=== PATIENT | male | born 1940 | race Caucasian/White ===

== ENCOUNTER 2017-11-11 10:13 | Emergency (ER) | payer OTHER, MEDICARE ==
--- NOTE | 2017-11-11 10:25 | PDOC ---
History of Present Illness - General Chief Complaint: Pain Stated Complaint: LOWER BACK PAIN AND LEFT HIP PAIN Time Seen by Provider: 11/11/17 10:18 History Source: Patient, Family (Information provided by patient ( somehow forgetful) and his son present here. Patient walked in with support and difficulty. He , reportedely fell out of bed during the night , unable to get up by himself went downstairs on his buttocks, then called son for help. ), Primary Care Provider (Received phone call from Dr Jackson, concerd about this patient being noncompliant with his blood work , daily BS check-up etc) - History of Present Illness Timing/Duration: 24 hours Severity: moderate, severe Associated Symptoms: reports: malaise, weakness Past History - Travel Traveled outside of the country in the last 30 days: No Close contact w/someone who was outside of country & ill: No - Past Medical History Allergies/Adverse Reactions: Allergies Allergy/AdvReac Type Severity Reaction Status Date / Time No Known Drug Allergies Allergy Verified 05/24/12 17:17 Home Medications: Ambulatory Orders Allopurinol [Zyloprim -] 100 mg PO DAILY 11/11/17 Amlodipine Besylate 5 mg PO DAILY 11/11/17 Aspirin 81 mg PO HS 11/11/17 Brimonidine Tartrate [Alphagan P 0.1% -] 1 drop OS DAILY 11/11/17 Carvedilol [Coreg -] 25 mg PO BID 11/11/17 Empagliflozin [Jardiance] 10 mg PO DAILY 11/11/17 Finasteride [Proscar -] 5 mg PO HS 11/11/17 Glipizide Xl [Glucotrol Xl -] 5 mg PO BID 11/11/17 Ramipril 2.5 mg PO DAILY 11/11/17 Simvastatin 10 mg PO HS 11/11/17 Sitagliptin Phosphate [Januvia] 100 mg PO DAILY 11/11/17 Tamsulosin HCl [Flomax -] 0.4 mg PO HS 11/11/17 Timolol 0.5% [Timoptic 0.5%] 1 drop OS DAILY 11/11/17 Anemia: No Asthma: No Cancer: Yes (RENAL CANCER) Cardiac Disorders: No CVA: No COPD: No CHF: No Dementia: No Diabetes: Yes GI Disorders: No Disorders: Yes (H/O RENAL CANCER) HTN: Yes Hypercholesterolemia: Yes Liver Disease: No Seizures: No Thyroid Disease: No - Surgical History Abdominal Surgery: No Appendectomy: No Cardiac Surgery: No Cholecystectomy: No Lung Surgery: Yes (bronchoscopy) Neurologic Surgery: No Orthopedic Surgery: Yes (RADIOFREQUENCY ABLATION) - Suicide/Smoking/Psychosocial Hx Smoking Status: Yes Smoking History: Former smoker Have you smoked in the past 12 months: No Number of Cigarettes Smoked Daily: 0 If you are a former smoker, when did you quit?: 1989 Hx Alcohol Use: Yes (RARELY) Drug/Substance Use Hx: No Substance Use Type: Alcohol Hx Substance Use Treatment: No Review of Systems - Review of Systems Able to Perform ROS?: Yes (limitations due to memory) Is the patient limited Lithuanian proficient: Yes Constitutional: Yes: Symptoms Reported, See HPI, Malaise HEENTM: No: Symptoms Reported, See HPI, Eye Pain, Blurred Vision, Tearing, Recent change in vision, Double Vision, Cataracts, Ear Pain, Ocular Prothesis, Ear Discharge, Nose Pain, Nose Congestion, Tinnitus, Nose Bleeding, Hearing Loss , Throat Pain, Throat Swelling, Mouth Pain, Dental Problems, Difficulty Swallowing, Mouth Swelling, Other Respiratory: Yes: SOB with Exertion Cardiac (ROS): No: Symptoms Reported, See HPI, Chest Pain, Edema, Irregular Heart Rate, Lightheadedness, Palpitations, Syncope, Chest Tightness, Other ABD/GI: No: Symptoms Reported, See HPI, Abdominal Distended, Abd. Pain w/ defecation, Blood Streaked Bowels, Constipated, Diarrhea, Difficulty Swallowing , Nausea, Poor Appetite, Poor Fluid Intake, Rectal Bleeding, Vomiting, Indigestion, Abdominal cramping, Tarry Stools, Other Musculoskeletal: Yes: See HPI, Joint Pain, Muscle Pain, Muscle Weakness Integumentary: No: Symptoms Reported, See HPI, Bruising, Change in Color, Change in Hair/Nails, Dryness, Erythema, Flushing, Lesions, Lumps, Pallor, Pruritus, Rash, Sweating, Other Neurological: Yes: Pre-Existing Deficit, Unsteady Gait, Other (memory impairment ) Psychiatric: Yes: Depression Hematologic/Lymphatic: Yes: Easy Bruising All Other Systems: Reviewed and Negative *Physical Exam - Physical Exam General Appearance: Yes: Nourished, Appropriately Dressed, Moderate Distress HEENT: positive: [place] Neck: positive: Supple Respiratory/Chest: positive: Lungs Clear Extremity: positive: Normal Capillary Refill, Normal Range of Motion, Tender ( Tender at palpation on the left lateral hip/pelvis area) Integumentary: positive: Normal Color, Dry, Other (Few old healing echymotic areas over upper extremities.) ED Treatment Course - LABORATORY CBC & Chemistry Diagram: 11/11/17 11:10 11/11/17 11:10 *DC/Admit/Observation/Transfer Diagnosis at time of Disposition: Uncontrolled diabetes mellitus Qualifiers: Diabetes mellitus type: type 2 Diabetes mellitus usp insulin use: unspecified usp insulin use status Diabetes mellitus complication status: with kidney complications Diabetes mellitus complication detail: with chronic kidney disease Chronic kidney disease stage: stage 2 (mild) Qualified Code(s): E11.22 - Type 2 diabetes mellitus with diabetic chronic kidney disease; E11.65 - Type 2 diabetes mellitus with hyperglycemia; E11.65 - Type 2 diabetes mellitus with hyperglycemia; E11.65 - Type 2 diabetes mellitus with hyperglycemia; E11.65 - Type 2 diabetes mellitus with hyperglycemia; N18.2 - Chronic kidney disease, stage 2 (mild); N18.2 - Chronic kidney disease, stage 2 (mild) Contusion, hip Qualifiers: Encounter type: initial encounter Laterality: left Qualified Code(s): S70.02XA - Contusion of left hip, initial encounter - Discharge Dispostion Condition at time of disposition: Stable - Referrals Referrals: Joao Lee MD [Staff Physician] - - Patient Instructions Printed Discharge Instructions: Complications of Type 2 Diabetes, Type 2 Diabetes Additional Instructions: Take medication daily as prescribed by your physician. See your doctor in 2 days - Post Discharge Activity
[2017-11-11 10:30] VITALS: TEMP 98.3; BMI 28.2
[2017-11-11 11:51] LABS: BASO % 0.4 % (0-2.0); HEMATOCRIT 47.6 % (35.4-49); LYMPH % 14.2 % (8-40); MCH 29.9 pg (25.7-33.7); MCHC 33.7 g/dl (32.0-35.9); MEAN CELL VOLUME 88.6 fl (80-96); MEAN PLT VOLUME 9.1 fl (7.5-11.1); MONO % 8.2 % (3.8-10.2); NEUT % 76.2 % (42.8-82.8); PLATELET COUNT 230 K/MM3 (134-434); RBC 5.37 M/mm3 (4.00-5.60); RDW 12.4 % (11.9-15.9); WHITE BLOOD COUNT 10.4 K/mm3 (4.0-10.8)
[2017-11-11 12:33] LABS: PH,URINE 5.5 (4.5-8); URINE APPEARANCE Clear; URINE BILIRUBIN Negative (NEGATIVE); URINE GLUCOSE (UA) 3+ (NEGATIVE); URINE KETONE 1+ (NEGATIVE); URINE LEUK ESTERASE Negative (NEGATIVE); URINE NITRITE Positive (NEGATIVE); URINE UROBILINOGEN 0.2 (0.2-1.0)
[2017-11-11 13:03] LABS: ALBUMIN 4.1 g/dl (3.4-5.0); ANION GAP 7 (8-16); BLOOD UREA NITROGEN 23 mg/dL (7-18); CALCIUM 9.2 mg/dL (8.5-10.1); CHLORIDE 102 mmol/L (98-107); CO2 29 mmol/L (21-32); POTASSIUM 4.1 mmol/L (3.5-5.1); SODIUM 138 mmol/L (136-145)
[2017-11-11 13:10] LABS: ALK PHOS 97 U/L (45-117); BILIRUBIN,TOTAL 1.3 mg/dL (0.2-1.0); CREATININE 1.5 mg/dL (0.7-1.3); SGOT/AST 13 U/L (15-37); SGPT/ALT 20 U/L (12-78); TOT PROT 6.7 g/dl (6.4-8.2)
[2017-11-11 13:14] LABS: URINE BLOOD 2+ (NEGATIVE); URINE COLOR YELLOW; URINE PROTEIN 2+ (NEGATIVE)
[2017-11-11 13:19] LABS: GLUCOSE,RANDOM 367 mg/dL (74-106)
[2017-11-11 13:31] LABS: EPI CELLS FEW /HPF; URINE CRYSTALS MODERATE /hpf (NONE SEEN); URINE WBC 0-3 (0-2)
[2017-11-11 14:33] VITALS: BP 186/96; PULSE 68
--- NOTE | 2017-11-12 15:57 | EKG ---
Test Reason : Blood Pressure : / mmHG Vent. Rate : 075 BPM Atrial Rate : 075 BPM P-R Int : 156 ms QRS Dur : 096 ms QT Int : 392 ms P-R-T Axes : 060 049 072 degrees QTc Int : 437 ms NORMAL SINUS RHYTHM NORMAL ECG WHEN COMPARED WITH ECG OF 11-JUL-2009 17:12, NO SIGNIFICANT CHANGE WAS FOUND Confirmed by LORENZO SANTILLAN MD ([id number]) on 11/12/2017 3:57:16 PM Referred By: MAUDE LITTLEJOHN Confirmed By:LORENZO SANTILLAN MD
== END 2017-11-11 14:50 | disposition home or self-care (01) ==
LOC: FER 10:13
DX: S70.02XA Contusion of left hip, initial encounter (principal); I12.9 Hypertensive chronic kidney disease with stage 1 through stage 4 chronic kidney disease, or unspecified chronic kidney disease; E11.22 Type 2 diabetes mellitus with diabetic chronic kidney disease; E11.65 Type 2 diabetes mellitus with hyperglycemia; N18.2 Chronic kidney disease, stage 2 (mild); E78.00 Pure hypercholesterolemia, unspecified; Z85.528 Personal history of other malignant neoplasm of kidney; Z87.891 Personal history of nicotine dependence; W06.XXXA Fall from bed, initial encounter; Y93.84 Activity, sleeping; Y92.003 Bedroom of unspecified non-institutional (private) residence as the place of occurrence of the external cause
CPT/HCPCS: 36415; 71046-TC-FY; 73523-TC-FY; 80053; 81003; 81015; 82550; 82553; 83036; 84153; 84484; 85025; 87086; 87186; 93005; 99284-25

== ENCOUNTER 2018-01-15 18:03 | Emergency (ER) | payer OTHER, MEDICARE ==
--- NOTE | 2018-01-15 18:55 | PDOC ---
History of Present Illness - General History Source: Patient, Family Exam Limitations: No Limitations - History of Present Illness Initial Comments: 01/15/18 18:58 The patient is a 77 year old male, with a significant past medical history of right nephrectomy for renal cell cancer in 2008, hypertension, hyperlipidemia, diabetes, gout, spinal stenosis, generalized OA,, who presents to the emergency department with, 2 days of worsening hematuria. As per patient, his hematuria began yesterday as bits and pieces and was since progressed as completely blood. He reports associated urinary retention. He reports a similar episode in the past due to a UTI. He denies any recent fevers, chills, headache or dizziness. He denies any recent nausea, vomit, diarrhea or constipation. He denies any recent chest pain or shortness of breath. He denies any recent dysuria, frequency, or urgency. Allergies: NKA Past surgical history: Right nephrectomy. Primary Care Physician: Dr. Lee <Ying Lee - Last Filed: 01/15/18 18:57> - General History Source: Patient, Family Exam Limitations: No Limitations <Jarad Hall - Last Filed: 01/16/18 09:44> - General Chief Complaint: Hematuria Stated Complaint: HEMATURIA Time Seen by Provider: 01/15/18 18:19 Past History <Ying Lee - Last Filed: 01/15/18 18:57> - Past Medical History Anemia: No Asthma: No Cancer: Yes (RENAL CANCER) Cardiac Disorders: No CVA: No COPD: No CHF: No Dementia: No Diabetes: Yes GI Disorders: No Disorders: Yes (H/O RENAL CANCER) HTN: Yes Hypercholesterolemia: Yes Liver Disease: No Seizures: No Thyroid Disease: No - Surgical History Abdominal Surgery: No Appendectomy: No Cardiac Surgery: No Cholecystectomy: No Lung Surgery: Yes (bronchoscopy) Neurologic Surgery: No Orthopedic Surgery: Yes (RADIOFREQUENCY ABLATION) - Suicide/Smoking/Psychosocial Hx Smoking Status: Yes Smoking History: Former smoker Have you smoked in the past 12 months: No Number of Cigarettes Smoked Daily: 0 If you are a former smoker, when did you quit?: 1989 Hx Alcohol Use: Yes (RARELY) Drug/Substance Use Hx: No Substance Use Type: Alcohol Hx Substance Use Treatment: No <Jarad Hall - Last Filed: 01/16/18 09:44> - Past Medical History Allergies/Adverse Reactions: Allergies Allergy/AdvReac Type Severity Reaction Status Date / Time No Known Drug Allergies Allergy Verified 01/15/18 18:04 Home Medications: Ambulatory Orders Allopurinol [Zyloprim -] 100 mg PO DAILY 11/11/17 Aspirin 81 mg PO HS 11/11/17 Carvedilol [Coreg -] 25 mg PO BID 11/11/17 Glipizide Xl [Glucotrol Xl -] 10 mg PO BID 11/11/17 Ramipril 2.5 mg PO HS 11/11/17 Simvastatin 10 mg PO HS 11/11/17 Tamsulosin HCl [Flomax -] 0.4 mg PO HS 11/11/17 Ciprofloxacin [Cipro -] 500 mg PO Q12H #14 tablet 01/15/18 Empagliflozin [Jardiance] 25 mg PO DAILY 01/15/18 Finasteride 5 mg PO HS 01/15/18 Sitagliptin Phosphate [Januvia] 100 mg PO DAILY 01/15/18 Review of Systems - Review of Systems Able to Perform ROS?: Yes Comments:: 01/15/18 18:58 GENERAL/CONSTITUTIONAL: No fever or chills. No weakness. HEAD, EYES, EARS, NOSE AND THROAT: No change in vision. No ear pain or discharge. No sore throat. CARDIOVASCULAR: No chest pain or shortness of breath. RESPIRATORY: No cough, wheezing, or hemoptysis. GASTROINTESTINAL: No nausea, vomiting, diarrhea or constipation. +GENITOURINARY: Hematuria. Retention. No dysuria, frequency, or change in urination. MUSCULOSKELETAL: No joint or muscle swelling or pain. No neck or back pain. SKIN: No rash NEUROLOGIC: No headache, vertigo, loss of consciousness, or change in strength/ sensation. ENDOCRINE: No increased thirst. No abnormal weight change. HEMATOLOGIC/LYMPHATIC: No anemia, easy bleeding, or history of blood clots. ALLERGIC/IMMUNOLOGIC: No hives or skin allergy. All Other Systems: Reviewed and Negative <Ying Lee - Last Filed: 01/15/18 18:57> *Physical Exam - Physical Exam Comments: 01/15/18 18:58 GENERAL: Awake, alert, and fully oriented, in no acute distress HEAD: No signs of trauma NECK: Normal ROM, supple, no lymphadenopathy, JVD, or masses LUNGS: Breath sounds equal, clear to auscultation bilaterally. No wheezes, and no crackles HEART: Regular rate and rhythm, normal S1 and S2, no murmurs, rubs or gallops ABDOMEN: Soft, nontender, normoactive bowel sounds. No guarding, no rebound. No masses : Penis circumcised. No tenderness or discharge. EXTREMITIES: Normal range of motion, no edema. No clubbing or cyanosis. No cords, erythema, or tenderness NEUROLOGICAL: Cranial nerves II through XII grossly intact. Normal speech, normal gait SKIN: Warm, Dry, normal turgor, no rashes or lesions noted. <Ying Lee - Last Filed: 01/15/18 18:57> ED Treatment Course - LABORATORY CBC & Chemistry Diagram: 01/15/18 19:00 01/15/18 19:00 <Jarad Hall - Last Filed: 01/16/18 09:44> Medical Decision Making - Medical Decision Making 01/15/18 18:53 A portion of this note was documented by scribe services under my direction. I have reviewed the details of the note, within reason, and agree with the documentation with the following case summary and management plan written by me. Patient treated in the ED. Nursing notes are reviewed and incorporated into the medical decision-making. Vital signs reviewed. Peripheral IV access obtained by the nurse, laboratory studies are drawn and sent, reviewed and interpreted by myself. 77-year-old male with past medical history of renal cancer status post nephrectomy, hypertension, diabetes, hyperlipidemia, prior urinary tract infection Presents with hematuria. The patient reported the symptoms initiated yesterday. Stated that he was having some blood per stream. Denies dysuria. Denies fevers chills or abdominal pain. Patient did have a similar episode some time ago which was diagnosed as a urinary tract infection. Patient does report a prior history of renal CA status post nephrectomy. However, patient has not had a recent cystoscopy. We'll need to rule out urine tract infection. However, I advised the patient that he will likely benefit from another cystoscopy to rule out malignancy. We' ll obtain blood work and a urinalysis with urine culture. The patient will be referred to a urologist. Patient verbalizes understanding agrees with plan. 01/15/18 19:29 Urine Test Results Urine Color Dk yellow 01/15/18 19:00 Urine Appearance Cloudy 01/15/18 19:00 Urine pH 5.0 (4.5-8) 01/15/18 19:00 Ur Specific [place] 1.010 (1.005-1.025) 01/15/18 19:00 Urine Protein 3+ (NEGATIVE) H 01/15/18 19:00 Urine Glucose (UA) 2+ (NEGATIVE) H 01/15/18 19:00 Urine Ketones Negative (NEGATIVE) 01/15/18 19:00 Urine Blood 3+ (NEGATIVE) H 01/15/18 19:00 Urine Nitrite Negative (NEGATIVE) 01/15/18 19:00 Urine Bilirubin Negative (NEGATIVE) 01/15/18 19:00 Ur Leukocyte Esterase Trace (NEGATIVE) H 01/15/18 19:00 Pt signed out to Dr. Jackson for further management and disposition. <Jarad Hall - Last Filed: 01/16/18 09:44> *DC/Admit/Observation/Transfer - Attestations Scribe Attestion: 01/15/18 18:58 Documentation prepared by Ying Lee, acting as medical assistant secretary for Jarad Hall MD. <Ying Lee - Last Filed: 01/15/18 18:57> <Jarad Hall - Last Filed: 01/16/18 09:44> Diagnosis at time of Disposition: Hematuria Qualifiers: Hematuria type: unspecified type Qualified Code(s): R31.9 - Hematuria, unspecified - Discharge Dispostion Disposition: HOME Condition at time of disposition: Stable - Prescriptions Prescriptions: Ciprofloxacin [Cipro -] 500 mg PO Q12H #14 tablet - Referrals Referrals: Vincenzo Cooley MD [Staff Physician] - - Patient Instructions Printed Discharge Instructions: DI for Hematuria Additional Instructions: Please take the 500 mg ciprofloxacin every 12 hours for 1 week. Please complete the antibiotics. It is very important that you follow up with urology as you may benefit from a cystoscopy. Anytime there is blood in the urine, there is always concerning findings for potential renal or bladder cancer. Drink plenty of fluids and rest.
[2018-01-15 19:23] LABS: URINE APPEARANCE Cloudy; URINE BILIRUBIN Negative (NEGATIVE); URINE GLUCOSE (UA) 2+ (NEGATIVE); URINE KETONE Negative (NEGATIVE); URINE NITRITE Negative (NEGATIVE); URINE UROBILINOGEN 0.2 (0.2-1.0)
[2018-01-15 19:24] LABS: URINE COLOR DK YELLOW; URINE LEUK ESTERASE TRACE (NEGATIVE); URINE PROTEIN 3+ (NEGATIVE)
[2018-01-15] MEDS ORDERED: CIPROFLOXACIN 500 MG TABLET (RESTRICTED TO ID) PO ONE (19:25)
[2018-01-15 19:28] LABS: BASO % 0.7 % (0-2.0); EOS % 3.4 % (0-4.5); HEMATOCRIT 45.2 % (35.4-49); HEMOGLOBIN 15.2 GM/dl (11.7-16.9); LYMPH % 12.9 % (8-40); MCH 30.1 pg (25.7-33.7); MCHC 33.6 g/dl (32.0-35.9); MEAN CELL VOLUME 89.6 fl (80-96); MEAN PLT VOLUME 8.9 fl (7.5-11.1); MONO % 8.8 % (3.8-10.2); NEUT % 74.2 % (42.8-82.8); PLATELET COUNT 222 K/MM3 (134-434); RBC 5.04 M/mm3 (4.00-5.60); RDW 12.8 % (11.9-15.9); WHITE BLOOD COUNT 14.5 K/mm3 (4.0-10.8)
[2018-01-15] MEDS ORDERED: CIPROFLOXACIN 250 MG TABLET (RESTRICTED TO ID) PO ONE (19:29)
[2018-01-15 19:32] VITALS: BP 160/83; PULSE 81; TEMP 98.4; BMI 25.2
[2018-01-15 19:35] LABS: ALBUMIN 4.2 g/dl (3.5-5.0); ALK PHOS 70 U/L (32-92); ANION GAP 8 (8-16); BILIRUBIN,TOTAL 0.6 mg/dl (0.2-1.0); BLOOD UREA NITROGEN 24 mg/dl (7-18); CALCIUM 9.1 mg/dl (8.4-10.2); CHLORIDE 103 mmol/L (98-107); CO2 27 mmol/L (22-28); CREATININE 1.5 mg/dl (0.6-1.3); GLUCOSE,RANDOM 187 mg/dl (74-106); POTASSIUM 3.8 mmol/L (3.5-5.1); SGOT/AST 18 U/L (10-42); SGPT/ALT 14 U/L (10-40); SODIUM 138 mmol/L (136-145); TOT PROT 6.7 g/dl (6.4-8.3)
[2018-01-15 22:02] LABS: URINE BACTERIA FEW /hpf (NEGATIVE); URINE RBC MANY /hpf (0-3); URINE WBC 20-30 (0-2)
== END 2018-01-15 20:23 | disposition home or self-care (01) ==
LOC: FER 18:03
DX: R31.9 Hematuria, unspecified (principal); I10 Essential (primary) hypertension; Z87.891 Personal history of nicotine dependence; E78.00 Pure hypercholesterolemia, unspecified; E11.9 Type 2 diabetes mellitus without complications
CPT/HCPCS: 36415; 80053; 81003; 81015; 85025; 87086; 99281-25

== ENCOUNTER 2018-04-27 11:17 | Observation (INO) | payer OTHER, MEDICARE ==
[2018-04-27] MEDS ORDERED: HEMOQUE CONTROL SOLUTION ONE (11:28)
[2018-04-27] MEDS ORDERED: SODIUM CHLORIDE 1,000 ML IV SCH (11:30)
--- NOTE | 2018-04-27 11:53 | PDOC ---
History of Present Illness - General Chief Complaint: Altered Mental Status Stated Complaint: AMS Time Seen by Provider: 04/27/18 11:20 - History of Present Illness Initial Comments: 04/27/18 11:53 77 yo M with h/o HTN, HLD, DM, s/p right neprhectomy, renal ca. 2009, spinal stenosis, and dementia BIBA with altered mental status. Per patient son and patient at bedside, patient has had increased agitation over the past 24 hours, with episode of combativeness, and increased irritation yesterday evening. Son reports recent change in mood, with worsening angry outbursts, and increased forgetfulness. Patient states that patient was unresponsive to verbal stimuli tjhis AM, and stared at her with "blank expression," this morning, and did not respond to questions, or commands, lasting for 30 minutes. This prompted ED encounter. reports last known well at 1000 PM yesterday evening prior to pt. falling asleep. Patient woke up this AM at 0900. Patient typically ambulates with cane unassisted, with no recent difficulty with ambulation. Lives with alone at home, and has home health aide. 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 Patient denies N/V, F,C, CP, SOB, urinary complaints, abdominal pain, diarrhea, constipation, lightheadedness, sensory changes. PMHx: as noted above ROS: as noted SHx: Denies Etoh,tobacco, IVDA Allergies:NKDA Past History - Past Medical History Allergies/Adverse Reactions: Allergies Allergy/AdvReac Type Severity Reaction Status Date / Time No Known Drug Allergies Allergy Verified 04/27/18 11:33 Home Medications: Ambulatory Orders Allopurinol [Zyloprim -] 100 mg PO ASDIR 04/27/18 Aspirin [Dakota Chewable] 81 mg PO HS 04/27/18 Carvedilol [Coreg -] 25 mg PO BID 04/27/18 Duloxetine HCl [Cymbalta -] 30 mg PO BID 04/27/18 Empagliflozin [Jardiance] 25 mg PO DAILY 04/27/18 Finasteride [Proscar] 5 mg PO HS 04/27/18 Glipizide [Glucotrol -] 5 mg PO BID 04/27/18 Ramipril [Altace] 2.5 mg PO HS 04/27/18 Simvastatin [Zocor] 10 mg PO HS 04/27/18 Sitagliptin Phosphate [Januvia] 100 mg PO DAILY 04/27/18 Tamsulosin HCl [Flomax] 0.4 mg PO HS 04/27/18 Anemia: No Asthma: No Cancer: Yes (RENAL CANCER) Cardiac Disorders: No CVA: No COPD: No CHF: No Dementia: No Diabetes: Yes GI Disorders: No Disorders: Yes (H/O RENAL CANCER) HTN: Yes Hypercholesterolemia: Yes Liver Disease: No Seizures: No Thyroid Disease: No - Surgical History Abdominal Surgery: No Appendectomy: No Cardiac Surgery: No Cholecystectomy: No Lung Surgery: Yes (bronchoscopy) Neurologic Surgery: No Orthopedic Surgery: Yes (RADIOFREQUENCY ABLATION) - Suicide/Smoking/Psychosocial Hx Smoking Status: Yes Smoking History: Unknown if ever smoked Have you smoked in the past 12 months: No Number of Cigarettes Smoked Daily: 0 If you are a former smoker, when did you quit?: 1989 Hx Alcohol Use: No (UNABLE TO OBTAIN) Drug/Substance Use Hx: No (UNABLE TO OBTAIN) Substance Use Type: Alcohol Hx Substance Use Treatment: No Neuro Specific PMHX - Complaint Specific PMHX Glaucoma: No Review of Systems - Review of Systems Comments:: 04/27/18 11:54 GENERAL/CONSTITUTIONAL: No fever or chills. No weakness. HEAD, EYES, EARS, NOSE AND THROAT: No change in vision. No ear pain or discharge. No sore throat. CARDIOVASCULAR: No chest pain or shortness of breath RESPIRATORY: No cough, wheezing, or hemoptysis. GASTROINTESTINAL: No nausea, vomiting, diarrhea or constipation. GENITOURINARY: No dysuria, frequency, or change in urination. MUSCULOSKELETAL: No joint or muscle swelling or pain. No neck or back pain. SKIN: No rash NEUROLOGIC: No headache, vertigo, loss of consciousness, or change in strength/ sensation. ENDOCRINE: No increased thirst. No abnormal weight change HEMATOLOGIC/LYMPHATIC: No anemia, easy bleeding, or history of blood clots. ALLERGIC/IMMUNOLOGIC: No hives or skin allergy. *Physical Exam - Vital Signs Last Vital Signs Temp Pulse Resp BP Pulse Ox 99.0 F 80 18 207/83 H 96 04/27/18 11:17 04/27/18 11:17 04/27/18 11:17 04/27/18 11:17 04/27/18 11:17 - Physical Exam Comments: 04/27/18 11:54 GENERAL: Awake, alert, and fully oriented, in no acute distress HEAD: No signs of trauma, normocephalic, atraumatic EYES: PERRLA, EOMI, sclera anicteric, conjunctiva clear ENT: Auricles normal inspection, hearing grossly normal, nares patent, oropharynx clear without exudates. Moist mucosa NECK: Normal ROM, supple, no lymphadenopathy, JVD, or masses LUNGS: No distress, speaks full sentences, clear to auscultation bilaterally HEART: Regular rate and rhythm, normal S1 and S2, no murmurs, rubs or gallops, peripheral pulses normal and equal bilaterally. ABDOMEN: Soft, nontender, normoactive bowel sounds. No guarding, no rebound. No masses EXTREMITIES : Normal inspection, Normal range of motion, no edema. No clubbing or cyanosis. NEUROLOGICAL: Cranial nerves II through XII grossly intact. Normal speech, no focal sensorimotor deficits. Neg dysmetria on FTN. Normal DEVIN. Gait not assesed. SKIN: Warm, Dry, normal turgor, no rashes or lesions noted NIH Stroke Scale - Initial Evaluation Level of consciousness: Alert Ask patient the month and their age: Answers one correctly Ask patient to open & close eyes; make fist and let go: Obeys both correctly Best gaze (horizontal eye movement): Normal Visual field testing: No visual field loss Facial paresis (Show teeth/raise eyebrows/close eyes tight): Normal symmetrical movement Motor Function: Left Arm: Normal Motor Function: Right Arm: Normal (extends arm 90 (or 45) degrees for 10 seconds without drift Motor Function: Left Leg: Normal (extends leg 30 degrees for 5 seconds without drift) Motor Function: Right Leg: Normal (extends leg 30 degrees for 5 seconds without drift) Limb Ataxia: No ataxia Sensory(Use pinprick test arms,legs,trunk,face/side to side): Normal Best language (Describe picture, name items, read sentences): No Aphasia Dysarthria (read several words): Normal articulation Extinction and Inattention: No abnormality - Total Score NIH Stroke Scale Score: 1 Critical Care Time/MDM Note - Medical Decision Making Note: 04/27/18 11:53 77 yo M with h/o HTn, HLD, DM, s/p right neprhectomy, renal ca. 2009, spinal stenosis, and dementia BIBA with altered mental status. BP 207/83, vitals otherwise wnl, AF, A&Ox2. NIHSS 1, Last known well yesterday evening 04/26/18 at 1000 PM. ACS/DE r/o. Patient with absent neruologic deficits on exam. Will assess for VBI. ACS/DE r/o. Will consider hypoglycemia, hypovolemia, cardiac dysarrythmias, electrolyte abnml, toxic or metabolic derangements, acid-base disturbances, or infection. NIHSS 1 Ed Course: CBC, CMP, Pt/INR, Cardiac Pr. EKG, CXR CTH NS 04/27/18 12:37 CTH: No acute intracranial pathology 04/27/18 12:37 BUN/CR: 19/1.5 Trop: Neg EKG: NSR wit habsent ANGUS, STD. + LVH, with normal axis, and normla interval duration. CBC: Unremarkable Plant to admit. 04/27/18 12:53 Patient admitted to hospitalist. signed out to Cookie Drake. Discharge Disposition - Diagnosis TIA (transient ischemic attack) Altered mental status, unspecified Qualifiers: Altered mental status type: unspecified Qualified Code(s): R41.82 - Altered mental status, unspecified - Discharge Dispostion Condition at time of disposition: Stable Last Admission D/C Date: 01/23/16 Decision to Admit order: Yes - Referrals Referrals: Joao Lee MD [Primary Care Provider] - - Patient Instructions - Post Discharge Activity
[2018-04-27 12:17] LABS: BASO % 1.1 % (0-2.0); EOS % 5.6 % (0-4.5); HEMOGLOBIN 14.7 GM/dl (11.7-16.9); LYMPH % 24.3 % (8-40); MCH 29.1 pg (25.7-33.7); MEAN CELL VOLUME 90.9 fl (80-96); MEAN PLT VOLUME 9.6 fl (7.5-11.1); MONO % 9.9 % (3.8-10.2); NEUT % 59.1 % (42.8-82.8); PLATELET COUNT 184 K/MM3 (134-434); RBC 5.06 M/mm3 (4.00-5.60); RDW 13.1 % (11.9-15.9); WHITE BLOOD COUNT 8.1 K/mm3 (4.0-10.8)
[2018-04-27 12:21] LABS: INR 1.16 (0.82-1.09)
[2018-04-27 12:30] LABS: ALBUMIN 3.9 g/dl (3.5-5.0); ALK PHOS 62 U/L (32-92); ANION GAP 5 MMOL/L (8-16); BILIRUBIN,TOTAL 1.5 mg/dl (0.2-1.0); BLOOD UREA NITROGEN 19 mg/dl (7-18); CHLORIDE 105 mmol/L (98-107); CHOLESTEROL 148 mg/dl; CO2 31 mmol/L (22-28); CREATININE 1.5 mg/dl (0.6-1.3); GLUCOSE,RANDOM 118 mg/dl (74-106); HDL CHOLESTEROL 55 mg/dl (29-89); POTASSIUM 3.7 mmol/L (3.5-5.1); SGOT/AST 16 U/L (10-42); SGPT/ALT 16 U/L (10-40); SODIUM 141 mmol/L (136-145); TOT PROT 6.1 g/dl (6.4-8.3); TRIGLYCERIDES 84 mg/dl (35-160)
--- NOTE | 2018-04-27 12:56 | HP ---
CHIEF COMPLAINT:altered mental status PCP: Dr Lee Nephrology: Dr Storey HISTORY OF PRESENT ILLNESS: Patient is a 77-year-old male, with a past medical history of Alzheimer's dementia, hypertension, hyperlipidemia, diabetes mellitus, renal CA (S/P right nephrectomy) gout, spinal stenosis, and right retinal tear. Both And (Irma ) at the Bedside Patient Is a Poor Historian. Reports At 9 AM on this date she noted patient was staring at her and was grunting "yes" to simple questions. reports that episode lasted approximately 30 minutes and patient returned to baseline. Son also reports recent changes in mood with angry outbursts and increased forgetfulness within the past week. Of note patient was recently treated by his primary care physician Dr. Lee for a urinary tract infection and completed a 7 day course of amoxicillin last dose was 03/31/2018. ER course was notable for: (1)CT of head No evidence of acute intracranial pathology (2)EKG normal sinus rhythm (3)B/P 207/83 hr 62 (4) asa 325mg given in ED Recent Travel: none PAST MEDICAL HISTORY: see hpi PAST SURGICAL HISTORY: right nephrectomy 2008 Social History: resides at home with Smoking: none Alcohol:none Drugs: none Family History: non-contributory Allergies No Known Drug Allergies Allergy (Verified 04/27/18 11:33) HOME MEDICATIONS: Home Medications Medication Instructions Recorded Allopurinol [Zyloprim -] 100 mg PO ASDIR 04/27/18 Aspirin [Dakota Chewable] 81 mg PO HS 04/27/18 Carvedilol [Coreg -] 25 mg PO BID 04/27/18 Duloxetine HCl [Cymbalta -] 30 mg PO BID 04/27/18 Empagliflozin [Jardiance] 25 mg PO DAILY 04/27/18 Finasteride [Proscar] 5 mg PO HS 04/27/18 Glipizide [Glucotrol -] 5 mg PO BID 04/27/18 Ramipril [Altace] 2.5 mg PO HS 04/27/18 Simvastatin [Zocor] 10 mg PO HS 04/27/18 Sitagliptin Phosphate [Januvia] 100 mg PO DAILY 04/27/18 Tamsulosin HCl [Flomax] 0.4 mg PO HS 04/27/18 REVIEW OF SYSTEMS CONSTITUTIONAL: Absent: fever, chills, diaphoresis, generalized weakness, malaise, loss of appetite, weight change HEENT: Absent: rhinorrhea, nasal congestion, throat pain, throat swelling, difficulty swallowing, mouth swelling, ear pain, eye pain, visual changes CARDIOVASCULAR: Absent: chest pain, syncope, palpitations, irregular heart rate, lightheadedness , peripheral edema RESPIRATORY: Absent: cough, shortness of breath, dyspnea with exertion, orthopnea, wheezing, stridor, hemoptysis GASTROINTESTINAL: Absent: abdominal pain, abdominal distension, nausea, vomiting, diarrhea, constipation, melena, hematochezia GENITOURINARY: Absent: dysuria, frequency, urgency, hesitancy, hematuria, flank pain, genital pain MUSCULOSKELETAL: Absent: myalgia, arthralgia, joint swelling, back pain, neck pain SKIN: Absent: rash, itching, pallor HEMATOLOGIC/IMMUNOLOGIC: Absent: easy bleeding, easy bruising, lymphadenopathy, frequent infections ENDOCRINE: Absent: unexplained weight gain, unexplained weight loss, heat intolerance, cold intolerance NEUROLOGIC: present: mental status changes Absent: headache, focal weakness or paresthesias, dizziness, unsteady gait, seizure,, bladder or bowel incontinence PSYCHIATRIC: Absent: anxiety, depression, suicidal or homicidal ideation, hallucinations. PHYSICAL EXAMINATION Vital Signs - 24 hr 04/27/18 04/27/18 11:17 11:52 Temperature 99.0 F Pulse Rate 80 Pulse Rate [ 62 Apical] Respiratory 18 18 Rate Blood Pressure 207/83 H Blood Pressure 190/80 H [Right Arm] O2 Sat by Pulse 96 97 Oximetry (%) GENERAL: Awake, alert, and oriented times and place, , in no acute distress. HEAD: Normal with no signs of trauma. EYES: Pupils equal, round and reactive to light, extraocular movements intact, sclera anicteric, conjunctiva clear. No lid lag. EARS, NOSE, THROAT: Ears normal, nares patent, oropharynx clear without exudates. Moist mucous membranes. NECK: Normal range of motion, supple without lymphadenopathy, JVD, or masses. LUNGS: Breath sounds equal, clear to auscultation bilaterally. No wheezes, and no crackles. No accessory muscle use. HEART: Regular rate and rhythm, normal S1 and S2 without murmur, rub or gallop. ABDOMEN: Soft, nontender, not distended, normoactive bowel sounds, no guarding, no rebound, no masses. No hepatomegaly or splenomegaly. MUSCULOSKELETAL: Normal range of motion at all joints. No bony deformities or tenderness. No CVA tenderness. UPPER EXTREMITIES: 2+ pulses, warm, well-perfused. No cyanosis. No clubbing. No peripheral edema. LOWER EXTREMITIES: 2+ pulses, warm, well-perfused. No calf tenderness. No peripheral edema. NEUROLOGICAL: Cranial nerves III-XII intact. Normal speech. right eye irregular pupil, (chronic) left eye: perrrla, eomi . PSYCHIATRIC: Cooperative. Good eye contact. Appropriate mood and affect. SKIN: Warm, dry, normal turgor, no rashes or lesions noted, normal capillary refill. Laboratory Results - last 24 hr 04/27/18 04/27/18 04/27/18 11:31 11:49 11:49 WBC 8.1 RBC 5.06 Hgb 14.7 Hct 46.0 MCV 90.9 MCH 29.1 MCHC 32.0 RDW 13.1 Plt Count 184 MPV 9.6 Absolute Neuts (auto) 4.7 Neutrophils % 59.1 Lymphocytes % 24.3 Monocytes % 9.9 Eosinophils % 5.6 H Basophils % 1.1 PT with INR 13.0 INR 1.16 Sodium Potassium Chloride Carbon Dioxide Anion Gap BUN Creatinine Creat Clearance w eGFR POC Glucometer [id number] Random Glucose Calcium Total Bilirubin AST ALT Alkaline Phosphatase Troponin I Total Protein Albumin Triglycerides Cholesterol Total LDL Cholesterol HDL Cholesterol 04/27/18 04/27/18 11:49 11:49 WBC RBC Hgb Hct MCV MCH MCHC RDW Plt Count MPV Absolute Neuts (auto) Neutrophils % Lymphocytes % Monocytes % Eosinophils % Basophils % PT with INR INR Sodium 141 Potassium 3.7 Chloride 105 Carbon Dioxide 31 H Anion Gap 5 L BUN 19 H Creatinine 1.5 H Creat Clearance w eGFR 45.50 POC Glucometer Random Glucose 118 H Calcium 9.0 Total Bilirubin 1.5 H AST 16 ALT 16 Alkaline Phosphatase 62 Troponin I < 0.03 Total Protein 6.1 L Albumin 3.9 Triglycerides 84 Cholesterol 148 Total LDL Cholesterol 76 HDL Cholesterol 55 ASSESSMENT/PLAN: 1) neurology metabolic encephalopathy - Patient returns to baseline as per and son, continue neuro checks every 6 hours - MRI of brain on March 19, 2018 reviewed chronic cerebellar infarcts, findings consistent with Alzheimer's dementia - pending urinalysis and urine culture - appreciate neurology input Alzheimer's dementia - Fall precautions - appreciate neurology input 2) Cardiovascular hypertensive urgency -b/p 200/90 upon arrival to the emergency department in sign report patient has not taken his morning medications, will restart home medications, strict blood pressure monitoring every 4 hours - pending echo - continue home dose coreg and altace 3) endocrine DM - fingersticks achs with regular insulin sliding scale, continue jardience and glyburide. - pending hgb a1c and tsh 4) bph - continue flomax and proscar - monitor for signs of urinary retention - pending UA and urine culture f/e/n - low sodium/diabetic diet - replete electrolytes prin ppx - oob - physical therapy evaluation dispo: pt requires obsv admission Visit type - Emergency Visit Emergency Visit: Yes ED Registration Date: 04/27/18 Care time: The patient presented to the Emergency Department on the above date and was hospitalized for further evaluation of their emergent condition. - New Patient This patient is new to me today: Yes Date on this admission: 04/28/18 - Critical Care Critical Care patient: No Hospitalist Screening - Colonoscopy Questionnaire Colonoscopy Questionnaire: Colonoscopy Questionnaire - Patient: 50 - 75 years old and never had a screening colonoscopy: No History of colon or rectal polyps, or CA: No History of IBD, Crohn's disease or UC: No History of abdominal radiation therapy as a child: No - Relative: 1 with colon or rectal CA, or polyps at age 60 or younger: No Colon or rectal CA diagnosed at age 45 or younger: No Multiple relatives with colon or rectal CA: No - Outcome: Screening Result: Negative Screen
[2018-04-27] MEDS ORDERED: ASPIRIN 325 MG ENTERIC COATED TABLET (FP) PO ONE (13:15)
[2018-04-27] MEDS ORDERED: CARVEDILOL 25 MG TABLET (FP) PO ONE (13:15)
--- NOTE | 2018-04-27 13:53 | PDOC ---
Attending Attestation - Resident Resident Name: Jake Houston - ED Attending Attestation I have performed the following: I have examined & evaluated the patient, The case was reviewed & discussed with the resident, I agree w/resident's findings & plan, Exceptions are as noted - HPI HPI: 04/27/18 13:53 Agree with Residents HPI - Physicial Exam PE: 04/27/18 13:53 Agree with residents PE - Medical Decision Making 04/27/18 13:55 77 years old past medical history significant for Alzheimer's dementia hypertension hyperlipidemia diabetes renal CA status post nephrectomy gout retinal tear and TIAs in the past presents to the ED with episode of confusion and aphasia this morning. Last seen normal last night. Episode lasted approximately 30-45 minutes currently patient is back to his baseline mental status. No weakness no numbness. No clear exacerbating or alleviating factors. At this time and I HSS stroke scale score 0. Not candidate for TPA given score as well as onset of symptoms being yesterday Head CT negative for acute pathology. Labs within normal limits. We'll admit hospital for further management and neurology consultation. Full dose aspirin ordered.
[2018-04-27] MEDS ORDERED: ACETAMINOPHEN 325 MG TABLET (FP) PO PRN (14:18)
[2018-04-27 14:31] LABS: URINE APPEARANCE Clear; URINE BILIRUBIN Negative (NEGATIVE); URINE COLOR Amber; URINE GLUCOSE (UA) 3+ (NEGATIVE); URINE KETONE Negative (NEGATIVE); URINE LEUK ESTERASE Negative (NEGATIVE); URINE NITRITE Negative (NEGATIVE); URINE PROTEIN 1+ (NEGATIVE); URINE UROBILINOGEN 0.2 (0.2-1.0)
[2018-04-27 15:35] LABS: URINE WBC 0-1 (0-2)
[2018-04-27 15:58] LABS: COCAINE, UR NEGATIVE ng/ml (CUTOFF=300); METHADONE, UR NEGATIVE ng/ml (CUTOFF=300); OPIATES, URI NEGATIVE ng/ml (CUTOFF=300); PHENCYCLIDINE,URINE NEGATIVE ng/ml (CUTOFF=25); URINE AMPHETAMINES NEGATIVE ng/ml (CUTOFF=500); URINE BARBITURATES NEGATIVE ng/ml (CUTOFF=200); URINE BENZODIAZEPINES NEGATIVE ng/ml (CUTOFF=200)
[2018-04-27] MEDS: glipiZIDE 5 MG TABLET (FP) PO SCH (16:30)
--- NOTE | 2018-04-27 16:53 | ECHO ---
Name: FABIO YI Exam:Adult Echocardiogram Study Date: 04/27/2018 02:38 PM Age: 77 yrs Reason For Study: HTN Height: 72 in Weight: 165 lb BSA: 2.0 m2 MMode/2D Measurements & Calculations IVSd: 1.2 cm Ao root diam: 2.8 cm LVIDd: 5.0 cm LA dimension: 1.9 cm LVIDs: 3.7 cm LVPWd: 1.2 cm EDV(Teich): 116.0 ml ESV(Teich): 57.0 ml Doppler Measurements & Calculations MV E max marlon: 96.6 cm/sec MV A max marlon: 85.8 cm/sec MV dec slope: 662.4 cm/sec2 MV E/A: 1.1 MR max marlon: 201.5 cm/sec TR max marlon: 174.0 cm/sec MR max P.2 mmHg TR max P.1 mmHg Procedure A complete two-dimensional transthoracic echocardiogram was performed (2D, M-mode, Doppler and color flow Doppler). The study was technically difficult with many images being suboptimal in quality. The patie nt was in normal sinus rhythm during the exam. Left Ventricle The left ventricle is normal in size. There is mild concentric left ventricular hypertrophy. Left belen tricular systolic function is normal. Ejection Fraction = 50%. Grade I diastolic dysfunction, (abnormal relaxa tion pattern). Regional wall motion abnormalities cannot be excluded due to limited visualization. Right Ventricle The right ventricle is normal in size and function. Atria Normal left and right atrial size and function. Mitral Valve There is mild mitral valve thickening. There is trace mitral regurgitation. Tricuspid Valve The tricuspid valve is not well visualized, but is grossly normal. There was insufficient TR detected to calculate RV systolic pressure. Aortic Valve There is moderate aortic sclerosis.;. The aortic valve is not well visualized. No hemodynamically sig nificant valvular aortic stenosis. Trace aortic regurgitation. Pulmonic Valve The pulmonic valve is not well visualized. Great Vessels The aortic root is normal size. Pericardium/Pleura Trivial pericardial effusion. Interpretation Summary The study was technically difficult with many images being suboptimal in quality. The left ventricle is normal in size. There is mild concentric left ventricular hypertrophy. Left ventricular systolic function is normal. There is trace mitral regurgitation. There was insufficient TR detected to calculate RV systolic pressure. Trace aortic regurgitation. No hemodynamically significant valvular aortic stenosis. MD Carlos Gutiérrez 04/27/2018 04:53 PM
[2018-04-27 16:58] VITALS: BMI 26.9
[2018-04-27] MEDS: INSULIN SLIDING SCALE (NOVOLOG) 1 VIAL SQ SCH (17:05)
--- NOTE | 2018-04-27 17:20 | CON.NEURO ---
Consult - Alcohol/Substance Use Hx Alcohol Use: No (UNABLE TO OBTAIN) - Smoking History Smoking history: Unknown if ever smoked Have you smoked in the past 12 months: No Aproximately how many cigarettes per day: 0 If you are a former smoker, when did you quit?: 1989 Home Medications - Allergies Allergies/Adverse Reactions: Allergies Allergy/AdvReac Type Severity Reaction Status Date / Time No Known Drug Allergies Allergy Verified 04/27/18 11:33 - Home Medications Home Medications: Ambulatory Orders Allopurinol [Zyloprim -] 100 mg PO ASDIR 04/27/18 Aspirin [Dakota Chewable] 81 mg PO HS 04/27/18 Carvedilol [Coreg -] 25 mg PO BID 04/27/18 Duloxetine HCl [Cymbalta -] 30 mg PO BID 04/27/18 Empagliflozin [Jardiance] 25 mg PO DAILY 04/27/18 Finasteride [Proscar] 5 mg PO HS 04/27/18 Glipizide [Glucotrol -] 5 mg PO BID 04/27/18 Ramipril [Altace] 2.5 mg PO HS 04/27/18 Simvastatin [Zocor] 10 mg PO HS 04/27/18 Sitagliptin Phosphate [Januvia] 100 mg PO DAILY 04/27/18 Tamsulosin HCl [Flomax] 0.4 mg PO HS 04/27/18 Physical Exam-Neuro Vital Signs: Vital Signs Temperature 97.7 F 04/27/18 16:30 Pulse Rate 63 04/27/18 16:30 Respiratory Rate 19 04/27/18 16:30 Blood Pressure 166/76 04/27/18 16:30 O2 Sat by Pulse Oximetry (%) 98 04/27/18 16:30 Labs: CBC, BMP 04/27/18 11:49 04/27/18 11:49 INR, PTT INR 1.16 (0.82-1.09) 04/27/18 11:49 Assessment/Plan cc Memory getting worse and have some speech difficulty for few hours and now back to baseline HPI 77 year old male history of Dementia, Alzheimer disease, HTN, Hyperlipidemia , DM, Back pain and spinal stenosis. He lives with his in [place] in independent house. He has been having memory difficulty for a while and been diagnosed with Alzheimer disease. Recently their children has been pushing to go to assistance living facility. Patient was not talking enough and today morning he kept saying yes to every question. got worried and brought him to hospital. He has ct scan done . PMH as above. Social History- no toxic habits and lives with , who suffers from copd NKDA FH , ROS reviewed in chart HOME MEDICATIONS: Home Medications Medication Instructions Recorded Allopurinol [Zyloprim -] 100 mg PO ASDIR 04/27/18 Aspirin [Dakota Chewable] 81 mg PO HS 04/27/18 Carvedilol [Coreg -] 25 mg PO BID 04/27/18 Duloxetine HCl [Cymbalta -] 30 mg PO BID 04/27/18 Empagliflozin [Jardiance] 25 mg PO DAILY 04/27/18 Finasteride [Proscar] 5 mg PO HS 04/27/18 Glipizide [Glucotrol -] 5 mg PO BID 04/27/18 Ramipril [Altace] 2.5 mg PO HS 04/27/18 Simvastatin [Zocor] 10 mg PO HS 04/27/18 Sitagliptin Phosphate [Januvia] 100 mg PO DAILY 04/27/18 Tamsulosin HCl [Flomax] 0.4 mg PO HS 04/27/18 Neurological Examination Alert oriented x 1, he is not able to tell how old he is , he did not know what hospital, and not able to tell what year is this he is able to follow command, he was able to follow command, speech is normal eomi, pupils reactive no face aymmetry moving all extremity mmse is 18 and poor functional score ct unremarkable Assessment- Alzheimer disease, suggest to do b12, folate tsh with next blood drawn, and low dose aricept can be start. presenting symptoms could be nonspecific , clinically less likely to be tia, and just progression of alzehimer diseae and may need social work consult and need placement . 2. Possible tia, carotid ultrasound is normal, given his risk factor tia cant be ruled out ,his carotid ultrasound is normal. I would order an mri as part of work up, if he did not tolerate , need not to pursue aggressively as it would not make too much difference in terms of treatment Thanking you so much Mayur Cannon MD
[2018-04-27] MEDS ORDERED: TUBERCULIN PPD 5 TU/0.1ML VIAL ID ONE (18:36)
[2018-04-27] MEDS ORDERED: TUBERCULIN PPD 5 TU/0.1ML SYRINGE (IN PATIENT USE ONLY) ID ONE ×2 (18:45→19:00)
[2018-04-27] MEDS: RAMIPRIL 2.5 MG CAPSULE (FP) PO SCH (21:30)
[2018-04-27] MEDS: ATORVASTATIN CA 10 MG TABLET (FP) PO SCH (21:30)
[2018-04-27] MEDS: CARVEDILOL 25 MG TABLET (FP) PO SCH (21:30)
[2018-04-27] MEDS: ASPIRIN 81 MG CHEWABLE TABLETS PO SCH (21:30)
[2018-04-27] MEDS: TAMSULOSIN HCL 0.4 MG CAP.ER.24H (FP) PO SCH (21:31)
[2018-04-27] MEDS: DULoxetine HCL 30 MG CAPSULE.DR (FP) PO SCH (21:31)
[2018-04-27] MEDS: FINASTERIDE 5 MG TABLET (FP) PO SCH (21:31)
[2018-04-27] MEDS ORDERED: PATIENT'S OWN MEDICATION (NON-FORMULARY) (Simvastatin 10 MG) PO SCH (22:00)
[2018-04-28] MEDS: sitaGLIPtin PHOSPHATE 50 MG TABLET PO SCH (06:52)
[2018-04-28] MEDS: glipiZIDE 5 MG TABLET (FP) PO SCH ×2 (06:52→17:30)
[2018-04-28] MEDS: INSULIN SLIDING SCALE (NOVOLOG) 1 VIAL SQ SCH ×4 (06:52→21:11)
[2018-04-28 08:01] LABS: EOS % 7.2 % (0-4.5); HEMOGLOBIN 14.4 GM/dl (11.7-16.9); LYMPH % 26.5 % (8-40); MCH 28.9 pg (25.7-33.7); MEAN CELL VOLUME 90.4 fl (80-96); MEAN PLT VOLUME 8.9 fl (7.5-11.1); MONO % 10.9 % (3.8-10.2); NEUT % 54.4 % (42.8-82.8); PLATELET COUNT 170 K/MM3 (134-434); RBC 4.98 M/mm3 (4.00-5.60); RDW 13.2 % (11.9-15.9); WHITE BLOOD COUNT 8.4 K/mm3 (4.0-10.8)
[2018-04-28 08:18] LABS: INR 1.17 (0.82-1.09); PROTHROMBIN TIME (PATIENT) 13.1 SEC (10.2-13.0)
--- NOTE | 2018-04-28 08:30 | DS ---
Physical Exam: SUBJECTIVE: Patient seen and examined, The patient reports feeling well, denies any headache chest pain or shortness of breath. Patient sitting up as a recliner wants to go home OBJECTIVE: Patient is a 77-year-old male, with a past medical history of Alzheimer's dementia, hypertension, hyperlipidemia, diabetes mellitus, renal CA (S/P right nephrectomy) gout, spinal stenosis, and right retinal tear. Both And (Irma ) at the Bedside Patient Is a Poor Historian. Reports At 9 AM on this date she noted patient was staring at her and was grunting "yes" to simple questions. reports that episode lasted approximately 30 minutes and patient returned to baseline. Son also reports recent changes in mood with angry outbursts and increased forgetfulness within the past week. Of note patient was recently treated by his primary care physician Dr. Lee for a urinary tract infection and completed a 7 day course of amoxicillin last dose was 03/31/2018. ER course was notable for: (1)CT of head No evidence of acute intracranial pathology (2)EKG normal sinus rhythm (3)B/P 207/83 hr 62 (4) asa 325mg given in ED Vital Signs Period Temp Pulse Resp BP Sys/Gatica Pulse Ox Last 24 Hr 97.7 F-99.0 F 62-80 18-19 130-207/54-83 96-98 PHYSICAL EXAM GENERAL: Awake, alert, and oriented times and place, in no acute distress. HEAD: Normal with no signs of trauma. EYES: Pupils equal, round and reactive to light, extraocular movements intact, sclera anicteric, conjunctiva clear. No lid lag. EARS, NOSE, THROAT: Ears normal, nares patent, oropharynx clear without exudates. Moist mucous membranes. NECK: Normal range of motion, supple without lymphadenopathy, JVD, or masses. LUNGS: Breath sounds equal, clear to auscultation bilaterally. No wheezes, and no crackles. No accessory muscle use. HEART: Regular rate and rhythm, normal S1 and S2 without murmur, rub or gallop. ABDOMEN: Soft, nontender, not distended, normoactive bowel sounds, no guarding, no rebound, no masses. No hepatomegaly or splenomegaly. MUSCULOSKELETAL: Normal range of motion at all joints. No bony deformities or tenderness. No CVA tenderness. UPPER EXTREMITIES: 2+ pulses, warm, well-perfused. No cyanosis. No clubbing. No peripheral edema. LOWER EXTREMITIES: 2+ pulses, warm, well-perfused. No calf tenderness. No peripheral edema. NEUROLOGICAL: Cranial nerves III-XII intact. Normal speech. right eye irregular pupil, (chronic) left eye: perrrla, eomi . PSYCHIATRIC: Cooperative. Good eye contact. Appropriate mood and affect. SKIN: Abrasions to bilateral upper extremities, Warm, dry, normal turgor, no rashes or lesions noted, normal capillary refill. LABS Laboratory Results - last 24 hr 04/27/18 04/27/18 04/27/18 11:31 11:45 11:49 WBC 8.1 RBC 5.06 Hgb 14.7 Hct 46.0 MCV 90.9 MCH 29.1 MCHC 32.0 RDW 13.1 Plt Count 184 MPV 9.6 Absolute Neuts (auto) 4.7 Neutrophils % 59.1 Lymphocytes % 24.3 Monocytes % 9.9 Eosinophils % 5.6 H Basophils % 1.1 PT with INR INR Sodium Potassium Chloride Carbon Dioxide Anion Gap BUN Creatinine Creat Clearance w eGFR POC Glucometer [id number] Random Glucose Calcium Total Bilirubin AST ALT Alkaline Phosphatase Creatine Kinase 38 Troponin I Total Protein Albumin Triglycerides Cholesterol Total LDL Cholesterol HDL Cholesterol Urine Color Urine Appearance Urine pH Ur Specific [place] Urine Protein Urine Glucose (UA) Urine Ketones Urine Blood Urine Nitrite Urine Bilirubin Urine Urobilinogen Ur Leukocyte Esterase Urine RBC Urine WBC Opiates Screen Methadone Screen Barbiturate Screen Phencyclidine Screen Ur Amphetamines Screen MDMA (Ecstasy) Screen Benzodiazepines Screen Cocaine Screen U Marijuana (THC) Screen Blood Type Antibody Screen 04/27/18 04/27/18 04/27/18 11:49 11:49 11:49 WBC RBC Hgb Hct MCV MCH MCHC RDW Plt Count MPV Absolute Neuts (auto) Neutrophils % Lymphocytes % Monocytes % Eosinophils % Basophils % PT with INR 13.0 INR 1.16 Sodium 141 Potassium 3.7 Chloride 105 Carbon Dioxide 31 H Anion Gap 5 L BUN 19 H Creatinine 1.5 H Creat Clearance w eGFR 45.50 POC Glucometer Random Glucose 118 H Calcium 9.0 Total Bilirubin 1.5 H AST 16 ALT 16 Alkaline Phosphatase 62 Creatine Kinase Troponin I Total Protein 6.1 L Albumin 3.9 Triglycerides 84 Cholesterol 148 Total LDL Cholesterol 76 HDL Cholesterol 55 Urine Color Urine Appearance Urine pH Ur Specific [place] Urine Protein Urine Glucose (UA) Urine Ketones Urine Blood Urine Nitrite Urine Bilirubin Urine Urobilinogen Ur Leukocyte Esterase Urine RBC Urine WBC Opiates Screen Methadone Screen Barbiturate Screen Phencyclidine Screen Ur Amphetamines Screen MDMA (Ecstasy) Screen Benzodiazepines Screen Cocaine Screen U Marijuana (THC) Screen Blood Type O POSITIVE Antibody Screen Negative 04/27/18 04/27/18 04/27/18 11:49 11:54 14:27 WBC RBC Hgb Hct MCV MCH MCHC RDW Plt Count MPV Absolute Neuts (auto) Neutrophils % Lymphocytes % Monocytes % Eosinophils % Basophils % PT with INR INR Sodium Potassium Chloride Carbon Dioxide Anion Gap BUN Creatinine Creat Clearance w eGFR POC Glucometer Random Glucose Calcium Total Bilirubin AST ALT Alkaline Phosphatase Creatine Kinase Troponin I < 0.03 Total Protein Albumin Triglycerides Cholesterol Total LDL Cholesterol HDL Cholesterol Urine Color Valarie Urine Appearance Clear Urine pH 7.0 D Ur Specific [place] 1.015 Urine Protein 1+ H Urine Glucose (UA) 3+ H Urine Ketones Negative Urine Blood Negative Urine Nitrite Negative Urine Bilirubin Negative Urine Urobilinogen 0.2 Ur Leukocyte Esterase Negative Urine RBC No Result Required. Urine WBC 0-1 Opiates Screen Methadone Screen Barbiturate Screen Phencyclidine Screen Ur Amphetamines Screen MDMA (Ecstasy) Screen Benzodiazepines Screen Cocaine Screen U Marijuana (THC) Screen Blood Type O POSITIVE Antibody Screen Negative 04/27/18 04/27/18 04/28/18 14:27 15:53 06:44 WBC RBC Hgb Hct MCV MCH MCHC RDW Plt Count MPV Absolute Neuts (auto) Neutrophils % Lymphocytes % Monocytes % Eosinophils % Basophils % PT with INR INR Sodium Potassium Chloride Carbon Dioxide Anion Gap BUN Creatinine Creat Clearance w eGFR POC Glucometer 139 130 Random Glucose Calcium Total Bilirubin AST ALT Alkaline Phosphatase Creatine Kinase Troponin I Total Protein Albumin Triglycerides Cholesterol Total LDL Cholesterol HDL Cholesterol Urine Color Urine Appearance Urine pH Ur Specific [place] Urine Protein Urine Glucose (UA) Urine Ketones Urine Blood Urine Nitrite Urine Bilirubin Urine Urobilinogen Ur Leukocyte Esterase Urine RBC Urine WBC Opiates Screen Negative Methadone Screen Negative Barbiturate Screen Negative Phencyclidine Screen Negative Ur Amphetamines Screen Negative MDMA (Ecstasy) Screen Negative Benzodiazepines Screen Negative Cocaine Screen Negative U Marijuana (THC) Screen Negative Blood Type Antibody Screen 04/28/18 07:10 WBC 8.4 RBC 4.98 Hgb 14.4 Hct 45.0 MCV 90.4 MCH 28.9 MCHC 32.0 RDW 13.2 Plt Count 170 MPV 8.9 Absolute Neuts (auto) 4.6 Neutrophils % 54.4 Lymphocytes % 26.5 Monocytes % 10.9 H Eosinophils % 7.2 H Basophils % 1.0 PT with INR INR Sodium Potassium Chloride Carbon Dioxide Anion Gap BUN Creatinine Creat Clearance w eGFR POC Glucometer Random Glucose Calcium Total Bilirubin AST ALT Alkaline Phosphatase Creatine Kinase Troponin I Total Protein Albumin Triglycerides Cholesterol Total LDL Cholesterol HDL Cholesterol Urine Color Urine Appearance Urine pH Ur Specific [place] Urine Protein Urine Glucose (UA) Urine Ketones Urine Blood Urine Nitrite Urine Bilirubin Urine Urobilinogen Ur Leukocyte Esterase Urine RBC Urine WBC Opiates Screen Methadone Screen Barbiturate Screen Phencyclidine Screen Ur Amphetamines Screen MDMA (Ecstasy) Screen Benzodiazepines Screen Cocaine Screen U Marijuana (THC) Screen Blood Type Antibody Screen IMAGING head ct: No evidence of acute intracranial pathology echo: LV wnl, trace MR carotid doppler: no hemodynamic significant stenosis, moderate Atherosclerotic disease HOSPITAL COURSE: 1) metabolic encephalopathy - Patient is at baseline, As per son and - MRI of brain on March 19, 2018 reviewed chronic cerebellar infarcts, findings consistent with Alzheimer's dementia Discussed with neurologist Dr. Vasques, Patient was started on Aricept 5 mg at night - appreciate neurology input 2) Cardiovascular hypertensive urgency - patient was restarted on home medications blood pressure at goal, -echo noted as above - continue home dose coreg and altace 3) endocrine DM - fingersticks achs with regular insulin sliding scale, continue jardience and glyburide. 4) bph - continue flomax and proscar - no signs of urinary retention noted PLAN - contiue aricept 5mg qhs, strict follow up with neurology within 2 weeks - lengthy conversation with son and , patient and will re-locate to the [facility] assisted living with VNS - discharge plan and instructions discussed with son and , all questions answered and son and both verbalize understanding Date of Admission:04/27/18 Date of Discharge: 04/28/18 Minutes to complete discharge: 35 Discharge Summary Reason For Visit: ALTERED MENTAL STATUS TRASIENT ISCHEMIC ATTACK Current Active Problems Altered mental status, unspecified (Acute) TIA (transient ischemic attack) (Acute) Condition: Stable - Instructions Diet, Activity, Other Instructions: continue aricept daily as prescribed continue all medications as prescribed please follow up with the neurologist, Dr Cannon within 2 weeks please follow up with your primary care physician Dr Lee within 1 week if any new or persistent symptoms develop please return to the emergency department Referrals: Mayur Cannon MD [Staff Physician] - 2 Weeks Joao Lee MD [Primary Care Provider] - 1 Week Disposition: VNS/HOME HEALTH CARE - Home Medications Comprehensive Discharge Medication List: Ambulatory Orders Allopurinol [Zyloprim -] 100 mg PO ASDIR 04/27/18 Aspirin [Dakota Chewable] 81 mg PO HS 04/27/18 Carvedilol [Coreg -] 25 mg PO BID 04/27/18 Duloxetine HCl [Cymbalta -] 30 mg PO BID 04/27/18 Empagliflozin [Jardiance] 25 mg PO DAILY 04/27/18 Finasteride [Proscar] 5 mg PO HS 04/27/18 Glipizide [Glucotrol -] 5 mg PO BID 04/27/18 Ramipril [Altace] 2.5 mg PO HS 04/27/18 Simvastatin [Zocor] 10 mg PO HS 04/27/18 Sitagliptin Phosphate [Januvia] 100 mg PO DAILY 04/27/18 Tamsulosin HCl [Flomax] 0.4 mg PO HS 04/27/18 This patient is new to me today: No Emergency Visit: Yes ED Registration Date: 04/27/18 Care time: The patient presented to the Emergency Department on the above date and was hospitalized for further evaluation of their emergent condition. Critical Care patient: No - Discharge Referral Referred to [facility] Med P.C.: No
[2018-04-28 08:33] LABS: ALBUMIN 3.7 g/dl (3.5-5.0); ALK PHOS 58 U/L (32-92); ANION GAP 7 MMOL/L (8-16); BILIRUBIN,TOTAL 1.3 mg/dl (0.2-1.0); BLOOD UREA NITROGEN 22 mg/dl (7-18); CALCIUM 8.9 mg/dl (8.4-10.2); CHLORIDE 106 mmol/L (98-107); CHOLESTEROL 139 mg/dl; CO2 30 mmol/L (22-28); CREATININE 1.4 mg/dl (0.6-1.3); GLUCOSE,RANDOM 149 mg/dl (74-106); HDL CHOLESTEROL 51 mg/dl (29-89); LDL CHOLESTEROL (ONLY DFH) 73 mg/dl; MAGNESIUM 2.1 mg/dL (1.8-2.4); PHOSPHOROUS 3.4 mg/dl (2.5-4.6); POTASSIUM 3.3 mmol/L (3.5-5.1); SGOT/AST 15 U/L (10-42); SGPT/ALT 14 U/L (10-40); SODIUM 143 mmol/L (136-145); TOT PROT 5.9 g/dl (6.4-8.3); TRIGLYCERIDES 74 mg/dl (35-160)
[2018-04-28 08:35] LABS: CHOLESTEROL 141 mg/dl; HDL CHOLESTEROL 50 mg/dl (29-89); TRIGLYCERIDES 78 mg/dl (35-160)
[2018-04-28] MEDS ORDERED: POTASSIUM CHLORIDE TABS 20 MEQ TABLET.ER (FP) PO ONE (09:15)
[2018-04-28] MEDS: CARVEDILOL 25 MG TABLET (FP) PO SCH ×2 (09:23→21:07)
[2018-04-28] MEDS: DULoxetine HCL 30 MG CAPSULE.DR (FP) PO SCH ×2 (09:23→21:07)
[2018-04-28] MEDS ORDERED: PATIENT'S OWN MEDICATION (NON-FORMULARY) (Empagliflozin [Jardiance] 25 MG) PO SCH (10:00)
[2018-04-28] MEDS ORDERED: ALLOPURINOL 100 MG TABLET (FP) PO SCH (10:00)
--- NOTE | 2018-04-28 10:25 | CONSULT ---
Admitting History and Physical - Primary Care Physician PCP: Gardenia Drake - Admission History of Present Illness: Per emr: 77 year old male history of Dementia, Alzheimer disease, HTN, Hyperlipidemia, DM , Back pain and spinal stenosis. He lives with his in [place] in independent house. He has been having memory difficulty for a while and been diagnosed with Alzheimer disease. Recently their children has been pushing to go to assistance living facility. Patient was not talking enough and today morning he kept saying yes to every question. got worried and brought him to hospital. \ Memory getting worse and have some speech difficulty for few hours and now back to baseline Selected Entries 04/27/18 04/27/18 04/27/18 11:17 12:40 16:30 Supper Temperature 99.0 F 97.7 F 97.7 F 04/27/18 04/27/18 04/28/18 18:00 22:31 06:00 Supper 100% Temperature 98.3 F 98.4 F Laboratory Tests 04/28/18 07:[address] of head No evidence of acute intracranial pathology History Source: Medical Record Limitations to Obtaining History: Clinical Condition, Dementia - Smoking History Smoking history: Unknown if ever smoked Have you smoked in the past 12 months: No Aproximately how many cigarettes per day: 0 If you are a former smoker, when did you quit?: 1989 - Alcohol/Substance Use Hx Alcohol Use: No (UNABLE TO OBTAIN) History - Admission Reason For Visit: ALTERED MENTAL STATUS TRASIENT ISCHEMIC ATTACK - Diagnostics X-ray: Report Reviewed CT Scan: Report Reviewed - General Mental Status: Awake and Alert, Able to Follow Commands, Forgetful, Confused Attention: Intact Ability to Follow Directions: Good Head/Neck Control: WFL - Hearing Hearing: Normal Hearing Aide: No With Patient: No Speech Evaluation - Communication Primary Language: TURKMEN Communication: Yes: Within Normal Limits Oral Expression Ability: Yes: No Impairment - Speech Production Able to Make Needs Known: Yes: WNL Intelligibility: Yes: WNL - Speech Characteristics Voice Loudness: Normal Voice Pitch: Yes: Normal Voice Phonatory-based Quality: Yes: Normal Speech Pattern: Normal Speech Clarity: < 100% Nasal Resonance: Normal Articulation: Yes: Precise Rate of Speech: Intact - Language/Auditory Comprehension Follows: Yes: 1 Stage Simple Commands Observation: Able to respond to yes/no queries: Yes, Yes/No Confusion: No, Comprehends Conversational Speech: Yes - Language/Verbal Expression Able to Respond to Simple Queries: Yes: WNL Able to Communicate Wants and Needs: Yes: WNL Functional Communication Status: Yes: WNL - Swallow Evaluation/Bedside Assessment Current Nutritional Intake: Regular, Thin Liquids Oral Secretions: Yes: WFL Dentition: Yes: Adequate Facial Symmetry at Rest: Symmetrical Facial Symmetry on Retraction: Symmetrical Against Resistance Opening: Normal Against Resistance Closing: Normal Pucker Lips: Normal Smile: Normal Lingual Movement: Normal, Symmetric Lingual Speed of Movement: Normal Lingual Movement Strgth Against Opposition: Normal Lingual Movement Characteristics: Normal Velopharyngeal Movement: Normal Laryngeal Elevation: WFL Laryngeal Movement: Able to Palpate Rate of Intake: WFL Bolus Size: WFL Labial Seal: WFL Chewing: WFL Oral Prep Time: WFL A-P Transit: WFL Pocketing: None Timing of Swallow: WFL Coughing/Throat Clear: No Change in Voice: No Recommendations - Speech Evaluation, Impression/Plan Impression: Verbal, fluent, impaired insight and memory. Swallowing intact. Reported to be back to baseline. - Dysphagia Impressions/Plan Swallowing Skills: WF Dysphagia Impressions: No Impairment *Silent aspiration: cannot be R/O at bedside - Recommendations Diet Consistency: Regular Medication Administration: Whole with water Liquids: Thin Liquids
[2018-04-28] MEDS: MUPIROCIN 2% TOPICAL OINTMENT 22 GM TUBE TP SCH ×2 (11:39→21:57)
--- NOTE | 2018-04-28 11:43 | EKG ---
Test Reason : Blood Pressure : / mmHG Vent. Rate : 063 BPM Atrial Rate : 063 BPM P-R Int : 150 ms QRS Dur : 100 ms QT Int : 404 ms P-R-T Axes : 065 064 073 degrees QTc Int : 413 ms NORMAL SINUS RHYTHM MINIMAL VOLTAGE CRITERIA FOR LVH, MAY BE NORMAL VARIANT BORDERLINE ECG WHEN COMPARED WITH ECG OF 11-NOV-2017 11:32, NO SIGNIFICANT CHANGE WAS FOUND Confirmed by KRISTI HUANG, ANA ([id number]) on 04/28/2018 11:43:24 AM Referred By: LORENZO PAGE Confirmed By:ANA BERRY MD
[2018-04-28] MEDS ORDERED: PT OWN MED DRAWER 7, Y5N ONE (11:45)
[2018-04-28] MEDS: ATORVASTATIN CA 10 MG TABLET (FP) PO SCH (21:07)
[2018-04-28] MEDS: RAMIPRIL 2.5 MG CAPSULE (FP) PO SCH (21:08)
[2018-04-28] MEDS: FINASTERIDE 5 MG TABLET (FP) PO SCH (21:08)
[2018-04-28] MEDS: TAMSULOSIN HCL 0.4 MG CAP.ER.24H (FP) PO SCH (21:08)
[2018-04-28] MEDS: ASPIRIN 81 MG CHEWABLE TABLETS PO SCH (21:09)
[2018-04-28] MEDS ORDERED: BACITRACIN 0.9 GM PACKET ONE (21:37)
[2018-04-28] MEDS ORDERED: DONEPEZIL HCL 5 MG TABLET (FP) PO SCH (22:00)
[2018-04-29] MEDS: glipiZIDE 5 MG TABLET (FP) PO SCH ×2 (06:34→16:39)
[2018-04-29] MEDS: sitaGLIPtin PHOSPHATE 50 MG TABLET PO SCH (06:34)
[2018-04-29] MEDS: INSULIN SLIDING SCALE (NOVOLOG) 1 VIAL SQ SCH ×3 (06:35→16:40)
--- NOTE | 2018-04-29 09:29 | PN ---
Progress Note (short form) - Note Progress Note: patient is pending transfer to [facility] assisted [facility] PPD placed on to right forearm on 04/27/18 right forearm-->omm negative Visit type - Emergency Visit Emergency Visit: Yes ED Registration Date: 04/27/18 Care time: The patient presented to the Emergency Department on the above date and was hospitalized for further evaluation of their emergent condition. - New Patient This patient is new to me today: No - Critical Care Critical Care patient: No - Discharge Referral Referred to [facility] Med P.C.: No
[2018-04-29 10:03] VITALS: BP 143/79; PULSE 75; TEMP 98
[2018-04-29] MEDS ORDERED: PT OWN MED DRAWER 7, Y5N ONE (10:29)
[2018-04-29] MEDS: MUPIROCIN 2% TOPICAL OINTMENT 22 GM TUBE TP SCH (10:33)
[2018-04-29] MEDS: DULoxetine HCL 30 MG CAPSULE.DR (FP) PO SCH (10:33)
[2018-04-29] MEDS: CARVEDILOL 25 MG TABLET (FP) PO SCH (10:33)
== END 2018-04-29 18:08 | disposition home health service (06) ==
LOC: FER 11:17 → FM/S 12:40
PROVIDERS: ADMIT Hospitalist; ATTEND Nurse Practitioner Family
PROC: 3E0337Z Introduction of Electrolytic and Water Balance Substance into Peripheral Vein, Percutaneous Approach (ICD-10-PCS; principal; 2018-04-27)
DX: G45.9 Transient cerebral ischemic attack, unspecified (principal); R41.82 Altered mental status, unspecified; G93.41 Metabolic encephalopathy; G30.9 Alzheimer's disease, unspecified; F02.80 Dementia in other diseases classified elsewhere, unspecified severity, without behavioral disturbance, psychotic disturbance, mood disturbance, and anxiety; I16.0 Hypertensive urgency; E11.9 Type 2 diabetes mellitus without complications; N40.0 Benign prostatic hyperplasia without lower urinary tract symptoms; I10 Essential (primary) hypertension; E78.5 Hyperlipidemia, unspecified; M48.00 Spinal stenosis, site unspecified; Z90.5 Acquired absence of kidney; Z79.82 Long term (current) use of aspirin; Z79.84 Long term (current) use of oral hypoglycemic drugs; Z85.528 Personal history of other malignant neoplasm of kidney
CPT/HCPCS: 36415; 70450-TC; 71045-TC-FY; 80053; 80061; 80307; 81003; 81015; 82140; 82465; 82550; 82607; 82962; 83036; 83718; 83721; 83735; 84100; 84443; 84478; 84484; 85025; 85610; 86140; 86850; 86900; 86901; 87086; 93005; 93306-TC; 93880-TC; 97116-GP; 97161-GP; 99285-25; G0378; J7030

== ENCOUNTER 2018-09-16 13:31 | Inpatient (IN) | payer OTHER, MEDICARE ==
--- NOTE | 2018-09-16 14:35 | PDOC ---
History of Present Illness - General Chief Complaint: Rectal Bleed Stated Complaint: SYNCOPE Time Seen by Provider: 09/16/18 14:22 - History of Present Illness Initial Comments: 09/16/18 15:06 78m from [facility] with pmh of alzheimer's, gout, cva, UTI s/p nephrectomy, IDDM , brought by EMS after becoming briefly dizzy and sliding down some stairs on his buttocks. When he got to the Ed he was found to have a heavy episode of bright red blood diarrhea. Patient states to be asymptomatic at this time. Usually able to ambulate. Took all his morning meds. Not on any blood thinners. Denies chest pain or shortness of breath. Past History - Past Medical History Allergies/Adverse Reactions: Allergies Allergy/AdvReac Type Severity Reaction Status Date / Time No Known Drug Allergies Allergy Verified 09/16/18 18:33 Home Medications: Ambulatory Orders Allopurinol [Zyloprim -] 100 mg PO ASDIR 09/16/18 Amlodipine Besylate 2.5 mg PO DAILY 09/16/18 Aspirin 81 mg PO DAILY 09/16/18 Atorvastatin Ca [Lipitor] 20 mg PO DAILY 09/16/18 Carvedilol [Coreg -] 25 mg PO BID 09/16/18 Donepezil HCl 10 mg PO DAILY 09/16/18 Duloxetine HCl 30 mg PO BID 09/16/18 Empagliflozin [Jardiance] 25 mg PO DAILY 09/16/18 Finasteride 5 mg PO HS 09/16/18 Glipizide 10 mg PO BID 09/16/18 Mupirocin 1 gm TP 09/16/18 Ramipril 2.5 mg PO HS 09/16/18 Sitagliptin Phosphate [Januvia] 100 mg PO DAILY 09/16/18 Tamsulosin HCl 0.4 mg PO HS 09/16/18 Anemia: No Asthma: No Cancer: Yes (RENAL CANCER) Cardiac Disorders: No CVA: No COPD: No CHF: No Dementia: Yes Diabetes: Yes GI Disorders: No Disorders: Yes (H/O RENAL CANCER, S/P RIGHT NEPHRECTOMY) HTN: Yes Hypercholesterolemia: Yes Liver Disease: No Seizures: No Thyroid Disease: No - Surgical History Abdominal Surgery: No Appendectomy: No Cardiac Surgery: No Cholecystectomy: Yes Lung Surgery: Yes (bronchoscopy) Neurologic Surgery: No Orthopedic Surgery: Yes (RADIOFREQUENCY ABLATION) - Suicide/Smoking/Psychosocial Hx Smoking Status: Yes Smoking History: Unknown if ever smoked Have you smoked in the past 12 months: No Number of Cigarettes Smoked Daily: 0 If you are a former smoker, when did you quit?: 1989 Hx Alcohol Use: No (UNABLE TO OBTAIN) Drug/Substance Use Hx: No (UNABLE TO OBTAIN) Substance Use Type: Alcohol Hx Substance Use Treatment: No Abd/GI Specific PMHX - Complaint Specific PMHX GERD: No GI Ulcer Disease: No Review of Systems - Review of Systems Able to Perform ROS?: Yes Is the patient limited Turkmen proficient: No Constitutional: No: Symptoms Reported HEENTM: No: Symptoms Reported Respiratory: No: Symptoms reported Cardiac (ROS): No: Symptoms Reported ABD/GI: Yes: See HPI. No: Symptoms Reported : No: Symptoms Reported Musculoskeletal: No: Symptoms Reported *Physical Exam - Vital Signs Last Vital Signs Temp Pulse Resp BP Pulse Ox 97.3 F L 53 L 16 148/50 L 100 09/16/18 13:35 09/16/18 13:35 09/16/18 13:35 09/16/18 13:35 09/16/18 13:35 - Physical Exam General Appearance: Yes: Thin HEENT: positive: Other (pin point pupil to the left eye, right [place]) Respiratory/Chest: positive: Lungs Clear, Normal Breath Sounds. negative: Chest Tender, Respiratory Distress Cardiovascular: positive: Regular Rhythm, S1, S2, Bradycardia Gastrointestinal/Abdominal: positive: Normal Bowel Sounds, Flat, Soft. negative : Tender Rectal Exam: positive: heme positive stool, other (BRBPR) Extremity: positive: Normal Capillary Refill, Normal Inspection, Normal Range of Motion Integumentary: positive: Normal Color, Dry, Warm Neurologic: positive: Motor Strength 5/5. negative: Fully Oriented Moderate Sedation - Procedure Monitoring Vital Signs: Procedure Monitoring Vital Signs Temperature 97.3 F L 09/16/18 13:35 Pulse Rate 53 L 09/16/18 13:35 Respiratory Rate 16 09/16/18 13:35 Blood Pressure 148/50 L 09/16/18 13:35 O2 Sat by Pulse Oximetry (%) 100 09/16/18 13:35 ED Treatment Course - LABORATORY CBC & Chemistry Diagram: 09/16/18 13:57 09/16/18 13:57 Medical Decision Making - Medical Decision Making 09/16/18 16:10 78m with pmh of dementia presents after fall on stairs and BRBPR diarrhea. All labs wnl, ct head pending. Ct abdomen and pelvis pending. Spoke to Dr. More who will follow up with the patient. Patient is bradycardic, EKG sinus bready. No sign of hypovolemia. 09/16/18 16:56 *DC/Admit/Observation/Transfer Diagnosis at time of Disposition: Rectal bleed, Syncope - Discharge Dispostion Decision to Admit order: Yes - Referrals - Patient Instructions - Post Discharge Activity
[2018-09-16 14:43] LABS: BASO % 0.6 % (0-2.0); EOS % 1.4 % (0-4.5); HEMATOCRIT 40.6 % (35.4-49); HEMOGLOBIN 13.6 GM/dL (11.7-16.9); LYMPH % 18.4 % (8-40); MCH 30.6 pg (25.7-33.7); MCHC 33.6 g/dl (32.0-35.9); MEAN CELL VOLUME 90.9 fl (80-96); MEAN PLT VOLUME 9.4 fl (7.5-11.1); MONO % 7.2 % (3.8-10.2); NEUT % 72.4 % (42.8-82.8); PLATELET COUNT 172 K/MM3 (134-434); RBC 4.47 M/mm3 (4.00-5.60); RDW 13.9 % (11.9-15.9); WHITE BLOOD COUNT 10.6 K/mm3 (4.0-10.0)
[2018-09-16 14:56] LABS: INR 1.15 (0.83-1.09); PROTHROMBIN TIME (PATIENT) 13.6 SEC (9.7-13.0)
[2018-09-16 14:58] LABS: ACTIVATED PTT 27.6 SECONDS (25.2-36.5)
[2018-09-16 15:21] LABS: ALBUMIN 3.7 g/dl (3.4-5.0); ALK PHOS 77 U/L (45-117); ANION GAP 8 MMOL/L (8-16); BILIRUBIN,TOTAL 1.3 mg/dL (0.2-1); BLOOD UREA NITROGEN 25 mg/dL (7-18); CALCIUM 8.7 mg/dL (8.5-10.1); CHLORIDE 106 mmol/L (98-107); CO2 28 mmol/L (21-32); CREATININE 1.4 mg/dL (0.55-1.3); GLUCOSE,RANDOM 171 mg/dL (74-106); POTASSIUM 4.5 mmol/L (3.5-5.1); SGOT/AST 32 U/L (15-37); SGPT/ALT 29 U/L (13-61); SODIUM 142 mmol/L (136-145); TOT PROT 6.1 g/dl (6.4-8.2)
--- NOTE | 2018-09-16 15:36 | EKG ---
Test Reason : Blood Pressure : / mmHG Vent. Rate : 053 BPM Atrial Rate : 053 BPM P-R Int : 142 ms QRS Dur : 100 ms QT Int : 460 ms P-R-T Axes : 119 065 069 degrees QTc Int : 431 ms SINUS BRADYCARDIA OTHERWISE NORMAL ECG WHEN COMPARED WITH ECG OF 27-APR-2018 11:30, NO SIGNIFICANT CHANGE WAS FOUND Confirmed by LORENZO SANTILLAN MD ([id number]) on 09/16/2018 3:35:29 PM Referred By: Confirmed By:LORENZO SANTILLAN MD
[2018-09-16] MEDS ORDERED: PANTOPRAZOLE SODIUM 40 MG VIAL IVPUSH ONE (15:56)
[2018-09-16] MEDS ORDERED: PANTOPRAZOLE SODIUM 40 MG/100 ML BAG IVPB ONE (16:40)
--- NOTE | 2018-09-16 16:45 | PDOC ---
Attending Attestation - Resident Resident Name: Bj Dodge - ED Attending Attestation I have performed the following: I have examined & evaluated the patient, The case was reviewed & discussed with the resident, I agree w/resident's findings & plan - HPI HPI: 09/16/18 16:44 78-year-old male, with a past medical history of Alzheimer's dementia, hypertension, hyperlipidemia, insulin dependent diabetes mellitus, renal CA (S/ P right nephrectomy) gout, spinal stenosis, and right retinal tear presenting with rectal bleeding. He was brought by EMS from [facility] after becoming briefly dizzy and sliding down some stairs on his buttocks. No LOC. subsequently found to have gross blood per rectum. - Physicial Exam PE: 09/16/18 16:44 NAD, well appearing, PERRL, EOMI, MMM, nl conjunctiva, anicteric; neck supple. lungs clear, RRR, abdomen soft nontender. Gross blood per rectum when turned. HOLCOMB x4, No peripheral edema. normal color for ethnicity, WWP. - Medical Decision Making 09/16/18 16:45 See HPI for details Vital signs reviewed, wnl. Prior notes reviewed, including admissions, discharges and consultations. laboratory results and imaging reviewed, basic labs and lytes wnl, notable for normal h/H. Cr at baseline. grossly positive on stool exam, so stool guaiac inaccurate in the chart. txs ordered. coags normal EKG sinus bradycardia, no interval abnormalities, narrow QRS, ST and T wave segments and morphology normal. Nonspecific T wave abnormalities ED course: protonix x1 IVP most likely LGIB/diverticular bleed vs polyp bleed, r/o UGIB vs gastritis vs PUD. CT head_neg for bleed or injury, microvascular and chronic changes noted no abdominal sx. no imaging for now, needs endo/colonoscopy, remains hemodynamically appropriate.. dispo: admit for GIB workup, to medical/hospitalist service. s/o Dr Riojas service 09/16/18 16:48 09/16/18 18:53 Heart Score/ECG Review - ECG Impressions Normal ECG: No Bradycardia: Yes Comment:: 09/16/18 16:47 EKG sinus bradycardia, no interval abnormalities, narrow QRS, ST and T wave segments and morphology normal. Nonspecific T wave abnormalities
--- NOTE | 2018-09-16 17:41 | HP ---
CHIEF COMPLAINT: lower gi bleed PCP: HISTORY OF PRESENT ILLNESS: 78 y/o with pmh of htn, hld on aspirin , diverticulosis came to hospital with lower gi bleed. Pt states that he was going to bathroom when he got dizzy and sat down and fell like he had a bowel movement. PT called ems and in hospital found to have bright red blood per rectum. Pt states this is this first episode. Reports he is constipated and have hard stool and have to force. Denies pain in defication. Denies tower climber diarrhoea, denies tinisus, denies loss of appetite, denies vomiting or blood in vomiting. Reports 25 pound weight loss since april. States never had colonoscopy. Denies alcohol. Reports smoking for 30 years stopped in 1988. Denies pain meds. ER course was notable for: (1)cbc, cmp, Recent Travel: no PAST MEDICAL HISTORY: Acute GI bleed, suspected Lower GI, diverticular bleed high on differential, r/o mass/AVM, low suspicion for Upper GI bleed -Near syncope, likely from above -HTN -HLD -Alzheimer's dementia -NIDDM -Renal Ca s/p right nephrectom -Gout -Spinal stenosis -CVA -RIght retinal tear Social History: as above : Family History: unknown Allergies No Known Drug Allergies Allergy (Verified 04/27/18 11:33) HOME MEDICATIONS: Home Medications Medication Instructions Recorded Allopurinol [Zyloprim -] 100 mg PO ASDIR 09/16/18 Carvedilol [Coreg -] 25 mg PO BID 09/16/18 REVIEW OF SYSTEMS CONSTITUTIONAL: Absent: fever, chills, diaphoresis, generalized weakness, malaise, loss of appetite, weight change HEENT: Absent: rhinorrhea, nasal congestion, throat pain, throat swelling, difficulty swallowing, mouth swelling, ear pain, eye pain, visual changes CARDIOVASCULAR: Absent: chest pain, syncope, palpitations, irregular heart rate, lightheadedness , peripheral edema RESPIRATORY: Absent: cough, shortness of breath, dyspnea with exertion, orthopnea, wheezing, stridor, hemoptysis GASTROINTESTINAL: Absent: abdominal pain, abdominal distension, nausea, vomiting, diarrhea, constipation, melena, hematochezia GENITOURINARY: Absent: dysuria, frequency, urgency, hesitancy, hematuria, flank pain, genital pain MUSCULOSKELETAL: Absent: myalgia, arthralgia, joint swelling, back pain, neck pain SKIN: Absent: rash, itching, pallor HEMATOLOGIC/IMMUNOLOGIC: Absent: easy bleeding, easy bruising, lymphadenopathy, frequent infections ENDOCRINE: Absent: unexplained weight gain, unexplained weight loss, heat intolerance, cold intolerance NEUROLOGIC: Absent: headache, focal weakness or paresthesias, dizziness, unsteady gait, seizure, mental status changes, bladder or bowel incontinence PSYCHIATRIC: Absent: anxiety, depression, suicidal or homicidal ideation, hallucinations. PHYSICAL EXAMINATION Vital Signs - 24 hr 09/16/18 13:35 Temperature 97.3 F L Pulse Rate 53 L Respiratory 16 Rate Blood Pressure 148/50 L O2 Sat by Pulse 100 Oximetry (%) GENERAL: Awake, alert, and fully oriented, in no acute distress. HEAD: Normal with no signs of trauma. EYES: Pupils equal, round and reactive to light, extraocular movements intact, sclera anicteric, conjunctiva clear. No lid lag. EARS, NOSE, THROAT: Ears normal, nares patent, oropharynx clear without exudates. Moist mucous membranes. NECK: Normal range of motion, supple without lymphadenopathy, JVD, or masses. LUNGS: Breath sounds equal, clear to auscultation bilaterally. No wheezes, and no crackles. No accessory muscle use. HEART: Regular rate and rhythm, normal S1 and S2 . ABDOMEN: Soft, nontender, not distended, normoactive bowel sounds, no guarding, no rebound, no masses. Rectal exam no mass palpated. MUSCULOSKELETAL: Normal range of motion at all joints. No bony deformities or tenderness. UPPER EXTREMITIES: 2+ pulses, warm, well-perfused. LOWER EXTREMITIES: 2+ pulses, warm, well-perfused. No calf tenderness. PSYCHIATRIC: Cooperative. Good eye contact. SKIN: Warm, dry, normal Laboratory Results - last 24 hr 09/16/18 09/16/18 09/16/18 13:57 13:57 13:57 WBC 10.6 H RBC 4.47 Hgb 13.6 Hct 40.6 MCV 90.9 MCH 30.6 MCHC 33.6 RDW 13.9 Plt Count 172 MPV 9.4 Absolute Neuts (auto) 7.7 Neutrophils % 72.4 Lymphocytes % 18.4 Monocytes % 7.2 Eosinophils % 1.4 Basophils % 0.6 Nucleated RBC % 0 PT with INR 13.60 H INR 1.15 H PTT (Actin FS) 27.6 Sodium Potassium Chloride Carbon Dioxide Anion Gap BUN Creatinine Creat Clearance w eGFR Random Glucose Calcium Total Bilirubin AST ALT Alkaline Phosphatase Total Protein Albumin Stool Occult Blood Negative Blood Type Antibody Screen 09/16/18 09/16/18 13:57 13:57 WBC RBC Hgb Hct MCV MCH MCHC RDW Plt Count MPV Absolute Neuts (auto) Neutrophils % Lymphocytes % Monocytes % Eosinophils % Basophils % Nucleated RBC % PT with INR INR PTT (Actin FS) Sodium 142 Potassium 4.5 Chloride 106 Carbon Dioxide 28 Anion Gap 8 BUN 25 H Creatinine 1.4 H Creat Clearance w eGFR 49.14 Random Glucose 171 H Calcium 8.7 Total Bilirubin 1.3 H AST 32 ALT 29 Alkaline Phosphatase 77 Total Protein 6.1 L Albumin 3.7 Stool Occult Blood Blood Type O POSITIVE Antibody Screen Negative ASSESSMENT/PLAN: 78 yom with Alzheimer's dementia, hypertension, hyperlipidemia, diabetes mellitus, renal CA (S/P right nephrectomy) gout, spinal stenosis, and right retinal tear. CVA admitted with near syncope and GI bleed -Acute GI bleed, suspected Lower GI, diverticular bleed high on differential, r/ o mass/AVM, low suspicion for Upper GI bleed two IV canula no 18. hb monitoring q6h protonix 40 bid IV fluid gi consult CT abdomen -Near syncope, likely from above -HTN hold it for today -HLD on meds hold today - Alzheimer's dementia - NIDDM BGM insulin sliding scale -Renal Ca s/p right nephrectom -Gout on allopurinol hold for today -h/o CVA on aspirin. but hold for now fluid: 1/2 ns 75ml/hr electrolyte:repeat in am nutrition; npo dvt peo; scd gi pro: protonix bid dispo: tele. pt full code Visit type - Emergency Visit Emergency Visit: Yes ED Registration Date: 09/16/18 Care time: The patient presented to the Emergency Department on the above date and was hospitalized for further evaluation of their emergent condition. - New Patient This patient is new to me today: Yes Date on this admission: 09/22/18 - Critical Care Critical Care patient: Yes Total Critical Care Time (in minutes): 45 Critical Care Statement: The care of this patient involved high complexity decision making to prevent further life threatening deterioration of the patient 's condition and/or to evaluate & treat vital organ system(s) failure or risk of failure.
--- NOTE | 2018-09-16 17:41 | PN ---
Teaching Attending Note Name of Resident: Alessandro Quintana ATTENDING PHYSICIAN STATEMENT I saw and evaluated the patient. I reviewed the resident's note and discussed the case with the resident. I agree with the resident's findings and plan as documented with exceptions below. SUBJECTIVE: 78 yom with PMHx of Alzheimer's dementia, hypertension, hyperlipidemia, diabetes mellitus, renal CA (S/P right nephrectomy) gout, spinal stenosis, and right retinal tear, CVA, [facility] resident, was on his way to the bathroom when felt dizzy, about to pass out, supported himself to the wall and supported himself on the floor, sat on his buttocks, at which moment felt had soiled his diaper. Patient felt weak and unable to get when called for help. Noted recurrent dizziness on trying to get up, was brought to the ED. While in ED patient was noted with diaper filled stool mixed with blood with clots. Patient with dementia, though able to provide some details,denies similar prior history, changes in bowels, having to strain at stools, though occasionally with hard stools. No recent EGD/colonoscopy or prior GI bleed history. Unsure when last colonoscopy was done. Denies any family hx of colon/GI malignancy. Take ASA 81 mg daily but no recent ETOH/NSAID use. Patient denies current dizziness, abdominal pain, nausea, vomiting, fevers, chills, diarrhea, recent sick contacts, antibiotics, chest pain, palpitations, dyspnea. 12 point ROS done, limited but except above, also positive for recent unintentional weight loss. OBJECTIVE: Vital Signs Period Temp Pulse Resp BP Sys/Gatica Pulse Ox Last 24 Hr 97.3 F 53-57 12-16 148-162/50-71 99-100 Intake & Output 09/13/18 09/14/18 09/15/18 09/16/18 23:59 23:59 23:59 23:59 Weight 194 lb GENERAL: Awake, alert, oriented to person, place, knows is 2019 but thought was Nov, in no acute distress. HEAD: Normal with no signs of trauma. EYES: Pupils equal, round and reactive to light, extraocular movements intact, sclera anicteric, conjunctiva clear. No lid lag. EARS, NOSE, THROAT: Ears normal, nares patent, oropharynx clear without exudates. Moist mucous membranes. NECK: Normal range of motion, soft, supple, no JVD noted LUNGS: Breath sounds equal, clear to auscultation bilaterally. No wheezes, and no crackles. No accessory muscle use. HEART: Regular rate and rhythm, normal S1 and S2 ABDOMEN: Soft, nontender, not distended, normoactive bowel sounds, no guarding, no rebound, no masses. No hepatomegaly or splenomegaly. superficial RLQ nodularity, no palpation, voluntary or involuntary guarding or rigidity noted RECTAL: diaper filled with stool mixed with blood with clots MUSCULOSKELETAL: Normal range of motion at all joints. No bony deformities or tenderness. No CVA tenderness. UPPER EXTREMITIES: 2+ pulses, warm, well-perfused. No cyanosis. No clubbing. No peripheral edema. LOWER EXTREMITIES: 2+ pulses, warm, well-perfused. No calf tenderness. No peripheral edema. NEUROLOGICAL: AAO, oriented as above, power 5/5, facial symmetry, no gross focal deficits noted PSYCHIATRIC: Cooperative. Good eye contact. Appropriate mood and affect. SKIN: Warm, dry, normal turgor, no rashes or lesions noted, normal capillary refill. Home Medications Medication Instructions Recorded Allopurinol [Zyloprim -] 100 mg PO ASDIR 09/16/18 Amlodipine Besylate 2.5 mg PO DAILY 09/16/18 Aspirin 81 mg PO DAILY 09/16/18 Atorvastatin Ca [Lipitor] 20 mg PO DAILY 09/16/18 Carvedilol [Coreg -] 25 mg PO BID 09/16/18 Donepezil HCl 10 mg PO DAILY 09/16/18 Duloxetine HCl 30 mg PO BID 09/16/18 Empagliflozin [Jardiance] 25 mg PO DAILY 09/16/18 Glipizide 10 mg PO BID 09/16/18 Ramipril 2.5 mg PO HS 09/16/18 Sitagliptin Phosphate [Januvia] 100 mg PO DAILY 09/16/18 Tamsulosin HCl 0.4 mg PO HS 09/16/18 Active Medications Sodium Chloride (1/2 Normal Saline) 1,000 mls @ 75 mls/hr IV ASDIR ELEAZAR Pantoprazole Sodium (Protonix Iv) 40 mg IVPUSH BID ELEAZAR Laboratory Results - last 24 hr 09/16/18 09/16/18 09/16/18 13:57 13:57 13:57 WBC 10.6 H RBC 4.47 Hgb 13.6 Hct 40.6 MCV 90.9 MCH 30.6 MCHC 33.6 RDW 13.9 Plt Count 172 MPV 9.4 Absolute Neuts (auto) 7.7 Neutrophils % 72.4 Lymphocytes % 18.4 Monocytes % 7.2 Eosinophils % 1.4 Basophils % 0.6 Nucleated RBC % 0 PT with INR 13.60 H INR 1.15 H PTT (Actin FS) 27.6 Sodium Potassium Chloride Carbon Dioxide Anion Gap BUN Creatinine Creat Clearance w eGFR Random Glucose Calcium Total Bilirubin AST ALT Alkaline Phosphatase Total Protein Albumin Urine Color Urine Appearance Urine pH Ur Specific [place] Urine Protein Urine Glucose (UA) Urine Ketones Urine Blood Urine Nitrite Urine Bilirubin Urine Urobilinogen Ur Leukocyte Esterase Stool Occult Blood Negative Blood Type Antibody Screen 09/16/18 09/16/18 09/16/18 13:57 13:57 17:20 WBC RBC Hgb Hct MCV MCH MCHC RDW Plt Count MPV Absolute Neuts (auto) Neutrophils % Lymphocytes % Monocytes % Eosinophils % Basophils % Nucleated RBC % PT with INR INR PTT (Actin FS) Sodium 142 Potassium 4.5 Chloride 106 Carbon Dioxide 28 Anion Gap 8 BUN 25 H Creatinine 1.4 H Creat Clearance w eGFR 49.14 Random Glucose 171 H Calcium 8.7 Total Bilirubin 1.3 H AST 32 ALT 29 Alkaline Phosphatase 77 Total Protein 6.1 L Albumin 3.7 Urine Color Ltyellow Urine Appearance Clear Urine pH 6.0 Ur Specific [place] 1.020 Urine Protein Negative Urine Glucose (UA) 3+ H Urine Ketones Trace H Urine Blood 1+ H Urine Nitrite Negative Urine Bilirubin Negative Urine Urobilinogen Negative Ur Leukocyte Esterase Negative Stool Occult Blood Blood Type O POSITIVE Antibody Screen Negative EKG Sinus bradycardia, ASSESSMENT AND PLAN: 78 yom with Alzheimer's dementia, hypertension, hyperlipidemia, diabetes mellitus, renal CA (S/P right nephrectomy) gout, spinal stenosis, and right retinal tear. CVA admitted with near syncope and GI bleed -Acute GI bleed, suspected Lower GI, diverticular bleed high on differential, r/ o mass/AVM, low suspicion for Upper GI bleed -Near syncope, likely from above -HTN -HLD -Alzheimer's dementia -NIDDM -Renal Ca s/p right nephrectom -Gout -Spinal stenosis -CVA -RIght retinal tear Plan: 2 large bore IVs, Protonix IV, NPO, IVF. GI consulted, case discussed with Dr. More by ED, follow up for additional recs, anticipate colonoscopy H/h q6h, CT A/P, CT head ordered by ED, though no head trauma and patient able to recall full event sitting on floor on his buttocks supporting himself to the wall. Hold anti-hypertensives for tonight. ISS, hold oral hypoglycemics. Hold ASA Continue statin/donepezil. DVTPPX SCDs Admit to telemetry. Code status: Full code Dispo will need PT eval and CM consult once medical issues improve. Plan discussed with patient and daughter at bedside in ED. Care co-ordinated with ED Total admit time spent 65 min.
[2018-09-16 17:44] LABS: URINE APPEARANCE CLEAR; URINE BILIRUBIN NEGATIVE (<2.0 mg/dL); URINE COLOR LTYELLOW; URINE GLUCOSE (UA) 3+ (NEGATIVE); URINE KETONE TRACE (NEGATIVE); URINE LEUK ESTERASE NEGATIVE (NEGATIVE); URINE NITRITE NEGATIVE (NEGATIVE); URINE PROTEIN NEGATIVE (NEGATIVE); URINE UROBILINOGEN NEGATIVE mg/dL (0.2-1.0)
[2018-09-16] MEDS ORDERED: SODIUM CHLORIDE 0.45% 1,000 ML IV SCH (17:45)
[2018-09-16 18:06] LABS: EPI CELLS RARE /HPF (FEW)
[2018-09-16] MEDS ORDERED: oxyCODONE HCL 5 MG TABLET PO ONE (18:25)
--- NOTE | 2018-09-16 19:16 | CON.GI ---
Consult Consult Specialty:: covering for Dr Bradshaw - History of Present Illness History of Present Illness: 78m from [facility] with pmh of alzheimer's, gout, cva, UTI s/p nephrectomy, IDDM , brought by EMS after having a xyncopal episode associated with bradycardia In the emergency room he was noted to have bloody diarrhea. Patient was seen in the ER, HR was 65 but is on Beta suzie. He denies abdominal pain,nausea and vomiting. There were no recent colonosccopy done. In the Er he was noted to be passing out blood clots - Alcohol/Substance Use Hx Alcohol Use: No (UNABLE TO OBTAIN) - Smoking History Smoking history: Unknown if ever smoked Have you smoked in the past 12 months: No Aproximately how many cigarettes per day: 0 If you are a former smoker, when did you quit?: 1989 Home Medications - Allergies Allergies/Adverse Reactions: Allergies Allergy/AdvReac Type Severity Reaction Status Date / Time No Known Drug Allergies Allergy Verified 09/16/18 18:33 - Home Medications Home Medications: Ambulatory Orders Allopurinol [Zyloprim -] 100 mg PO ASDIR 09/16/18 Amlodipine Besylate 2.5 mg PO DAILY 09/16/18 Aspirin 81 mg PO DAILY 09/16/18 Atorvastatin Ca [Lipitor] 20 mg PO DAILY 09/16/18 Carvedilol [Coreg -] 25 mg PO BID 09/16/18 Donepezil HCl 10 mg PO DAILY 09/16/18 Duloxetine HCl 30 mg PO BID 09/16/18 Empagliflozin [Jardiance] 25 mg PO DAILY 09/16/18 Finasteride 5 mg PO HS 09/16/18 Glipizide 10 mg PO BID 09/16/18 Mupirocin 1 gm TP 09/16/18 Ramipril 2.5 mg PO HS 09/16/18 Sitagliptin Phosphate [Januvia] 100 mg PO DAILY 09/16/18 Tamsulosin HCl 0.4 mg PO HS 09/16/18 Review of Systems - Review of Systems Constitutional: denies: Fever, Night Sweats HENT: denies: Difficult Swallowing Neck: denies: Decreased ROM Cardiovascular: denies: Chest Pain Respiratory: denies: Cough, Wheezing Gastrointestinal: reports: Rectal Bleeding. denies: Abdominal Pain, Bloating, Diarrhea, Nausea Physical Exam-GI Vital Signs: Vital Signs Temperature 97.3 F L 09/16/18 13:35 Pulse Rate 57 L 09/16/18 18:34 Respiratory Rate 14 09/16/18 18:34 Blood Pressure 142/82 09/16/18 18:34 O2 Sat by Pulse Oximetry (%) 99 09/16/18 18:34 Constitutional: Yes: Well Nourished Eyes: Yes: Conjunctiva Clear HENT: Yes: Atraumatic Neck: Yes: Supple Cardiovascular: Yes: Regular Rate and Rhythm Respiratory: Yes: CTA Bilaterally ...Palpate: Yes: Soft, Tenderness. No: Guarding, Hepatomegaly, Mass, Pulsatile Mass, Splenomegaly Labs: CBC, BMP 09/16/18 13:57 09/16/18 13:57 INR, PTT INR 1.15 (0.83-1.09) H 09/16/18 13:57 Problem List - Problems (1) Rectal bleed Assessment/Plan: MOST LIKELY DIVERTICULAR BLEEDING r> TRANSFUSE [address] ANGIO TRANSFUSE 1 UNIT OF prbc CONSULT INTERVENTIONAL RADIOLOGY Code(s): K62.5 - HEMORRHAGE OF ANUS AND RECTUM
[2018-09-16] MEDS: INSULIN SLIDING SCALE (NOVOLOG) 1 VIAL SQ SCH (20:12)
[2018-09-16 20:27] LABS: HEMATOCRIT 36.6 % (35.4-49); HEMOGLOBIN 12.4 GM/dL (11.7-16.9); MCH 31.1 pg (25.7-33.7); MCHC 33.9 g/dl (32.0-35.9); MEAN CELL VOLUME 91.5 fl (80-96); MEAN PLT VOLUME 9.6 fl (7.5-11.1); PLATELET COUNT 188 K/MM3 (134-434); WHITE BLOOD COUNT 13.6 K/mm3 (4.0-10.0)
--- NOTE | 2018-09-16 20:36 | PDOC ---
*Physical Exam - Vital Signs Last Vital Signs Temp Pulse Resp BP Pulse Ox 97.3 F L 80 19 160/90 99 09/16/18 13:35 09/16/18 20:33 09/16/18 20:33 09/16/18 20:33 09/16/18 20:33 ED Treatment Course - LABORATORY CBC & Chemistry Diagram: 09/16/18 20:10 09/16/18 13:57 - ADDITIONAL ORDERS Additional order review: Laboratory Results 09/16/18 09/16/18 09/16/18 17:20 13:57 13:57 PT with INR INR PTT (Actin FS) Sodium 142 Potassium 4.5 Chloride 106 Carbon Dioxide 28 Anion Gap 8 BUN 25 H Creatinine 1.4 H Creat Clearance w eGFR 49.14 Random Glucose 171 H Calcium 8.7 Total Bilirubin 1.3 H AST 32 ALT 29 Alkaline Phosphatase 77 Total Protein 6.1 L Albumin 3.7 Urine Color Ltyellow Urine Appearance Clear Urine pH 6.0 Ur Specific [place] 1.020 Urine Protein Negative Urine Glucose (UA) 3+ H Urine Ketones Trace H Urine Blood 1+ H Urine Nitrite Negative Urine Bilirubin Negative Urine Urobilinogen Negative Ur Leukocyte Esterase Negative Urine WBC (Auto) 1 Urine RBC (Auto) 3 Ur Epithelial Cells Rare Stool Occult Blood Blood Type O POSITIVE Antibody Screen Negative Crossmatch See Detail 09/16/18 09/16/18 13:57 13:57 PT with INR 13.60 H INR 1.15 H PTT (Actin FS) 27.6 Sodium Potassium Chloride Carbon Dioxide Anion Gap BUN Creatinine Creat Clearance w eGFR Random Glucose Calcium Total Bilirubin AST ALT Alkaline Phosphatase Total Protein Albumin Urine Color Urine Appearance Urine pH Ur Specific [place] Urine Protein Urine Glucose (UA) Urine Ketones Urine Blood Urine Nitrite Urine Bilirubin Urine Urobilinogen Ur Leukocyte Esterase Urine WBC (Auto) Urine RBC (Auto) Ur Epithelial Cells Stool Occult Blood Negative Blood Type Antibody Screen Crossmatch 09/16/18 13:57 RBC 4.47 MCV 90.9 MCHC 33.6 RDW 13.9 MPV 9.4 Neutrophils % 72.4 Lymphocytes % 18.4 Monocytes % 7.2 Eosinophils % 1.4 Basophils % 0.6 - RADIOLOGY Radiology Studies Ordered: Category Date Time Status ABDOMEN & PELVIS CT W/O CONTR [CT] Stat CT Scan 09/16/18 16:[address] WITHOUT CONTRAST [CT] Stat CT Scan 09/16/18 15:08 Completed - Medications Given in the ED: ED Medications Discontinued Medications Generic Name Dose Route Start Last Admin Trade Name Freq PRN Reason Stop Dose Admin Pantoprazole Sodium 40 mg 09/16/18 15:56 09/16/18 16:43 Protonix Iv IVPUSH 09/16/18 15:57 40 mg ONCE ONE Administration Medical Decision Making - Medical Decision Making 09/16/18 20:[address] More who suspects diverticular bleed. Patient admitted to ICU. Will get CTA abd/pel to r/o active bleed and ordering blood transfusion of 2 units rbc. *DC/Admit/Observation/Transfer Diagnosis at time of Disposition: Rectal bleed, Syncope - Referrals - Patient Instructions - Post Discharge Activity
--- NOTE | 2018-09-16 20:41 | CONSULT ---
Consult Consult Specialty:: ICU Referred by:: Dr. More Reason for Consultation:: Lower GI Bleed. - History of Present Illness Chief Complaint: Bright Red Blood per Rectum History of Present Illness: 78 yo M resident of [facility] with PMhx of Alzheimer's,diverticuli, HTN, HLD, TIA, and renal cancer s/p nephrectomy presents to ER via EMS after being found on floor of bathroom at [place]. He states that this morning when he went to bathroom he experienced a near syncopal episode in which he slid to floor. He did not loose consciousness or hit his head.When the staff found him they noticed that he had soaked his daiper with blood. He was immediately transported to ER where he experience multiple( approx. 5 ) bouts of BRBPR and clots. . He was ordered one unit of PRBC and was seen by GI who recommended CTA to r/o active diverticular bleed and ICU admission. He does not recall his last colonoscopy. He does take an 81mg ASA daily. Denies CP, MCFADDEN, SOB,abdominal pain, nausea or vomiting. - History Source History Provided By: Patient, Family Member Limitations to Obtaining History: No Limitations - Past Medical History [employer]: Yes: Alzheimer's, TIA Cardio/Vascular: Yes: HTN, Hyperlipdemia Renal/: Yes: BPH, Cancer (S/P nephrectomy. ) Rheumatology: Yes: Gout Endocrine: Yes: Diabetes Mellitus (non-insulin dependent. 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 Place of : [facility] History of Recent Travel: No Home Medications - Allergies Allergies/Adverse Reactions: Allergies Allergy/AdvReac Type Severity Reaction Status Date / Time No Known Drug Allergies Allergy Verified 09/16/18 18:33 - Home Medications Home Medications: Ambulatory Orders Allopurinol [Zyloprim -] 100 mg PO ASDIR 09/16/18 Amlodipine Besylate 2.5 mg PO DAILY 09/16/18 Aspirin 81 mg PO DAILY 09/16/18 Atorvastatin Ca [Lipitor] 20 mg PO DAILY 09/16/18 Carvedilol [Coreg -] 25 mg PO BID 09/16/18 Donepezil HCl 10 mg PO DAILY 09/16/18 Duloxetine HCl 30 mg PO BID 09/16/18 Empagliflozin [Jardiance] 25 mg PO DAILY 09/16/18 Finasteride 5 mg PO HS 09/16/18 Glipizide 10 mg PO BID 09/16/18 Mupirocin 1 gm TP 09/16/18 Ramipril 2.5 mg PO HS 09/16/18 Sitagliptin Phosphate [Januvia] 100 mg PO DAILY 09/16/18 Tamsulosin HCl 0.4 mg PO HS 09/16/18 Family Disease History - Family Disease History Family History: Unremarkable Review of Systems - Review of Systems Constitutional: reports: No Symptoms Cardiovascular: denies: Chest Pain, Edema, Palpitations, Shortness of Breath Respiratory: reports: No Symptoms Gastrointestinal: reports: Rectal Bleeding Genitourinary: reports: No Symptoms Musculoskeletal: reports: No Symptoms Integumentary: reports: No Symptoms Neurological: reports: No Symptoms Endocrine: reports: No Symptoms Psychiatric: reports: No Symptoms Physical Exam Vital Signs: Vital Signs Temperature 97.3 F L 09/16/18 13:35 Pulse Rate 80 09/16/18 20:33 Respiratory Rate 19 09/16/18 20:33 Blood Pressure 160/90 09/16/18 20:33 O2 Sat by Pulse Oximetry (%) 99 09/16/18 20:33 Constitutional: Yes: No Distress, Calm, Pallor Eyes: Yes: Conjunctiva Clear, EOM Intact, Other (right pupil deformity and non- reactive to light.) HENT: Yes: Atraumatic, Normocephalic Neck: Yes: Supple Cardiovascular: Yes: Tachycardia, S1, S2. No: JVD, Gallop, Murmur Respiratory: Yes: Regular, CTA Bilaterally. No: Accessory Muscle Use, Rales, Rhonchi Gastrointestinal: Yes: Normal Bowel Sounds, Soft, Rectal Bleeding ...Rectal Exam: Yes: Guaiac Positive Renal/: Yes: WNL Musculoskeletal: Yes: WNL Extremities: Yes: WNL Edema: No Integumentary: Yes: Skin Tear (left forearm) Neurological: Yes: Alert, Oriented, Cran Nerves II-XII Intact ...Motor Strength: WNL Psychiatric: Yes: Alert, Oriented Labs: CBC, BMP 09/16/18 20:10 09/16/18 13:57 Imaging - Results Cat Scan: Pending Problem List - Problems (1) Rectal bleed (2) Syncope (3) DM type 2 (diabetes mellitus, type 2) (4) H/O malignant neoplasm of kidney (5) TIA (transient ischemic attack) (6) Gout (7) BPH (benign prostatic hyperplasia) (8) Alzheimer disease (9) HTN (hypertension) (10) HLD (hyperlipidemia) Assessment/Plan A:78 yo M resident of [facility] with PMhx of Alzheimer's, HTN, HLD, TIA, and renal cancer s/p nephrectomy admitted to ICU for Lower GI Bleed. P: NEURO: * awake and alert * H/O Alzhemier-continue Donepzil and Duloxitine * monitor for signs of change in MS. PULM: * No active pulmonary issues * supplemental O2 PRN * maintain SpO2> 90% CV: * H/O of HTN/TIA- antihypertensives on hold for GI bleed. * ASA held for bleeding. * h/o HLD- continue lipitor HS. GI: * Possible Lower GI Diverticular bleed. * CTA pending - if active bleed will consult IR for possible intervention. * GI consult appreciated (Dr. More) * 2 units PRBC's ordered * repeat CBC * PPI. : * h/o of BPH- will continue Finesteride. RENAL: * s/p nephrectomy * receiving IV hydration to avoid YOLI. ENDO: * NIDDM * hold all oral hyperglycemic meds * ADA diet once eating. * ISS Q6H while NPO then ACHS * BGM Q6H while NPO then ACHS. RHEUM: * H/O GOUT- allopurinol held. FEN: * 1/2 NS @ 75 ml/hr * will monitor e-lytes and replete PRN * NPO for now - ADA diet once able to eat. PPx: * DVT- held for bleeding. * GI- PPI DISPO: Will continue to monitor in ICU. FULL CODE>
[2018-09-16] MEDS: FINASTERIDE 5 MG TABLET (FP) PO SCH (22:00)
[2018-09-16] MEDS: ATORVASTATIN CA 20 MG TABLET (FP) PO SCH (22:00)
[2018-09-16] MEDS: DULoxetine HCL 30 MG CAPSULE.DR (FP) PO SCH (22:00)
[2018-09-16] MEDS: PANTOPRAZOLE SODIUM 40 MG VIAL IVPUSH SCH (22:00)
[2018-09-16] MEDS ORDERED: DOPAMINE 400 MG/D5W - 400,000 MCG/250 ML INFUS.BAG IVPB ONE (22:58)
[2018-09-17] MEDS ORDERED: SODIUM CHLORIDE 1,000 ML IV STA (00:01)
[2018-09-17 01:42] LABS: HEMATOCRIT 33.3 % (35.4-49); HEMOGLOBIN 11.1 GM/dL (11.7-16.9); MCH 30.9 pg (25.7-33.7); MCHC 33.4 g/dl (32.0-35.9); MEAN CELL VOLUME 92.5 fl (80-96); MEAN PLT VOLUME 9.4 fl (7.5-11.1); PLATELET COUNT 197 K/MM3 (134-434); RDW 13.8 % (11.9-15.9); WHITE BLOOD COUNT 15.8 K/mm3 (4.0-10.0)
[2018-09-17 06:42] LABS: ALBUMIN 2.9 g/dl (3.4-5.0); ALK PHOS 66 U/L (45-117); ANION GAP 10 MMOL/L (8-16); BLOOD UREA NITROGEN 31 mg/dL (7-18); CALCIUM 7.8 mg/dL (8.5-10.1); CHLORIDE 107 mmol/L (98-107); CO2 24 mmol/L (21-32); CREATININE 1.4 mg/dL (0.55-1.3); GLUCOSE,RANDOM 174 mg/dL (74-106); MAGNESIUM 2.5 mg/dL (1.8-2.4); PHOSPHOROUS 5.3 mg/dL (2.5-4.9); POTASSIUM 3.9 mmol/L (3.5-5.1); SGOT/AST 12 U/L (15-37); SGPT/ALT 18 U/L (13-61); SODIUM 141 mmol/L (136-145); TOT PROT 4.8 g/dl (6.4-8.2)
[2018-09-17 06:59] LABS: HEMOGLOBIN 10.1 GM/dL (11.7-16.9); MCH 30.8 pg (25.7-33.7); MCHC 33.6 g/dl (32.0-35.9); MEAN CELL VOLUME 91.7 fl (80-96); PLATELET COUNT 180 K/MM3 (134-434); RBC 3.28 M/mm3 (4.00-5.60); RDW 13.9 % (11.9-15.9)
[2018-09-17 07:17] LABS: INR 1.16 (0.83-1.09); PROTHROMBIN TIME (PATIENT) 13.7 SEC (9.7-13.0)
[2018-09-17] MEDS: INSULIN SLIDING SCALE (NOVOLOG) 1 VIAL SQ SCH ×4 (07:22→17:25)
[2018-09-17] MEDS: SODIUM CHLORIDE 1,000 ML IV SCH (07:23)
--- NOTE | 2018-09-17 09:00 | PN ---
Physical Exam: SUBJECTIVE: Patient seen and examined this AM. A&Ox3 however mentions he was living in [place] before coming to [facility] and presently lived with his step mother and father. Patient does not recall any BMs since procedure. Denies any fevers, chills, chest pain, SOB, nausea, vomiting, diarrhea, constipation. OBJECTIVE: Vital Signs Period Temp Pulse Resp BP Sys/Gatica Pulse Ox Last 24 Hr 97.3 F-98.7 F 53-90 12-25 122-162/50-90 99-100 GENERAL: A&Ox3, NAD HEAD: NCAT EYES: PERRL, EOMI ENT: Dry mucous membranes NECK: Supple LUNGS: Diminished breath sounds at the bases, no wheezes, no crackles HEART: Regular rate and rhythm, S1, S2 without murmur ABDOMEN: Soft, nontender, nondistended, + bowel sounds, no guarding. EXTREMITIES: No edema. RLE procedure wound covered with dressing, C/D/I, No surrounding erythema, No active drainage NEUROLOGICAL: Cranial nerves II through XII grossly intact. Confused speech. Gross sensation intact throughout. 5/5 muscle strength throughout. SKIN: Warm, dry. Scabbed and healing wounds over all extremities (Patient says are from mosquito bites) Laboratory Last Values WBC 14.0 K/mm3 (4.0-10.0) H 09/17/18 06:45 RBC 3.28 M/mm3 (4.00-5.60) L 09/17/18 06:45 Hgb 10.1 GM/dL (11.7-16.9) L 09/17/18 06:45 Hct 30.0 % (35.4-49) L 09/17/18 06:45 MCV 91.7 fl (80-96) 09/17/18 06:45 MCH 30.8 pg (25.7-33.7) 09/17/18 06:45 MCHC 33.6 g/dl (32.0-35.9) 09/17/18 06:45 RDW 13.9 % (11.9-15.9) 09/17/18 06:45 Plt Count 180 K/MM3 (134-434) 09/17/18 06:45 MPV 10.0 fl (7.5-11.1) 09/17/18 06:45 Absolute Neuts (auto) 7.7 K/mm3 (1.5-8.0) 09/16/18 13:57 Neutrophils % 72.4 % (42.8-82.8) 09/16/18 13:57 Lymphocytes % 18.4 % (8-40) 09/16/18 13:57 Monocytes % 7.2 % (3.8-10.2) 09/16/18 13:57 Eosinophils % 1.4 % (0-4.5) 09/16/18 13:57 Basophils % 0.6 % (0-2.0) 09/16/18 13:57 Nucleated RBC % 0 % (0-0) 09/16/18 13:57 PT with INR 13.70 SEC (9.7-13.0) H 09/17/18 05:30 INR 1.16 (0.83-1.09) H 09/17/18 05:30 PTT (Actin FS) 27.6 SECONDS (25.2-36.5) 09/16/18 13:57 Sodium 141 mmol/L (136-145) 09/17/18 05:30 Potassium 3.9 mmol/L (3.5-5.1) 09/17/18 05:30 Chloride 107 mmol/L (98-107) 09/17/18 05:30 Carbon Dioxide 24 mmol/L (21-32) 09/17/18 05:30 Anion Gap 10 MMOL/L (8-16) 09/17/18 05:30 BUN 31 mg/dL (7-18) H 09/17/18 05:30 Creatinine 1.4 mg/dL (0.55-1.3) H 09/17/18 05:30 Creat Clearance w eGFR 49.14 (>60) 09/17/18 05:30 POC Glucometer 171 UNITS (80-120) 09/17/18 06:32 Random Glucose 174 mg/dL (74-106) H 09/17/18 05:30 Calcium 7.8 mg/dL (8.5-10.1) L 09/17/18 05:30 Phosphorus 5.3 mg/dL (2.5-4.9) H 09/17/18 05:30 Magnesium 2.5 mg/dL (1.8-2.4) H 09/17/18 05:30 Total Bilirubin 1.0 mg/dL (0.2-1) 09/17/18 05:30 AST 12 U/L (15-37) L 09/17/18 05:30 ALT 18 U/L (13-61) 09/17/18 05:30 Alkaline Phosphatase 66 U/L (45-117) 09/17/18 05:30 Creatine Kinase 47 U/L (26-308) 09/17/18 05:30 Troponin I 0.14 ng/ml (0.00-0.05) H 09/17/18 05:30 Total Protein 4.8 g/dl (6.4-8.2) L 09/17/18 05:30 Albumin 2.9 g/dl (3.4-5.0) L 09/17/18 05:30 Urine Color Ltyellow 09/16/18 17:20 Urine Appearance Clear 09/16/18 17:20 Urine pH 6.0 (5.0-8.0) 09/16/18 17:20 Ur Specific [place] 1.020 (1.010-1.035) 09/16/18 17:20 Urine Protein Negative (NEGATIVE) 09/16/18 17:20 Urine Glucose (UA) 3+ (NEGATIVE) H 09/16/18 17:20 Urine Ketones Trace (NEGATIVE) H 09/16/18 17:20 Urine Blood 1+ (NEGATIVE) H 09/16/18 17:20 Urine Nitrite Negative (NEGATIVE) 09/16/18 17:20 Urine Bilirubin Negative (<2.0 mg/dL) 09/16/18 17:20 Urine Urobilinogen Negative mg/dL (0.2-1.0) 09/16/18 17:20 Ur Leukocyte Esterase Negative (NEGATIVE) 09/16/18 17:20 Urine WBC (Auto) 1 /hpf (3-5) 09/16/18 17:20 Urine RBC (Auto) 3 /hpf (0-3) 09/16/18 17:20 Ur Epithelial Cells Rare /HPF (FEW) 09/16/18 17:20 Stool Occult Blood Negative (NEGATIVE) 09/16/18 13:57 Blood Type O POSITIVE 09/16/18 13:57 Antibody Screen Negative 09/16/18 13:57 Crossmatch See Detail 09/16/18 13:57 Active Medications Atorvastatin Calcium (Lipitor -) 20 mg PO HS [facility] Last Admin: 09/16/18 22:00 Dose: Not Given Duloxetine HCl (Cymbalta -) 30 mg PO BID [facility] Last Admin: 09/16/18 22:00 Dose: Not Given Finasteride (Proscar -) 5 mg PO HS [facility] Last Admin: 09/16/18 22:00 Dose: Not Given Sodium Chloride (Normal Saline -) 1,000 mls @ 125 mls/hr IV ASDIR [facility] Last Admin: 09/17/18 07:23 Dose: 125 mls/hr Insulin Aspart (Novolog Vial Sliding Scale -) 1 vial SQ Q6HPO [facility]; Protocol Last Admin: 09/17/18 07:22 Dose: Not Given Pantoprazole Sodium (Protonix Iv) 40 mg IVPUSH BID [facility] Last Admin: 09/16/18 22:00 Dose: Not Given ASSESSMENT/PLAN: 78 y/o M resident of [facility] with PMhx of Alzheimer's dementia, HTN, HLD, TIA, NIDDM, Renal cancer s/p nephrectomy admitted to ICU for Lower GI Bleed s/p Embolization #Neuro Hx of Alzheimer's dementia, TIA -A&Ox3, NAD however confused speech -CT Head: No CT evidence of acute intracranial pathology. Chronic left cerebellar infarct. Moderate to marked periventricular and subcortical chronic microvascular ischemic changes. Note is again made of moderate dilatation of the lateral third ventricles which may be disproportionate to the degree of cerebral atrophy - ? Possible normal pressure hydrocephalus versus secondary to central atrophy. -Continue home dose Donepezil, Duloxetine -Continue to monitor mental status #Cardio Troponemia Hx of HTN, HLD -Elevated Trop likely due to Demand, Trend -EKG: Sinus Bradycardia, VR 53, QTc 431 -Home dose AntiHTN meds, ASA held for GI bleed -Continue Home dose Atorvastatin #Pulm -Supplemental O2 to maintain SpO2> 90% -No active issues, continue to monitor #GI LGIB s/p Embolization -CTA: Contrast extravasation is seen within the cecal lumen consistent with localization of a focal bleeding site. -Dr. More consulted, appreciate rec's -IR (Dr. Evans) Consulted -D/C Pantoprazole 40mg BID -NPO since procedure; ADA diet once GI permits #Renal CKD Hx of Renal cancer s/p nephrectomy Hx of BPH -Cr remains stable -Continue Finasteride 5mg PO HS -Continue NS @ 125 mls/hr #Endo Hx of NIDDM -BGMs ISS Q6H while NPO then ACHS -Hold home dose oral hyperglycemic meds #Heme Acute blood loss Anemia -H&H trending down; will repeat CBC -Transfuse if hgb < 7.0 -Continue to monitor for signs of active bleeding #ID -Afebrile, Without leukocytosis -Urine Cx pending -Continue to monitor for signs of infection #FEN -NS @ 125 mls/hr -Replete lytes PRN -NPO; ADA diet tolerating PO #PPx -DVT: SCDs #LTD -Sheikh placed on 09/16 Code Status: Full Code Dispo: Transfer to Tele Visit type - Emergency Visit Emergency Visit: Yes ED Registration Date: 09/16/18 Care time: The patient presented to the Emergency Department on the above date and was hospitalized for further evaluation of their emergent condition. - New Patient This patient is new to me today: Yes Date on this admission: 09/17/18 - Critical Care Critical Care patient: Yes Total Critical Care Time (in minutes): 36 Critical Care Statement: The care of this patient involved high complexity decision making to prevent further life threatening deterioration of the patient 's condition and/or to evaluate & treat vital organ system(s) failure or risk of failure.
[2018-09-17] MEDS: DULoxetine HCL 30 MG CAPSULE.DR (FP) PO SCH ×2 (09:24→22:17)
[2018-09-17] MEDS: PANTOPRAZOLE SODIUM 40 MG VIAL IVPUSH SCH (09:24)
--- NOTE | 2018-09-17 13:00 | PN ---
Teaching Attending Note Name of Resident: Alina Esteves ATTENDING PHYSICIAN STATEMENT I saw and evaluated the patient. I reviewed the resident's note and discussed the case with the resident. I agree with the resident's findings and plan as documented. SUBJECTIVE: Patient seen and examined in the ICU. Awake and alert. Mildly confused. No further bleeding noted. Denies abdominal pain or discomfort. Denies CP or SOB. H&H stable. Intake & Output 09/14/18 09/15/18 09/16/18 09/17/18 23:59 23:59 23:59 23:59 Intake Total 1142 Output Total 150 Balance 992 Weight 182 lb 8 oz 187 lb Last Vital Signs Temp Pulse Resp BP Pulse Ox 98.0 F 82 17 134/62 99 09/17/18 07:00 09/17/18 11:00 09/17/18 11:00 09/17/18 11:00 09/17/18 07:33 Active Medications Atorvastatin Calcium (Lipitor -) 20 mg PO HS [facility] Last Admin: 09/16/18 22:00 Dose: Not Given Duloxetine HCl (Cymbalta -) 30 mg PO BID [facility] Last Admin: 09/17/18 09:24 Dose: 30 mg Finasteride (Proscar -) 5 mg PO HS [facility] Last Admin: 09/16/18 22:00 Dose: Not Given Sodium Chloride (Normal Saline -) 1,000 mls @ 125 mls/hr IV ASDIR [facility] Last Admin: 09/17/18 07:23 Dose: 125 mls/hr Insulin Aspart (Novolog Vial Sliding Scale -) 1 vial SQ Q6HPO [facility]; Protocol Last Admin: 09/17/18 11:16 Dose: Not Given Pantoprazole Sodium (Protonix Iv) 40 mg IVPUSH BID [facility] Last Admin: 09/17/18 09:24 Dose: 40 mg Constitutional: Yes: Awake and alert, No Distress Eyes: Yes: Conjunctiva Clear, EOM Intact, right pupil deformity HENT: Yes: Atraumatic, Normocephalic Neck: Yes: Supple Cardiovascular: Yes: Tachycardia, S1, S2. No: JVD, Gallop, Murmur Respiratory: Yes: Regular, CTA Bilaterally. No: Accessory Muscle Use, Rales, Rhonchi Gastrointestinal: Yes: Normal Bowel Sounds, Soft, Rectal Bleeding ...Rectal Exam: Yes: Guaiac Positive Renal/: Yes: WNL Musculoskeletal: Yes: WNL Extremities: Yes: WNL Edema: No Integumentary: Yes: Skin Tear (left forearm) Neurological: Yes: Non-focal ...Motor Strength: WNL Psychiatric: Yes: Alert, Oriented Labs: Laboratory Results - last 24 hr 09/16/18 09/16/18 09/16/18 13:57 13:57 13:57 WBC 10.6 H RBC 4.47 Hgb 13.6 Hct 40.6 MCV 90.9 MCH 30.6 MCHC 33.6 RDW 13.9 Plt Count 172 MPV 9.4 Absolute Neuts (auto) 7.7 Neutrophils % 72.4 Lymphocytes % 18.4 Monocytes % 7.2 Eosinophils % 1.4 Basophils % 0.6 Nucleated RBC % 0 PT with INR 13.60 H INR 1.15 H PTT (Actin FS) 27.6 Sodium Potassium Chloride Carbon Dioxide Anion Gap BUN Creatinine Creat Clearance w eGFR POC Glucometer Random Glucose Calcium Phosphorus Magnesium Total Bilirubin AST ALT Alkaline Phosphatase Creatine Kinase Troponin I Total Protein Albumin Urine Color Urine Appearance Urine pH Ur Specific [place] Urine Protein Urine Glucose (UA) Urine Ketones Urine Blood Urine Nitrite Urine Bilirubin Urine Urobilinogen Ur Leukocyte Esterase Urine WBC (Auto) Urine RBC (Auto) Ur Epithelial Cells Stool Occult Blood Negative Blood Type Antibody Screen Crossmatch 09/16/18 09/16/18 09/16/18 13:57 13:57 17:20 WBC RBC Hgb Hct MCV MCH MCHC RDW Plt Count MPV Absolute Neuts (auto) Neutrophils % Lymphocytes % Monocytes % Eosinophils % Basophils % Nucleated RBC % PT with INR INR PTT (Actin FS) Sodium 142 Potassium 4.5 Chloride 106 Carbon Dioxide 28 Anion Gap 8 BUN 25 H Creatinine 1.4 H Creat Clearance w eGFR 49.14 POC Glucometer Random Glucose 171 H Calcium 8.7 Phosphorus Magnesium Total Bilirubin 1.3 H AST 32 ALT 29 Alkaline Phosphatase 77 Creatine Kinase Troponin I Total Protein 6.1 L Albumin 3.7 Urine Color Ltyellow Urine Appearance Clear Urine pH 6.0 Ur Specific [place] 1.020 Urine Protein Negative Urine Glucose (UA) 3+ H Urine Ketones Trace H Urine Blood 1+ H Urine Nitrite Negative Urine Bilirubin Negative Urine Urobilinogen Negative Ur Leukocyte Esterase Negative Urine WBC (Auto) 1 Urine RBC (Auto) 3 Ur Epithelial Cells Rare Stool Occult Blood Blood Type O POSITIVE Antibody Screen Negative Crossmatch See Detail 09/16/18 09/16/18 09/17/18 20:10 20:10 01:25 WBC 13.6 H RBC 4.00 Hgb 12.4 Hct 36.6 MCV 91.5 MCH 31.1 MCHC 33.9 RDW 14.0 Plt Count 188 MPV 9.6 Absolute Neuts (auto) Neutrophils % Lymphocytes % Monocytes % Eosinophils % Basophils % Nucleated RBC % PT with INR INR PTT (Actin FS) Sodium Potassium Chloride Carbon Dioxide Anion Gap BUN Creatinine Creat Clearance w eGFR POC Glucometer 190 202 Random Glucose Calcium Phosphorus Magnesium Total Bilirubin AST ALT Alkaline Phosphatase Creatine Kinase Troponin I Total Protein Albumin Urine Color Urine Appearance Urine pH Ur Specific [place] Urine Protein Urine Glucose (UA) Urine Ketones Urine Blood Urine Nitrite Urine Bilirubin Urine Urobilinogen Ur Leukocyte Esterase Urine WBC (Auto) Urine RBC (Auto) Ur Epithelial Cells Stool Occult Blood Blood Type Antibody Screen Crossmatch 09/17/18 09/17/18 09/17/18 01:30 05:30 05:30 WBC 15.8 H RBC 3.60 L Hgb 11.1 L Hct 33.3 L MCV 92.5 MCH 30.9 MCHC 33.4 RDW 13.8 Plt Count 197 MPV 9.4 Absolute Neuts (auto) Neutrophils % Lymphocytes % Monocytes % Eosinophils % Basophils % Nucleated RBC % PT with INR 13.70 H INR 1.16 H PTT (Actin FS) Sodium 141 Potassium 3.9 Chloride 107 Carbon Dioxide 24 Anion Gap 10 BUN 31 H Creatinine 1.4 H Creat Clearance w eGFR 49.14 POC Glucometer Random Glucose 174 H Calcium 7.8 L Phosphorus 5.3 H Magnesium 2.5 H Total Bilirubin 1.0 AST 12 L ALT 18 Alkaline Phosphatase 66 Creatine Kinase 47 Troponin I 0.14 H Total Protein 4.8 L Albumin 2.9 L Urine Color Urine Appearance Urine pH Ur Specific [place] Urine Protein Urine Glucose (UA) Urine Ketones Urine Blood Urine Nitrite Urine Bilirubin Urine Urobilinogen Ur Leukocyte Esterase Urine WBC (Auto) Urine RBC (Auto) Ur Epithelial Cells Stool Occult Blood Blood Type Antibody Screen Crossmatch 09/17/18 09/17/18 09/17/18 06:32 06:45 11:13 WBC 14.0 H RBC 3.28 L Hgb 10.1 L Hct 30.0 L MCV 91.7 MCH 30.8 MCHC 33.6 RDW 13.9 Plt Count 180 MPV 10.0 Absolute Neuts (auto) Neutrophils % Lymphocytes % Monocytes % Eosinophils % Basophils % Nucleated RBC % PT with INR INR PTT (Actin FS) Sodium Potassium Chloride Carbon Dioxide Anion Gap BUN Creatinine Creat Clearance w eGFR POC Glucometer 171 138 Random Glucose Calcium Phosphorus Magnesium Total Bilirubin AST ALT Alkaline Phosphatase Creatine Kinase Troponin I Total Protein Albumin Urine Color Urine Appearance Urine pH Ur Specific [place] Urine Protein Urine Glucose (UA) Urine Ketones Urine Blood Urine Nitrite Urine Bilirubin Urine Urobilinogen Ur Leukocyte Esterase Urine WBC (Auto) Urine RBC (Auto) Ur Epithelial Cells Stool Occult Blood Blood Type Antibody Screen Crossmatch Problem List - Problems (1) Rectal bleed (2) Syncope (3) DM type 2 (diabetes mellitus, type 2) (4) H/O malignant neoplasm of kidney (5) TIA (transient ischemic attack) (6) Gout (7) BPH (benign prostatic hyperplasia) (8) Alzheimer disease (9) HTN (hypertension) (10) HLD (hyperlipidemia) Assessment/Plan Normal transfusion thresholds O2 as needed Follow H&H O2 as needed IVF Glycemic control PO when OK with GI Can D/C PPI Floor monitoring Dr Gamino
--- NOTE | 2018-09-17 13:24 | PN ---
Physical Exam: SUBJECTIVE: Patient seen and examined, denies any nausea, vomiting, abdominal pain or dizziness or chest pain. Per RN, no fur OBJECTIVE: Vital Signs Period Temp Pulse Resp BP Sys/Gatica Pulse Ox Last 24 Hr 97.3 F-98.7 F 53-90 12-25 122-162/50-90 99-100 GENERAL: The patient is awake, alert, and fully oriented, in no acute distress. HEAD: Normal with no signs of trauma. EYES: PERRL, extraocular movements intact, sclera anicteric, conjunctiva clear. No ptosis. ENT: Ears normal, nares patent, oropharynx clear without exudates, moist mucous membranes. NECK: Trachea midline, full range of motion, supple. LUNGS: Breath sounds equal, clear to auscultation bilaterally, no wheezes, no crackles, no accessory muscle use. HEART: Regular rate and rhythm, S1, S2 without murmur, rub or gallop. ABDOMEN: Soft, nontender, nondistended, normoactive bowel sounds, no guarding, no rebound, no hepatosplenomegaly, no masses. EXTREMITIES: 2+ pulses, warm, well-perfused, no edema. NEUROLOGICAL: Cranial nerves II through XII grossly intact. Normal speech, gait not observed. PSYCH: Normal mood, normal affect. SKIN: Warm, dry, normal turgor, no rashes or lesions noted Laboratory Results - last 24 hr 09/16/18 09/16/18 09/16/18 13:57 13:57 13:57 WBC 10.6 H RBC 4.47 Hgb 13.6 Hct 40.6 MCV 90.9 MCH 30.6 MCHC 33.6 RDW 13.9 Plt Count 172 MPV 9.4 Absolute Neuts (auto) 7.7 Neutrophils % 72.4 Lymphocytes % 18.4 Monocytes % 7.2 Eosinophils % 1.4 Basophils % 0.6 Nucleated RBC % 0 PT with INR 13.60 H INR 1.15 H PTT (Actin FS) 27.6 Sodium Potassium Chloride Carbon Dioxide Anion Gap BUN Creatinine Creat Clearance w eGFR POC Glucometer Random Glucose Calcium Phosphorus Magnesium Total Bilirubin AST ALT Alkaline Phosphatase Creatine Kinase Troponin I Total Protein Albumin Urine Color Urine Appearance Urine pH Ur Specific [place] Urine Protein Urine Glucose (UA) Urine Ketones Urine Blood Urine Nitrite Urine Bilirubin Urine Urobilinogen Ur Leukocyte Esterase Urine WBC (Auto) Urine RBC (Auto) Ur Epithelial Cells Stool Occult Blood Negative Blood Type Antibody Screen Crossmatch 09/16/18 09/16/18 09/16/18 13:57 13:57 17:20 WBC RBC Hgb Hct MCV MCH MCHC RDW Plt Count MPV Absolute Neuts (auto) Neutrophils % Lymphocytes % Monocytes % Eosinophils % Basophils % Nucleated RBC % PT with INR INR PTT (Actin FS) Sodium 142 Potassium 4.5 Chloride 106 Carbon Dioxide 28 Anion Gap 8 BUN 25 H Creatinine 1.4 H Creat Clearance w eGFR 49.14 POC Glucometer Random Glucose 171 H Calcium 8.7 Phosphorus Magnesium Total Bilirubin 1.3 H AST 32 ALT 29 Alkaline Phosphatase 77 Creatine Kinase Troponin I Total Protein 6.1 L Albumin 3.7 Urine Color Ltyellow Urine Appearance Clear Urine pH 6.0 Ur Specific [place] 1.020 Urine Protein Negative Urine Glucose (UA) 3+ H Urine Ketones Trace H Urine Blood 1+ H Urine Nitrite Negative Urine Bilirubin Negative Urine Urobilinogen Negative Ur Leukocyte Esterase Negative Urine WBC (Auto) 1 Urine RBC (Auto) 3 Ur Epithelial Cells Rare Stool Occult Blood Blood Type O POSITIVE Antibody Screen Negative Crossmatch See Detail 09/16/18 09/16/18 09/17/18 20:10 20:10 01:25 WBC 13.6 H RBC 4.00 Hgb 12.4 Hct 36.6 MCV 91.5 MCH 31.1 MCHC 33.9 RDW 14.0 Plt Count 188 MPV 9.6 Absolute Neuts (auto) Neutrophils % Lymphocytes % Monocytes % Eosinophils % Basophils % Nucleated RBC % PT with INR INR PTT (Actin FS) Sodium Potassium Chloride Carbon Dioxide Anion Gap BUN Creatinine Creat Clearance w eGFR POC Glucometer 190 202 Random Glucose Calcium Phosphorus Magnesium Total Bilirubin AST ALT Alkaline Phosphatase Creatine Kinase Troponin I Total Protein Albumin Urine Color Urine Appearance Urine pH Ur Specific [place] Urine Protein Urine Glucose (UA) Urine Ketones Urine Blood Urine Nitrite Urine Bilirubin Urine Urobilinogen Ur Leukocyte Esterase Urine WBC (Auto) Urine RBC (Auto) Ur Epithelial Cells Stool Occult Blood Blood Type Antibody Screen Crossmatch 09/17/18 09/17/18 09/17/18 01:30 05:30 05:30 WBC 15.8 H RBC 3.60 L Hgb 11.1 L Hct 33.3 L MCV 92.5 MCH 30.9 MCHC 33.4 RDW 13.8 Plt Count 197 MPV 9.4 Absolute Neuts (auto) Neutrophils % Lymphocytes % Monocytes % Eosinophils % Basophils % Nucleated RBC % PT with INR 13.70 H INR 1.16 H PTT (Actin FS) Sodium 141 Potassium 3.9 Chloride 107 Carbon Dioxide 24 Anion Gap 10 BUN 31 H Creatinine 1.4 H Creat Clearance w eGFR 49.14 POC Glucometer Random Glucose 174 H Calcium 7.8 L Phosphorus 5.3 H Magnesium 2.5 H Total Bilirubin 1.0 AST 12 L ALT 18 Alkaline Phosphatase 66 Creatine Kinase 47 Troponin I 0.14 H Total Protein 4.8 L Albumin 2.9 L Urine Color Urine Appearance Urine pH Ur Specific [place] Urine Protein Urine Glucose (UA) Urine Ketones Urine Blood Urine Nitrite Urine Bilirubin Urine Urobilinogen Ur Leukocyte Esterase Urine WBC (Auto) Urine RBC (Auto) Ur Epithelial Cells Stool Occult Blood Blood Type Antibody Screen Crossmatch 09/17/18 09/17/18 09/17/18 06:32 06:45 11:13 WBC 14.0 H RBC 3.28 L Hgb 10.1 L Hct 30.0 L MCV 91.7 MCH 30.8 MCHC 33.6 RDW 13.9 Plt Count 180 MPV 10.0 Absolute Neuts (auto) Neutrophils % Lymphocytes % Monocytes % Eosinophils % Basophils % Nucleated RBC % PT with INR INR PTT (Actin FS) Sodium Potassium Chloride Carbon Dioxide Anion Gap BUN Creatinine Creat Clearance w eGFR POC Glucometer 171 138 Random Glucose Calcium Phosphorus Magnesium Total Bilirubin AST ALT Alkaline Phosphatase Creatine Kinase Troponin I Total Protein Albumin Urine Color Urine Appearance Urine pH Ur Specific [place] Urine Protein Urine Glucose (UA) Urine Ketones Urine Blood Urine Nitrite Urine Bilirubin Urine Urobilinogen Ur Leukocyte Esterase Urine WBC (Auto) Urine RBC (Auto) Ur Epithelial Cells Stool Occult Blood Blood Type Antibody Screen Crossmatch Active Medications Generic Name Dose Route Start Last Admin Trade Name Freq PRN Reason Stop Dose Admin Atorvastatin Calcium 20 mg 09/16/18 22:00 09/16/18 22:00 Lipitor - PO Not Given HS ELEAZAR Duloxetine HCl 30 mg 09/16/18 22:00 09/17/18 09:24 Cymbalta - PO 30 mg BID ELEAZAR Administration Finasteride 5 mg 09/16/18 22:00 09/16/18 22:00 Proscar - PO Not Given HS ELEAZAR Sodium Chloride 1,000 mls @ 125 mls/hr 09/17/18 07:00 09/17/18 07:23 Normal Saline - IV 125 mls/hr ASDIR ELEAZAR Administration Insulin Aspart 1 vial 09/16/18 18:15 09/17/18 11:16 Novolog Vial Sliding Scale - SQ Not Given Q6HPO [facility] Protocol Pantoprazole Sodium 40 mg 09/17/18 22:00 Protonix - PO BID ELEAZAR ct a/p, cta results noted ASSESSMENT/PLAN: 78 yom with Alzheimer's dementia, hypertension, hyperlipidemia, diabetes mellitus, renal CA (S/P right nephrectomy) gout, spinal stenosis, and right retinal tear. CVA admitted with near syncope and GI bleed -Acute lower GI bleed, likely diverticular, r/o AVM, mass -Near syncope, likely from above -Elevated troponin, suspect demand medicated type II NSTEMI from above -HTN -HLD -Alzheimer's dementia -NIDDM -Renal Ca s/p right nephrectomy with CKD stage II-III -Gout -Spinal stenosis -CVA -RIght retinal tear Plan: Overnight events noted s/p IR guided embolization. No further bleed h/h noted, Repeat CBC later today, PRBC transfusion accordingly. PO per GI, anticipate colonoscopy. Continue IVF, 2 large bore IV Change PPI to 40 mg once daily. Cycle troponin, check 2D echo, cardiology input if concerns. Will eventually need ischemia w/u outpatient once active bleed concerns resolved. Hold ASA. Continue statin. resume coreg over next 24-48 hours if no further bleed and BP stable. CT head neg. Continue donepezil. DVTPPX SCDs Code status Full Agree with transfer to telemetry. Plan discussed with patient and [employer] total critical care time spent 36 min . Visit type - Emergency Visit Emergency Visit: Yes ED Registration Date: 09/16/18 Care time: The patient presented to the Emergency Department on the above date and was hospitalized for further evaluation of their emergent condition. - New Patient This patient is new to me today: No - Critical Care Critical Care patient: Yes Total Critical Care Time (in minutes): 36 Critical Care Statement: The care of this patient involved high complexity decision making to prevent further life threatening deterioration of the patient 's condition and/or to evaluate & treat vital organ system(s) failure or risk of failure.
[2018-09-17 13:54] LABS: BASO % 0.8 % (0-2.0); EOS % 0.7 % (0-4.5); HEMATOCRIT 27.6 % (35.4-49); HEMOGLOBIN 9.2 GM/dL (11.7-16.9); MCH 30.7 pg (25.7-33.7); MCHC 33.4 g/dl (32.0-35.9); MEAN CELL VOLUME 91.8 fl (80-96); MEAN PLT VOLUME 9.5 fl (7.5-11.1); MONO % 8.2 % (3.8-10.2); NEUT % 69.3 % (42.8-82.8); PLATELET COUNT 192 K/MM3 (134-434); RBC 3.01 M/mm3 (4.00-5.60); RDW 13.9 % (11.9-15.9); WHITE BLOOD COUNT 13.7 K/mm3 (4.0-10.0)
--- NOTE | 2018-09-17 14:38 | ECHO ---
Name: FABIO YI Exam:Adult Echocardiogram Study Date: 09/17/2018 01:48 PM Age: 78 yrs Reason For Study: ELEVATED TROPONIN ASSESS FOR WALL MOTION ABNORMALITIES LVF Height: 74 in Weight: 187 lb BSA: 2.1 m2 BP: 148/53 mmHg MMode/2D Measurements & Calculations IVSd: 1.1 cm Ao root diam: 2.8 cm LVIDd: 4.9 cm LA dimension: 3.0 cm LVIDs: 3.5 cm LVPWd: 0.76 cm EDV(Teich): 113.7 ml ESV(Teich): 51.7 ml Doppler Measurements & Calculations MV E max donavon: 67.6 cm/sec Ao V2 max: 165.8 cm/sec MV A max donavon: 85.9 cm/sec Ao max P.0 mmHg MV E/A: 0.79 MV dec time: 0.29 sec LV V1 max P.9 mmHg PI end-d donavon: 72.7 cm/sec LV V1 max: 98.7 cm/sec Med Peak E' Donavon: 4.8 cm/sec Med E/e': 14.2 Lat Peak E' Donavon: 7.7 cm/sec Lat E/e': 8.8 Left Ventricle Left ventricular systolic function is grossly normal. Ejection Fraction = 50-55%. The transmitral spe ctral Doppler flow pattern is suggestive of impaired LV relaxation. Right Ventricle The right ventricle is normal in size and function. Atria Normal left and right atrial size and function. Mitral Valve The mitral valve is normal in structure and function. There is no mitral valve stenosis. There is tra ce to mild mitral regurgitation. Tricuspid Valve The tricuspid valve is normal in structure and function. There is mild tricuspid regurgitation. Aortic Valve The aortic valve opens well. No hemodynamically significant valvular aortic stenosis. No aortic regur gitation is present. Pulmonic Valve The pulmonic valve is not well seen, but is grossly normal. There is no pulmonic valvular stenosis. M ild pulmonic valvular regurgitation. Great Vessels The aortic root is normal size. Pericardium/Pleura There is no pericardial effusion. Interpretation Summary Left ventricular systolic function is grossly normal. Ejection Fraction = 50-55%. The transmitral spectral Doppler flow pattern is suggestive of impaired LV relaxation. The right ventricle is normal in size and function. There is trace to mild mitral regurgitation. There is mild tricuspid regurgitation. There is no pericardial effusion. MD Colon *Jan 09/17/2018 02:37 PM
--- NOTE | 2018-09-17 16:14 | PN ---
Progress Note, Physician History of Present Illness: seen and examined at bedside. no more bloody bm. denies abd pain, chest pain, sob. - Current Medication List Current Medications: Active Medications Atorvastatin Calcium (Lipitor -) [address] [facility] Last Admin: 09/16/18 22:00 Dose: Not Given Duloxetine HCl (Cymbalta -) [address] [facility] Last Admin: 09/17/18 09:24 Dose: 30 mg Finasteride (Proscar -) [address] [facility] Last Admin: 09/16/18 22:00 Dose: Not Given Sodium Chloride (Normal Saline -) 1,000 mls @ 125 mls/hr IV ASDIR [facility] Last Admin: 09/17/18 07:23 Dose: 125 mls/hr Insulin Aspart (Novolog Vial Sliding Scale -) [address] [facility]; Protocol Last Admin: 09/17/18 11:16 Dose: Not Given Pantoprazole Sodium (Protonix -) [address] [facility] - Objective Vital Signs: Vital Signs Temperature 98.4 F 09/17/18 15:00 Pulse Rate 61 09/17/18 15:00 Respiratory Rate 21 H 09/17/18 15:00 Blood Pressure 148/87 09/17/18 15:00 O2 Sat by Pulse Oximetry (%) 99 09/17/18 07:33 Constitutional: Yes: No Distress, Calm Cardiovascular: Yes: Regular Rate and Rhythm, S1, S2. No: Murmur Respiratory: Yes: CTA Bilaterally Gastrointestinal: Yes: Normal Bowel Sounds, Soft, Hypoactive Bowel Sounds. No: Melena, Tenderness Edema: No Neurological: Yes: Alert, Oriented Labs: CBC, BMP 09/17/18 13:09 09/17/18 05:30 INR, PTT INR 1.16 (0.83-1.09) H 09/17/18 05:30 Impression/Plan Impression/Plan: 78 y/o M admitted to ICU for rectal bleed now s/p IR guided embolization. - LGIB - elevated trop likely demand ischemia - htn and hld - NIDDM - renal CA s/p R nephrectomy s/p IR guided embolization H&H thus far stable, repeat CBC at 8pm today cont. to trend trop PPI PO 40mg daily cont. IVF advance diet to floor Visit type - Emergency Visit Emergency Visit: No - New Patient This patient is new to me today: Yes Date on this admission: 09/17/18 - Critical Care Critical Care patient: Yes Total Critical Care Time (in minutes): 35 Critical Care Statement: The care of this patient involved high complexity decision making to prevent further life threatening deterioration of the patient 's condition and/or to evaluate & treat vital organ system(s) failure or risk of failure. - Discharge Referral Referred to [facility] Med P.C.: No
--- NOTE | 2018-09-17 16:21 | PN ---
GI Progress Note Subjective: covering fotr Dr Bradshaw s/p angiogram with control of bleeding of a cecal diverticlum, no active bleeding - Objective Vital Signs: Vital Signs Temperature 98.4 F 09/17/18 15:00 Pulse Rate 61 09/17/18 15:00 Respiratory Rate 21 H 09/17/18 15:00 Blood Pressure 148/87 09/17/18 15:00 O2 Sat by Pulse Oximetry (%) 99 09/17/18 07:33 Constitutional: Well Nourished, Poor Hygeine HENT: Yes: Atraumatic, Tonsillar Exudate Cardiovascular: Yes: Regular Rate and Rhythm Respiratory: Yes: CTA Bilaterally ...Palpate: Yes: Soft. No: Firm/Rigid, Guarding, Hepatomegaly, Mass, Pulsatile Mass, Splenomegaly Labs: CBC, BMP 09/17/18 13:09 09/17/18 05:30 INR, PTT INR 1.16 (0.83-1.09) H 09/17/18 05:30 Problem List - Problems (1) Rectal bleed Assessment/Plan: secondary to diverticular bleeding now resolved R> advance diet will need colonoscopy in 2 weeks skyla to r/o occult malignancy Code(s): K62.5 - HEMORRHAGE OF ANUS AND RECTUM
[2018-09-17] MEDS: BACITRACIN 15 GM TUBE TOPICAL OINTMENT TP SCH (18:28)
[2018-09-17 20:27] LABS: BASO % 0.8 % (0-2.0); EOS % 1.2 % (0-4.5); HEMATOCRIT 25.7 % (35.4-49); HEMOGLOBIN 8.7 GM/dL (11.7-16.9); LYMPH % 23.4 % (8-40); MCH 31.1 pg (25.7-33.7); MCHC 33.8 g/dl (32.0-35.9); MEAN CELL VOLUME 91.9 fl (80-96); MEAN PLT VOLUME 9.7 fl (7.5-11.1); MONO % 8.2 % (3.8-10.2); NEUT % 66.4 % (42.8-82.8); PLATELET COUNT 179 K/MM3 (134-434); RDW 13.9 % (11.9-15.9); WHITE BLOOD COUNT 13.6 K/mm3 (4.0-10.0)
[2018-09-17] MEDS ORDERED: PANTOPRAZOLE 40 MG TABLET (FP) PO SCH (22:00)
[2018-09-17] MEDS: ATORVASTATIN CA 20 MG TABLET (FP) PO SCH (22:17)
[2018-09-17] MEDS: FINASTERIDE 5 MG TABLET (FP) PO SCH (22:17)
[2018-09-18] MEDS: INSULIN SLIDING SCALE (NOVOLOG) 1 VIAL SQ SCH ×4 (00:23→17:42)
[2018-09-18 07:22] LABS: BASO % 0.5 % (0-2.0); EOS % 2.5 % (0-4.5); HEMATOCRIT 23.2 % (35.4-49); LYMPH % 23.8 % (8-40); MCH 31.1 pg (25.7-33.7); MCHC 34.5 g/dl (32.0-35.9); MEAN CELL VOLUME 90.1 fl (80-96); MEAN PLT VOLUME 9.3 fl (7.5-11.1); MONO % 9.3 % (3.8-10.2); NEUT % 63.9 % (42.8-82.8); PLATELET COUNT 154 K/MM3 (134-434); RBC 2.58 M/mm3 (4.00-5.60); RDW 13.6 % (11.9-15.9); WHITE BLOOD COUNT 13.6 K/mm3 (4.0-10.0)
[2018-09-18] MEDS: SODIUM CHLORIDE 1,000 ML IV SCH (07:38)
[2018-09-18 07:55] LABS: ALBUMIN 2.8 g/dl (3.4-5.0); ALK PHOS 52 U/L (45-117); ANION GAP 9 MMOL/L (8-16); BILIRUBIN,TOTAL 0.7 mg/dL (0.2-1); BLOOD UREA NITROGEN 24 mg/dL (7-18); CALCIUM 7.8 mg/dL (8.5-10.1); CHLORIDE 109 mmol/L (98-107); CO2 25 mmol/L (21-32); CREATININE 1.3 mg/dL (0.55-1.3); GLUCOSE,RANDOM 106 mg/dL (74-106); MAGNESIUM 1.7 mg/dL (1.8-2.4); PHOSPHOROUS 2.9 mg/dL (2.5-4.9); POTASSIUM 3.1 mmol/L (3.5-5.1); SGOT/AST 17 U/L (15-37); SGPT/ALT 13 U/L (13-61); SODIUM 144 mmol/L (136-145); TOT PROT 4.4 g/dl (6.4-8.2)
[2018-09-18] MEDS ORDERED: SODIUM CHLORIDE 1,000 ML IV SCH (08:24)
[2018-09-18] MEDS ORDERED: POTASSIUM CHLORIDE ORAL LIQUID 20 MEQ/15 ML PO ONE ×2 (08:40→12:00)
[2018-09-18] MEDS ORDERED: MAGNESIUM SULF 50% (8.12 MEQ/2 ML-1 GM VIAL) IVPB ONE (09:00)
[2018-09-18] MEDS: DULoxetine HCL 30 MG CAPSULE.DR (FP) PO SCH ×2 (09:19→22:19)
[2018-09-18] MEDS: BACITRACIN 15 GM TUBE TOPICAL OINTMENT TP SCH (09:19)
[2018-09-18] MEDS ORDERED: PANTOPRAZOLE 40 MG TABLET (FP) PO SCH (10:00)
--- NOTE | 2018-09-18 12:21 | PN ---
Physical Exam: SUBJECTIVE: Patient seen and examined, no nausea, vomiting, abdominal pain or dizziness. No further blood BM as discussed with nursing. OBJECTIVE: Vital Signs Period Temp Pulse Resp BP Sys/Gatica Pulse Ox Last 24 Hr 97.8 F-98.8 F 60-78 15-22 137-171/51-87 99-99 GENERAL: The patient is awake, alert, oriented to place, person, time, in no acute distress. HEAD: Normal with no signs of trauma. EYES: PERRL, extraocular movements intact, sclera anicteric, conjunctiva clear. No ptosis. ENT: Ears normal, nares patent, oropharynx clear without exudates, moist mucous membranes. NECK: Trachea midline, full range of motion, supple. LUNGS: Breath sounds equal, clear to auscultation bilaterally, no wheezes, no crackles, no accessory muscle use. HEART: Regular rate and rhythm, S1, S2 ABDOMEN: Soft, nontender, nondistended, normoactive bowel sounds, no guarding, no rebound, EXTREMITIES: 2+ pulses, warm, well-perfused, no edema. PSYCH: Normal mood, normal affect. SKIN: Warm, dry, normal turgor, no rashes or lesions noted Laboratory Results - last 24 hr 09/17/18 09/17/18 09/17/18 13:09 13:09 17:21 WBC 13.7 H RBC 3.01 L Hgb 9.2 L Hct 27.6 L MCV 91.8 MCH 30.7 MCHC 33.4 RDW 13.9 Plt Count 192 MPV 9.5 Absolute Neuts (auto) 9.5 H Neutrophils % 69.3 Lymphocytes % 21.0 Monocytes % 8.2 Eosinophils % 0.7 Basophils % 0.8 Nucleated RBC % 0 Sodium Potassium Chloride Carbon Dioxide Anion Gap BUN Creatinine Creat Clearance w eGFR POC Glucometer 120 Random Glucose Calcium Phosphorus Magnesium Total Bilirubin AST ALT Alkaline Phosphatase Troponin I 0.16 H Total Protein Albumin 09/17/18 09/17/18 09/17/18 19:10 19:10 22:16 WBC 13.6 H RBC 2.80 L Hgb 8.7 L Hct 25.7 L MCV 91.9 MCH 31.1 MCHC 33.8 RDW 13.9 Plt Count 179 MPV 9.7 Absolute Neuts (auto) 9.0 H Neutrophils % 66.4 Lymphocytes % 23.4 Monocytes % 8.2 Eosinophils % 1.2 Basophils % 0.8 Nucleated RBC % 0 Sodium Potassium Chloride Carbon Dioxide Anion Gap BUN Creatinine Creat Clearance w eGFR POC Glucometer 156 Random Glucose Calcium Phosphorus Magnesium Total Bilirubin AST ALT Alkaline Phosphatase Troponin I 0.15 H Total Protein Albumin 09/18/18 09/18/18 09/18/18 06:41 07:00 07:00 WBC 13.6 H RBC 2.58 L Hgb 8.0 L Hct 23.2 L MCV 90.1 MCH 31.1 MCHC 34.5 RDW 13.6 Plt Count 154 MPV 9.3 Absolute Neuts (auto) 8.7 H Neutrophils % 63.9 Lymphocytes % 23.8 Monocytes % 9.3 Eosinophils % 2.5 D Basophils % 0.5 Nucleated RBC % 0 Sodium 144 Potassium 3.1 L Chloride 109 H Carbon Dioxide 25 Anion Gap 9 BUN 24 H Creatinine 1.3 Creat Clearance w eGFR 53.53 POC Glucometer 69 Random Glucose 106 Calcium 7.8 L Phosphorus 2.9 Magnesium 1.7 L Total Bilirubin 0.7 AST 17 ALT 13 Alkaline Phosphatase 52 Troponin I Total Protein 4.4 L Albumin 2.8 L 09/18/18 10:46 WBC RBC Hgb Hct MCV MCH MCHC RDW Plt Count MPV Absolute Neuts (auto) Neutrophils % Lymphocytes % Monocytes % Eosinophils % Basophils % Nucleated RBC % Sodium Potassium Chloride Carbon Dioxide Anion Gap BUN Creatinine Creat Clearance w eGFR POC Glucometer 213 Random Glucose Calcium Phosphorus Magnesium Total Bilirubin AST ALT Alkaline Phosphatase Troponin I Total Protein Albumin Active Medications Generic Name Dose Route Start Last Admin Trade Name Freq PRN Reason Stop Dose Admin Atorvastatin Calcium 20 mg 09/16/18 22:00 09/17/18 22:17 Lipitor - PO 20 mg HS ELEAZAR Administration Bacitracin 1 applic 09/17/18 17:30 09/18/18 09:19 Bacitracin - TP 1 applic DAILY ELEAZAR Administration Duloxetine HCl 30 mg 09/16/18 22:00 09/18/18 09:19 Cymbalta - PO 30 mg BID ELEAZAR Administration Finasteride 5 mg 09/16/18 22:00 09/17/18 22:17 Proscar - PO 5 mg HS ELEAZAR Administration Sodium Chloride 1,000 mls @ 75 mls/hr 09/18/18 08:24 09/18/18 09:19 Normal Saline - IV 75 mls/hr ASDIR ELEAZAR Administration Insulin Aspart 1 vial 09/16/18 18:15 09/18/18 11:01 Novolog Vial Sliding Scale - SQ 2 units Q6HPO ELEAZAR Administration Protocol Pantoprazole Sodium 40 mg 09/18/18 10:00 09/18/18 09:19 Protonix - PO 40 mg DAILY ELEAZAR Administration ASSESSMENT/PLAN: 78 yom with Alzheimer's dementia, hypertension, hyperlipidemia, diabetes mellitus, renal CA (S/P right nephrectomy) gout, spinal stenosis, and right retinal tear. CVA admitted with near syncope and GI bleed -Acute lower GI bleed, likely diverticular, r/o AVM, mass -Near syncope, likely from above -Elevated troponin, suspect demand medicated type II NSTEMI from above -HTN -HLD -Alzheimer's dementia -NIDDM -Renal Ca s/p right nephrectomy with CKD stage II-III -Gout -Spinal stenosis -CVA -RIght retinal tear Plan: s/p IR guided embolization. No further bleed concerns. h/h drifting down, suspect equilibrating and from hemodilution. Repeat h/h this afternoon. GI input noted, place for colonoscopy in few weeks Advance diet if h/h stable this afternoon. Taper IVF as tolerates diet well. resume coreg. Hold amlodipine/ramipril for now. Renal function stable post contrast, trend for now. trop flat, 2D echo with no concerns. Will need outpatient cardiology follow up and further testing once bleed concerns have resolved. Hold ASA. Continue statin. CT head neg. Continue donepezil. DVTPPX SCDs Code status Full Dispo PT eval and CM consult Plan for d/c back to dementia unit at assisted living vs SNF in 48 hours if h/h stable and disposition arranged. plan discussed with nursing and daughter at bedside in detail, all questions answered. Visit type - Emergency Visit Emergency Visit: Yes ED Registration Date: 09/16/18 Care time: The patient presented to the Emergency Department on the above date and was hospitalized for further evaluation of their emergent condition. - New Patient This patient is new to me today: No - Critical Care Critical Care patient: No - Discharge Referral Referred to [facility] Med P.C.: No
[2018-09-18 12:25] LABS: HEMATOCRIT 23.5 % (35.4-49); HEMOGLOBIN 8.1 GM/dL (11.7-16.9); MCHC 34.3 g/dl (32.0-35.9); MEAN CELL VOLUME 90.3 fl (80-96); MEAN PLT VOLUME 8.9 fl (7.5-11.1); PLATELET COUNT 163 K/MM3 (134-434); RDW 13.9 % (11.9-15.9); WHITE BLOOD COUNT 11.1 K/mm3 (4.0-10.0)
--- NOTE | 2018-09-18 18:09 | PN ---
GI Progress Note Subjective: covering for Dr Bradshaw No active bleeding noted, tolerated clear liquids, spoke to her daughter today and discussed findings - Objective Vital Signs: Vital Signs Temperature 98.2 F 09/18/18 14:00 Pulse Rate 74 09/18/18 14:00 Respiratory Rate 20 09/18/18 14:00 Blood Pressure 142/68 09/18/18 14:00 O2 Sat by Pulse Oximetry (%) 99 09/18/18 07:47 Constitutional: Well Nourished Eyes: Yes: Conjunctiva Clear HENT: Yes: Atraumatic Neck: Yes: Supple Respiratory: Yes: CTA Bilaterally ...Palpate: Yes: Soft. No: Firm/Rigid, Guarding, Hepatomegaly, Mass, Pulsatile Mass, Splenomegaly, Tenderness Labs: CBC, BMP 09/18/18 11:30 09/18/18 07:00 INR, PTT INR 1.16 (0.83-1.09) H 09/17/18 05:30 Problem List - Problems (1) Rectal bleed Assessment/Plan: most likely diverticular bleeding R> advance diet Dr Wang will resume to follow patient this Thursday and schedule colonoscopy Thursday Code(s): K62.5 - HEMORRHAGE OF ANUS AND RECTUM
[2018-09-18] MEDS ORDERED: CARVEDILOL 25 MG TABLET (FP) PO SCH (22:00)
[2018-09-18] MEDS: FINASTERIDE 5 MG TABLET (FP) PO SCH (22:19)
[2018-09-18] MEDS: ATORVASTATIN CA 20 MG TABLET (FP) PO SCH (22:20)
[2018-09-19] MEDS: INSULIN SLIDING SCALE (NOVOLOG) 1 VIAL SQ SCH ×4 (00:31→17:45)
[2018-09-19 07:21] LABS: HEMATOCRIT 21.6 % (35.4-49); HEMOGLOBIN 7.5 GM/dL (11.7-16.9); MCH 31.9 pg (25.7-33.7); MCHC 34.8 g/dl (32.0-35.9); MEAN CELL VOLUME 91.8 fl (80-96); MEAN PLT VOLUME 9.5 fl (7.5-11.1); PLATELET COUNT 136 K/MM3 (134-434); RBC 2.36 M/mm3 (4.00-5.60); RDW 14.3 % (11.9-15.9); WHITE BLOOD COUNT 10.2 K/mm3 (4.0-10.0)
[2018-09-19 07:45] LABS: ANION GAP 6 MMOL/L (8-16); BLOOD UREA NITROGEN 18 mg/dL (7-18); CALCIUM 7.4 mg/dL (8.5-10.1); CHLORIDE 113 mmol/L (98-107); CO2 29 mmol/L (21-32); CREATININE 1.2 mg/dL (0.55-1.3); GLUCOSE,RANDOM 139 mg/dL (74-106); MAGNESIUM 2.2 mg/dL (1.8-2.4); PHOSPHOROUS 2.9 mg/dL (2.5-4.9); POTASSIUM 3.2 mmol/L (3.5-5.1); SODIUM 148 mmol/L (136-145)
[2018-09-19] MEDS: CARVEDILOL 25 MG TABLET (FP) PO SCH ×2 (09:48→21:44)
[2018-09-19] MEDS: DULoxetine HCL 30 MG CAPSULE.DR (FP) PO SCH ×2 (09:48→21:44)
[2018-09-19] MEDS: PANTOPRAZOLE 40 MG TABLET (FP) PO SCH (09:48)
[2018-09-19] MEDS: SODIUM CHLORIDE 1,000 ML IV SCH (09:49)
[2018-09-19] MEDS: BACITRACIN 15 GM TUBE TOPICAL OINTMENT TP SCH (09:49)
[2018-09-19] MEDS ORDERED: DULoxetine HCL 30 MG CAPSULE.DR (FP) PO SCH (10:00)
--- NOTE | 2018-09-19 16:28 | PN ---
GI Progress Note Subjective: no active bleeding but patient has progressive anemia - Objective Vital Signs: Vital Signs Temperature 98.2 F 09/19/18 13:00 Pulse Rate 66 09/19/18 13:00 Respiratory Rate 18 09/19/18 13:00 Blood Pressure 145/59 L 09/19/18 13:00 O2 Sat by Pulse Oximetry (%) 96 09/19/18 09:40 Constitutional: Well Nourished Eyes: Yes: Conjunctiva Clear HENT: Yes: Atraumatic Neck: Yes: Supple Cardiovascular: Yes: Regular Rate and Rhythm Respiratory: Yes: CTA Bilaterally ...Palpate: Yes: Soft. No: Firm/Rigid, Guarding, Hepatomegaly, Mass, Pulsatile Mass, Splenomegaly, Tenderness Labs: CBC, BMP 09/19/18 05:15 09/19/18 05:15 INR, PTT INR 1.16 (0.83-1.09) H 09/17/18 05:30 Problem List - Problems (1) Rectal bleed Assessment/Plan: resolved R> for colonoscopy Dr Astorga to see patient in am Code(s): K62.5 - HEMORRHAGE OF ANUS AND RECTUM
[2018-09-19] MEDS: ATORVASTATIN CA 20 MG TABLET (FP) PO SCH (21:44)
[2018-09-19] MEDS: FINASTERIDE 5 MG TABLET (FP) PO SCH (21:44)
[2018-09-19] MEDS ORDERED: ATORVASTATIN CA 20 MG TABLET (FP) PO SCH (22:00)
[2018-09-19] MEDS ORDERED: FINASTERIDE 5 MG TABLET (FP) PO SCH (22:00)
[2018-09-20] MEDS: INSULIN SLIDING SCALE (NOVOLOG) 1 VIAL SQ SCH ×4 (01:40→17:56)
[2018-09-20] MEDS: DULoxetine HCL 30 MG CAPSULE.DR (FP) PO SCH ×2 (09:33→21:18)
[2018-09-20] MEDS: CARVEDILOL 25 MG TABLET (FP) PO SCH ×2 (09:33→21:18)
[2018-09-20] MEDS: PANTOPRAZOLE 40 MG TABLET (FP) PO SCH (09:34)
[2018-09-20] MEDS: BACITRACIN 15 GM TUBE TOPICAL OINTMENT TP SCH (09:44)
[2018-09-20 10:40] LABS: HEMATOCRIT 23.3 % (35.4-49); HEMOGLOBIN 8.1 GM/dL (11.7-16.9); MCH 31.5 pg (25.7-33.7); MCHC 34.6 g/dl (32.0-35.9); MEAN CELL VOLUME 90.8 fl (80-96); MEAN PLT VOLUME 8.8 fl (7.5-11.1); PLATELET COUNT 130 K/MM3 (134-434); RBC 2.56 M/mm3 (4.00-5.60); RDW 13.8 % (11.9-15.9); WHITE BLOOD COUNT 9.4 K/mm3 (4.0-10.0)
--- NOTE | 2018-09-20 11:46 | PN ---
GI Progress Note Subjective: States that he had a dark bm today No abdominal pain Dwindling h/h noted over the weekend and transfused 1 U PRBC S/P IR embolization of branch of the ileocolic artery as there was active extravasation in the cecum noted on angiogram - Objective Vital Signs: Vital Signs Temperature 98 F 09/20/18 06:00 Pulse Rate 61 09/20/18 06:00 Respiratory Rate 20 09/20/18 06:00 Blood Pressure 142/64 09/20/18 06:00 O2 Sat by Pulse Oximetry (%) 96 09/19/18 09:40 Constitutional: Calm Eyes: No: Sclera Icterus Cardiovascular: Yes: Regular Rate and Rhythm Respiratory: Yes: CTA Bilaterally Gastrointestinal Inspection: No: Distention ...Auscultate: Yes: Normoactive Bowel Sounds ...Palpate: No: Hepatomegaly, Splenomegaly, Tenderness ...Percussion: No: Tympanitic ...Rectal Exam: Yes: Other (no external lesions, no masses, scant brown stool with blood tinge.) Edema: No (No LE edema) Neurological: Yes: Alert Labs: CBC, BMP 09/20/18 10:10 09/19/18 05:15 INR, PTT INR 1.16 (0.83-1.09) H 09/17/18 05:30 Hepatic Panel Total Bilirubin 0.7 mg/dL (0.2-1) 09/18/18 07:00 AST 17 U/L (15-37) 09/18/18 07:00 ALT 13 U/L (13-61) 09/18/18 07:00 Alkaline Phosphatase 52 U/L (45-117) 09/18/18 07:00 Albumin 2.8 g/dl (3.4-5.0) L 09/18/18 07:00 Problem List - Problems (1) Rectal bleed Assessment/Plan: S/p IR embolization for suspected cecal divertlcular bleed. with dwindling h/H and some blood tinge noted on Physical exam, propoesed EGD/colonoscopy to exclude any alternate bleeding sites and assess the proximal colon s/p embolization. Surgery should be on board given that the patient required embolization therapy npo after midnight Monitor H/H and for active bleeding Code(s): K62.5 - HEMORRHAGE OF ANUS AND RECTUM
--- NOTE | 2018-09-20 14:24 | PN ---
Teaching Attending Note Name of Resident: Alessandro Quintana ATTENDING PHYSICIAN STATEMENT I saw and evaluated the patient. I reviewed the resident's note and discussed the case with the resident. I agree with the resident's findings and plan as documented with exceptions below. SUBJECTIVE: Patient seen and examined. No nausea, vomiting, abdominal pain. No BM reported to me. OBJECTIVE: Vital Signs Period Temp Pulse Resp BP Sys/Gatica Pulse Ox Last 24 Hr 98 F-98.4 F 61-86 20-20 135-155/55-66 96 Intake & Output 09/17/18 09/18/18 09/19/18 09/20/18 23:59 23:59 23:59 23:59 Intake Total 1142 1800 2300 1000 Output Total 150 1900 Balance 992 -100 2300 1000 Weight 187 lb 192 lb 6.4 oz 192 lb 6.4 oz 190 lb General: lying in bed in no acute distress Chest: CTAB, no rales or wheezing Abdomen:Soft, NT, ND, positive bowel sounds Extremities: no edema Home Medications Medication Instructions Recorded Allopurinol [Zyloprim -] 100 mg PO ASDIR 09/16/18 Amlodipine Besylate 2.5 mg PO DAILY 09/16/18 Aspirin 81 mg PO DAILY 09/16/18 Atorvastatin Ca [Lipitor] 20 mg PO DAILY 09/16/18 Carvedilol [Coreg -] 25 mg PO BID 09/16/18 Donepezil HCl 10 mg PO DAILY 09/16/18 Duloxetine HCl 30 mg PO BID 09/16/18 Empagliflozin [Jardiance] 25 mg PO DAILY 09/16/18 Finasteride 5 mg PO HS 09/16/18 Glipizide 10 mg PO BID 09/16/18 Mupirocin 1 gm TP PRN 09/16/18 Ramipril 2.5 mg PO HS 09/16/18 Sitagliptin Phosphate [Januvia] 100 mg PO DAILY 09/16/18 Tamsulosin HCl 0.4 mg PO HS 09/16/18 Active Medications Atorvastatin Calcium (Lipitor -) 20 mg PO HS [facility] Last Admin: 09/19/18 21:44 Dose: 20 mg Bacitracin (Bacitracin -) 1 applic TP DAILY [facility] Last Admin: 09/20/18 09:44 Dose: 1 applic Carvedilol (Coreg -) 25 mg PO BID [facility] Last Admin: 09/20/18 09:33 Dose: 25 mg Duloxetine HCl (Cymbalta -) 30 mg PO BID [facility] Last Admin: 09/20/18 09:33 Dose: 30 mg Finasteride (Proscar -) 5 mg PO HS [facility] Last Admin: 09/19/18 21:44 Dose: 5 mg Sodium Chloride (Normal Saline -) 1,000 mls @ 75 mls/hr IV ASDIR [facility] Last Admin: 09/19/18 09:49 Dose: Not Given Insulin Aspart (Novolog Vial Sliding Scale -) 1 vial SQ Q6HPO [facility]; Protocol Last Admin: 09/20/18 12:56 Dose: Not Given Pantoprazole Sodium (Protonix -) 40 mg PO DAILY [facility] Last Admin: 09/20/18 09:34 Dose: 40 mg Laboratory Results - last 24 hr 09/16/18 09/19/18 09/19/18 13:57 17:43 21:51 WBC RBC Hgb Hct MCV MCH MCHC RDW Plt Count MPV POC Glucometer 185 171 Crossmatch See Detail 09/20/18 09/20/18 09/20/18 06:05 10:10 12:56 WBC 9.4 RBC 2.56 L Hgb 8.1 L Hct 23.3 L MCV 90.8 MCH 31.5 MCHC 34.6 RDW 13.8 Plt Count 130 L MPV 8.8 POC Glucometer 145 195 Crossmatch Microbiology 09/16/18 17:20 Urine - Urine Clean Catch Urine Culture - Final Staphylococcus Epidermidis ASSESSMENT AND PLAN: 78 yom with Alzheimer's dementia, hypertension, hyperlipidemia, diabetes mellitus, renal CA (S/P right nephrectomy) gout, spinal stenosis, and right retinal tear. CVA admitted with near syncope and GI bleed -Acute lower GI bleed, likely diverticular, r/o AVM, mass -Near syncope, likely from above -Elevated troponin, suspect demand medicated type II NSTEMI from above -Staph epidermidis bacteruria, suspect contamination (neg urinalysis) -HTN -HLD -Alzheimer's dementia -NIDDM -Renal Ca s/p right nephrectomy with CKD stage II-III -Gout -Spinal stenosis -CVA -RIght retinal tear Plan: s/p IR guided embolization. H/h drifting down. s/p 1 unit PRBC 09/19. Monitor h/h. GI input noted. Plan for EGD/colonoscopy in AM. Bowel prep Continue PPI. Clears, npo after midnight. Taper IVF as tolerates diet well. Continue coreg. Hold amlodipine/ramipril for now. Renal function stable post contrast, trend for now. trop flat, 2D echo with no concerns. Will need outpatient cardiology follow up and further testing once bleed concerns have resolved. Hold ASA. Continue statin. CT head neg. Continue donepezil. DVTPPX SCDs Code status Full Dispo PT eval noted, for SNF. Discussed with CM Plan for d/c to SNF In 48 hours post EGD/colonoscopy if stable, and disposition arranged. Discussed with nursing.
--- NOTE | 2018-09-20 15:38 | PN ---
Physical Exam: SUBJECTIVE: Patient seen and examined no new issues overnight. no bleeding perrectum overnight OBJECTIVE: Vital Signs Period Temp Pulse Resp BP Sys/Gatica Pulse Ox Last 24 Hr 97.9 F-98.4 F 58-86 20-20 135-155/55-69 96 GENERAL: Awake, alert, and fully oriented, in no acute distress. HEAD: Normal with no signs of trauma. EYES: Pupils equal, round and reactive to light, extraocular movements intact, sclera anicteric, conjunctiva clear. No lid lag. EARS, NOSE, THROAT: Ears normal, nares patent, oropharynx clear without exudates. Moist mucous membranes. NECK: Normal range of motion, supple without lymphadenopathy, JVD, or masses. LUNGS: Breath sounds equal, clear to auscultation bilaterally. No wheezes, and no crackles. No accessory muscle use. HEART: Regular rate and rhythm, normal S1 and S2 . ABDOMEN: Soft, nontender, not distended, normoactive bowel sounds, no guarding, no rebound, no masses. Rectal exam no mass palpated. MUSCULOSKELETAL: Normal range of motion at all joints. No bony deformities or tenderness. UPPER EXTREMITIES: 2+ pulses, warm, well-perfused. LOWER EXTREMITIES: 2+ pulses, warm, well-perfused. No calf tenderness. PSYCHIATRIC: Cooperative. Good eye contact. SKIN: Warm, dry, normal Laboratory Results - last 24 hr 09/16/18 09/19/18 09/19/18 13:57 17:43 21:51 WBC RBC Hgb Hct MCV MCH MCHC RDW Plt Count MPV POC Glucometer 185 171 Crossmatch See Detail 09/20/18 09/20/18 09/20/18 06:05 10:10 12:56 WBC 9.4 RBC 2.56 L Hgb 8.1 L Hct 23.3 L MCV 90.8 MCH 31.5 MCHC 34.6 RDW 13.8 Plt Count 130 L MPV 8.8 POC Glucometer 145 195 Crossmatch Active Medications Generic Name Dose Route Start Last Admin Trade Name Freq PRN Reason Stop Dose Admin Atorvastatin Calcium 20 mg 09/19/18 22:00 09/19/18 21:44 Lipitor - PO 20 mg HS [facility] Administration Bacitracin 1 applic 09/19/18 10:00 09/20/18 09:44 Bacitracin - TP 1 applic DAILY [facility] Administration Carvedilol 25 mg 09/19/18 10:00 09/20/18 09:33 Coreg - PO 25 mg BID [facility] Administration Duloxetine HCl 30 mg 09/19/18 10:00 09/20/18 09:33 Cymbalta - PO 30 mg BID [facility] Administration Finasteride 5 mg 09/19/18 22:00 09/19/18 21:44 Proscar - PO 5 mg HS [facility] Administration Sodium Chloride 1,000 mls @ 75 mls/hr 09/19/18 07:46 09/19/18 09:49 Normal Saline - IV Not Given ASDIR [facility] Insulin Aspart 1 vial 09/19/18 12:00 09/20/18 12:56 Novolog Vial Sliding Scale - SQ Not Given Q6HPO [facility] Protocol Pantoprazole Sodium 40 mg 09/19/18 10:00 09/20/18 09:34 Protonix - PO 40 mg DAILY [facility] Administration ASSESSMENT/PLAN:78 yom with Alzheimer's dementia, hypertension, hyperlipidemia, diabetes mellitus, renal CA (S/P right nephrectomy) gout, spinal stenosis, and right retinal tear. CVA admitted with near syncope and GI bleed -Acute GI bleed, suspected Lower GI, diverticular bleed high on differential, r/ o mass/AVM, low suspicion for Upper GI bleed two IV canula no 18. got IR guided embolisation protonix 40 daily IV fluid 75 ml/hr gi consult npo after midnight on clear liquid going for scope tomorrow. -Near syncope, likely from above -HTN on coreg -HLD continue lipitor 20 - Alzheimer's dementia - NIDDM BGM insulin sliding scale -Renal Ca s/p right nephrectom -Gout on allopurinol hold for today -h/o CVA on aspirin. but hold for now fluid: ns 75ml/hr electrolyte:repeat in am nutrition; clear liquid dvt peo; scd gi pro: protonix daily dispo: med surg . pt full code Visit type - Emergency Visit Emergency Visit: Yes ED Registration Date: 09/16/18 Care time: The patient presented to the Emergency Department on the above date and was hospitalized for further evaluation of their emergent condition. - New Patient This patient is new to me today: No - Critical Care Critical Care patient: No
[2018-09-20 16:57] LABS: HEMATOCRIT 25.8 % (35.4-49); HEMOGLOBIN 9.1 GM/dL (11.7-16.9); MCH 32.2 pg (25.7-33.7); MCHC 35.3 g/dl (32.0-35.9); MEAN CELL VOLUME 91.3 fl (80-96); MEAN PLT VOLUME 9.2 fl (7.5-11.1); PLATELET COUNT 138 K/MM3 (134-434); RBC 2.82 M/mm3 (4.00-5.60); RDW 13.8 % (11.9-15.9); WHITE BLOOD COUNT 9.2 K/mm3 (4.0-10.0)
[2018-09-20] MEDS ORDERED: PEG3350/SOD SULF,BICARB,CL/KCL 4,000 ML SOLN.RECON PO ONE (17:15)
[2018-09-20] MEDS: SODIUM CHLORIDE 1,000 ML IV SCH (21:18)
[2018-09-20] MEDS: FINASTERIDE 5 MG TABLET (FP) PO SCH (21:18)
[2018-09-20] MEDS: ATORVASTATIN CA 20 MG TABLET (FP) PO SCH (21:18)
[2018-09-21] MEDS: INSULIN SLIDING SCALE (NOVOLOG) 1 VIAL SQ SCH ×5 (00:42→23:57)
[2018-09-21 07:36] LABS: BASO % 0.7 % (0-2.0); EOS % 4.5 % (0-4.5); HEMATOCRIT 25.3 % (35.4-49); HEMOGLOBIN 8.8 GM/dL (11.7-16.9); LYMPH % 26.8 % (8-40); MCH 31.5 pg (25.7-33.7); MEAN CELL VOLUME 90.2 fl (80-96); MEAN PLT VOLUME 9.7 fl (7.5-11.1); MONO % 10.5 % (3.8-10.2); NEUT % 57.5 % (42.8-82.8); PLATELET COUNT 146 K/MM3 (134-434); RDW 13.9 % (11.9-15.9); WHITE BLOOD COUNT 9.4 K/mm3 (4.0-10.0)
[2018-09-21 08:11] LABS: ANION GAP 4 MMOL/L (8-16); BLOOD UREA NITROGEN 9 mg/dL (7-18); CALCIUM 7.7 mg/dL (8.5-10.1); CHLORIDE 104 mmol/L (98-107); CO2 34 mmol/L (21-32); CREATININE 1.1 mg/dL (0.55-1.3); GLUCOSE,RANDOM 138 mg/dL (74-106); SODIUM 143 mmol/L (136-145)
[2018-09-21 08:38] LABS: POTASSIUM 2.6 mmol/L (3.5-5.1)
[2018-09-21] MEDS ORDERED: POTASSIUM CHLORIDE ORAL LIQUID 20 MEQ/15 ML PO ONE (09:00)
--- NOTE | 2018-09-21 09:58 | PN ---
Teaching Attending Note Name of Resident: Alessandro Quintana ATTENDING PHYSICIAN STATEMENT I saw and evaluated the patient. I reviewed the resident's note and discussed the case with the resident. I agree with the resident's findings and plan as documented with exceptions below. SUBJECTIVE: Patient seen and examined, no further BM, no concerns of bleed overnight. OBJECTIVE: Vital Signs Period Temp Pulse Resp BP Sys/Gatica Pulse Ox Last 24 Hr 97.9 F-98.7 F 58-79 18-20 135-186/55-75 Intake & Output 09/18/18 09/19/18 09/20/18 09/21/18 23:59 23:59 23:59 23:59 Intake Total 1800 2300 4150 250 Output Total 1900 Balance -100 2300 4150 250 Weight 192 lb 6.4 oz 192 lb 6.4 oz 190 lb 191 lb 6 oz General: sitting in bed in no acute distress Chest: CTAB, no rales or wheezing Abdomen:soft, NT, ND Extremities: no edema Home Medications Medication Instructions Recorded Allopurinol [Zyloprim -] 100 mg PO ASDIR 09/16/18 Amlodipine Besylate 2.5 mg PO DAILY 09/16/18 Aspirin 81 mg PO DAILY 09/16/18 Atorvastatin Ca [Lipitor] 20 mg PO DAILY 09/16/18 Carvedilol [Coreg -] 25 mg PO BID 09/16/18 Donepezil HCl 10 mg PO DAILY 09/16/18 Duloxetine HCl 30 mg PO BID 09/16/18 Empagliflozin [Jardiance] 25 mg PO DAILY 09/16/18 Finasteride 5 mg PO HS 09/16/18 Glipizide 10 mg PO BID 09/16/18 Mupirocin 1 gm TP PRN 09/16/18 Ramipril 2.5 mg PO HS 09/16/18 Sitagliptin Phosphate [Januvia] 100 mg PO DAILY 09/16/18 Tamsulosin HCl 0.4 mg PO HS 09/16/18 Active Medications Amlodipine Besylate (Norvasc -) 2.5 mg PO DAILY [facility] Atorvastatin Calcium (Lipitor -) 20 mg PO HS [facility] Last Admin: 09/20/18 21:18 Dose: 20 mg Bacitracin (Bacitracin -) 1 applic TP DAILY [facility] Last Admin: 09/20/18 09:44 Dose: 1 applic Carvedilol (Coreg -) 25 mg PO BID [facility] Last Admin: 09/20/18 21:18 Dose: 25 mg Duloxetine HCl (Cymbalta -) 30 mg PO BID [facility] Last Admin: 09/20/18 21:18 Dose: 30 mg Finasteride (Proscar -) 5 mg PO HS [facility] Last Admin: 09/20/18 21:18 Dose: 5 mg Sodium Chloride (Normal Saline -) 1,000 mls @ 75 mls/hr IV ASDIR [facility] Last Admin: 09/20/18 21:18 Dose: 75 mls/hr Potassium Chloride (Potassium Chloride 10 Meq Premix Ivpb -) 10 meq in 100 mls @ 100 mls/hr IVPB Q60M [facility] Stop: 09/21/18 11:59 Insulin Aspart (Novolog Vial Sliding Scale -) 1 vial SQ Q6HPO [facility]; Protocol Last Admin: 09/21/18 06:14 Dose: Not Given Pantoprazole Sodium (Protonix -) 40 mg PO DAILY [facility] Last Admin: 09/20/18 09:34 Dose: 40 mg Laboratory Results - last 24 hr 09/20/18 09/20/18 09/20/18 10:10 12:56 16:30 WBC 9.4 9.2 RBC 2.56 L 2.82 L Hgb 8.1 L 9.1 L Hct 23.3 L 25.8 L MCV 90.8 91.3 MCH 31.5 32.2 MCHC 34.6 35.3 RDW 13.8 13.8 Plt Count 130 L 138 MPV 8.8 9.2 Absolute Neuts (auto) Neutrophils % Lymphocytes % Monocytes % Eosinophils % Basophils % Nucleated RBC % Sodium Potassium Chloride Carbon Dioxide Anion Gap BUN Creatinine Creat Clearance w eGFR POC Glucometer 195 Random Glucose Calcium 09/20/18 09/20/18 09/21/18 17:55 21:24 05:30 WBC 9.4 RBC 2.80 L Hgb 8.8 L Hct 25.3 L MCV 90.2 MCH 31.5 MCHC 35.0 RDW 13.9 Plt Count 146 MPV 9.7 Absolute Neuts (auto) 5.4 Neutrophils % 57.5 Lymphocytes % 26.8 Monocytes % 10.5 H Eosinophils % 4.5 Basophils % 0.7 Nucleated RBC % 0 Sodium Potassium Chloride Carbon Dioxide Anion Gap BUN Creatinine Creat Clearance w eGFR POC Glucometer 267 162 Random Glucose Calcium 09/21/18 09/21/18 05:30 05:54 WBC RBC Hgb Hct MCV MCH MCHC RDW Plt Count MPV Absolute Neuts (auto) Neutrophils % Lymphocytes % Monocytes % Eosinophils % Basophils % Nucleated RBC % Sodium 143 Potassium 2.6 L* Chloride 104 Carbon Dioxide 34 H Anion Gap 4 L BUN 9 Creatinine 1.1 Creat Clearance w eGFR > 60 POC Glucometer 145 Random Glucose 138 H Calcium 7.7 L Microbiology 09/16/18 17:20 Urine - Urine Clean Catch Urine Culture - Final Staphylococcus Epidermidis ASSESSMENT AND PLAN: 78 yom with Alzheimer's dementia, hypertension, hyperlipidemia, diabetes mellitus, renal CA (S/P right nephrectomy) gout, spinal stenosis, and right retinal tear. CVA admitted with near syncope and GI bleed -Acute lower GI bleed, likely diverticular, r/o AVM, mass,s/p IR guided embolization -Near syncope, likely from above -Elevated troponin, suspect demand medicated type II NSTEMI from above -Staph epidermidis bacteruria, suspect contamination (neg urinalysis) -Severe hypokalemia -HTN -HLD -Alzheimer's dementia -NIDDM -Renal Ca s/p right nephrectomy with CKD stage II-III -Gout -Spinal stenosis -CVA -RIght retinal tear -Suicidal ideation Plan: s/p IR guided embolization. s/p 1 unit PRBC 09/19. h/h stable, no gross evidence of bleed. Discussed with Dr. Bradshaw, repeat CBC later today. FOllow up with GI for plans for endoscopy. Continue PPI. Taper IVF as tolerates diet well. Replete K Continue Coreg. Resume amlodipine. Hold ramipril for now. Renal function stable post contrast, trend for now. Trop flat, 2D echo with no concerns. Will need outpatient cardiology follow up and further testing once bleed concerns have resolved. ASA on hold, continue statin. CT head neg. Continue donepezil. DVTPPX SCDs Code status Full Dispo PT eval noted, for SNF. Discussed with CM Plan for d/c to SNF pending GI work up and clinical improvement. Discussed with nursing and Dr. Bradshaw.
[2018-09-21] MEDS: KCL 10 MEQ IVPB 10 MEQ/100 ML INFUS.BAG IVPB SCH ×3 (10:25→13:02)
[2018-09-21] MEDS: CARVEDILOL 25 MG TABLET (FP) PO SCH ×2 (10:26→21:00)
[2018-09-21] MEDS: PANTOPRAZOLE 40 MG TABLET (FP) PO SCH (10:26)
[2018-09-21] MEDS: DULoxetine HCL 30 MG CAPSULE.DR (FP) PO SCH ×2 (10:26→21:00)
[2018-09-21] MEDS: amLODIPine BESYLATE 2.5 MG TABLET (FP) PO SCH (10:26)
[2018-09-21] MEDS: BACITRACIN 15 GM TUBE TOPICAL OINTMENT TP SCH (10:32)
--- NOTE | 2018-09-21 12:38 | PN ---
Physical Exam: SUBJECTIVE: Patient seen and examined no new issues overnight. HB 8.8 no bleeding per rectum overnight OBJECTIVE: Vital Signs Period Temp Pulse Resp BP Sys/Gatica Pulse Ox Last 24 Hr 97.9 F-98.7 F 58-79 18-20 146-186/69-75 GENERAL: Awake, alert, and fully oriented, in no acute distress. HEAD: Normal with no signs of trauma. EYES: Pupils equal, round and reactive to light, extraocular movements intact, sclera anicteric, conjunctiva clear. No lid lag. EARS, NOSE, THROAT: Ears normal, nares patent, oropharynx clear without exudates. Moist mucous membranes. NECK: Normal range of motion, supple without lymphadenopathy, JVD, or masses. LUNGS: Breath sounds equal, clear to auscultation bilaterally. No wheezes, and no crackles. No accessory muscle use. HEART: Regular rate and rhythm, normal S1 and S2 . ABDOMEN: Soft, nontender, not distended, normoactive bowel sounds, no guarding, no rebound, no masses. Rectal exam no mass palpated. MUSCULOSKELETAL: Normal range of motion at all joints. No bony deformities or tenderness. UPPER EXTREMITIES: 2+ pulses, warm, well-perfused. LOWER EXTREMITIES: 2+ pulses, warm, well-perfused. No calf tenderness. PSYCHIATRIC: Cooperative. Good eye contact. SKIN: Warm, dry, normal Laboratory Results - last 24 hr 09/20/18 09/20/18 09/20/18 12:56 16:30 17:55 WBC 9.2 RBC 2.82 L Hgb 9.1 L Hct 25.8 L MCV 91.3 MCH 32.2 MCHC 35.3 RDW 13.8 Plt Count 138 MPV 9.2 Absolute Neuts (auto) Neutrophils % Lymphocytes % Monocytes % Eosinophils % Basophils % Nucleated RBC % Sodium Potassium Chloride Carbon Dioxide Anion Gap BUN Creatinine Creat Clearance w eGFR POC Glucometer 195 267 Random Glucose Calcium 09/20/18 09/21/18 09/21/18 21:24 05:30 05:30 WBC 9.4 RBC 2.80 L Hgb 8.8 L Hct 25.3 L MCV 90.2 MCH 31.5 MCHC 35.0 RDW 13.9 Plt Count 146 MPV 9.7 Absolute Neuts (auto) 5.4 Neutrophils % 57.5 Lymphocytes % 26.8 Monocytes % 10.5 H Eosinophils % 4.5 Basophils % 0.7 Nucleated RBC % 0 Sodium 143 Potassium 2.6 L* Chloride 104 Carbon Dioxide 34 H Anion Gap 4 L BUN 9 Creatinine 1.1 Creat Clearance w eGFR > 60 POC Glucometer 162 Random Glucose 138 H Calcium 7.7 L 09/21/18 09/21/18 05:54 11:26 WBC RBC Hgb Hct MCV MCH MCHC RDW Plt Count MPV Absolute Neuts (auto) Neutrophils % Lymphocytes % Monocytes % Eosinophils % Basophils % Nucleated RBC % Sodium Potassium Chloride Carbon Dioxide Anion Gap BUN Creatinine Creat Clearance w eGFR POC Glucometer 145 170 Random Glucose Calcium Active Medications Generic Name Dose Route Start Last Admin Trade Name Freq PRN Reason Stop Dose Admin Amlodipine Besylate 2.5 mg 09/21/18 10:00 09/21/18 10:26 Norvasc - PO 2.5 mg DAILY [facility] Administration Atorvastatin Calcium 20 mg 09/19/18 22:00 09/20/18 21:18 Lipitor - PO 20 mg HS [facility] Administration Bacitracin 1 applic 09/19/18 10:00 09/21/18 10:32 Bacitracin - TP 1 applic DAILY [facility] Administration Carvedilol 25 mg 09/19/18 10:00 09/21/18 10:26 Coreg - PO 25 mg BID [facility] Administration Duloxetine HCl 30 mg 09/19/18 10:00 09/21/18 10:26 Cymbalta - PO 30 mg BID [facility] Administration Finasteride 5 mg 09/19/18 22:00 09/20/18 21:18 Proscar - PO 5 mg HS [facility] Administration Sodium Chloride 1,000 mls @ 75 mls/hr 09/19/18 07:46 09/20/18 21:18 Normal Saline - IV 75 mls/hr ASDIR [facility] Administration Insulin Aspart 1 vial 09/19/18 12:00 09/21/18 06:14 Novolog Vial Sliding Scale - SQ Not Given Q6HPO [facility] Protocol Pantoprazole Sodium 40 mg 09/19/18 10:00 09/21/18 10:26 Protonix - PO 40 mg DAILY [facility] Administration ASSESSMENT/PLAN:8 yom with Alzheimer's dementia, hypertension, hyperlipidemia, diabetes mellitus, renal CA (S/P right nephrectomy) gout, spinal stenosis, and right retinal tear. CVA admitted with near syncope and GI bleed -Acute GI bleed, suspected Lower GI, diverticular bleed high on differential, r/ o mass/AVM, low suspicion for Upper GI bleed no bleeding overnigt. Hb stable two IV canula no 18. got IR guided embolisation: protonix 40 daily IV fluid 75 ml/hr npo for now GI on case repeat hb at 1 pm Hypokalemia replete will check k at 1 pm - Near syncope, likely from above -HTN on coreg amlodipie 2.5mg daily -HLD continue lipitor 20 - Alzheimer's dementia - NIDDM BGM insulin sliding scale -Renal Ca s/p right nephrectom -Gout on allopurinol hold for today -h/o CVA on aspirin. but hold for now fluid: ns 75ml/hr electrolyte:repeat in am nutrition; clear liquid dvt peo; scd gi pro: protonix daily dispo: med surg . pt full code Visit type - Emergency Visit Emergency Visit: Yes ED Registration Date: 09/16/18 Care time: The patient presented to the Emergency Department on the above date and was hospitalized for further evaluation of their emergent condition. - New Patient This patient is new to me today: No - Critical Care Critical Care patient: No
[2018-09-21 13:07] LABS: HEMATOCRIT 27.4 % (35.4-49); HEMOGLOBIN 9.7 GM/dL (11.7-16.9); MCH 32.1 pg (25.7-33.7); MCHC 35.3 g/dl (32.0-35.9); MEAN CELL VOLUME 90.8 fl (80-96); MEAN PLT VOLUME 9.3 fl (7.5-11.1); PLATELET COUNT 157 K/MM3 (134-434); RBC 3.01 M/mm3 (4.00-5.60); RDW 13.9 % (11.9-15.9)
--- NOTE | 2018-09-21 14:10 | PN ---
GI Progress Note Subjective: No overt bleeding No abdominal pain States feeling well and is hungry - Objective Vital Signs: Vital Signs Temperature 98.7 F 09/21/18 06:00 Pulse Rate 69 09/21/18 06:00 Respiratory Rate 20 09/21/18 06:00 Blood Pressure 186/75 H 09/21/18 06:00 O2 Sat by Pulse Oximetry (%) 96 09/20/18 09:00 Constitutional: Calm Eyes: No: Sclera Icterus Cardiovascular: Yes: Regular Rate and Rhythm Respiratory: Yes: CTA Bilaterally Gastrointestinal Inspection: No: Distention ...Auscultate: Yes: Normoactive Bowel Sounds ...Palpate: No: Hepatomegaly, Splenomegaly, Tenderness Edema: No (No LE edema) Neurological: Yes: Alert Labs: CBC, BMP 09/21/18 12:40 09/21/18 13:08 INR, PTT INR 1.16 (0.83-1.09) H 09/17/18 05:30 Problem List - Problems (1) Rectal bleed Assessment/Plan: No further bleeding. Would rather defer colonoscopy at this time to avoid barotrauma given recent embolization therapy to the cecum. If overt bleeding recurs then that course of action would nbeed to be considered Otherwise: Advance diet Iron supplementation Outpatient follow-up to arrange follow-up colonoscopy if clinical course allows Code(s): K62.5 - HEMORRHAGE OF ANUS AND RECTUM
[2018-09-21 15:16] VITALS: BMI 24.5
[2018-09-21] MEDS: ATORVASTATIN CA 20 MG TABLET (FP) PO SCH (21:00)
[2018-09-21] MEDS: FINASTERIDE 5 MG TABLET (FP) PO SCH (21:00)
[2018-09-22] MEDS: INSULIN SLIDING SCALE (NOVOLOG) 1 VIAL SQ SCH ×3 (06:10→17:35)
[2018-09-22] MEDS: SODIUM CHLORIDE 1,000 ML IV SCH ×2 (06:29→09:17)
[2018-09-22 06:52] LABS: BASO % 0.6 % (0-2.0); EOS % 3.6 % (0-4.5); HEMATOCRIT 25.8 % (35.4-49); HEMOGLOBIN 9.1 GM/dL (11.7-16.9); LYMPH % 24.4 % (8-40); MCH 31.7 pg (25.7-33.7); MEAN CELL VOLUME 90.4 fl (80-96); MEAN PLT VOLUME 9.3 fl (7.5-11.1); MONO % 10.1 % (3.8-10.2); NEUT % 61.3 % (42.8-82.8); PLATELET COUNT 159 K/MM3 (134-434); RBC 2.86 M/mm3 (4.00-5.60); RDW 13.8 % (11.9-15.9); WHITE BLOOD COUNT 10.3 K/mm3 (4.0-10.0)
[2018-09-22 07:21] LABS: ANION GAP 7 MMOL/L (8-16); BLOOD UREA NITROGEN 13 mg/dL (7-18); CHLORIDE 102 mmol/L (98-107); CO2 32 mmol/L (21-32); CREATININE 1.2 mg/dL (0.55-1.3); GLUCOSE,RANDOM 155 mg/dL (74-106); SODIUM 141 mmol/L (136-145)
[2018-09-22] MEDS ORDERED: POTASSIUM CHLORIDE ORAL LIQUID 20 MEQ/15 ML PO ONE ×2 (08:00→14:00)
[2018-09-22] MEDS: BACITRACIN 15 GM TUBE TOPICAL OINTMENT TP SCH (09:17)
[2018-09-22] MEDS: PANTOPRAZOLE 40 MG TABLET (FP) PO SCH (09:18)
[2018-09-22] MEDS: amLODIPine BESYLATE 2.5 MG TABLET (FP) PO SCH (09:18)
[2018-09-22] MEDS: DULoxetine HCL 30 MG CAPSULE.DR (FP) PO SCH ×2 (09:18→21:19)
[2018-09-22] MEDS: CARVEDILOL 25 MG TABLET (FP) PO SCH ×2 (09:18→21:19)
--- NOTE | 2018-09-22 11:18 | PN ---
Progress Note, Physician History of Present Illness: Pt seen/examined at bedside, feeling better, denies abdominal pain, n/v. Moving bowels, no blood. Tolerating po. - Current Medication List Current Medications: Active Medications Amlodipine Besylate (Norvasc -) 2.5 mg PO DAILY [facility] Last Admin: 09/22/18 09:18 Dose: 2.5 mg Atorvastatin Calcium (Lipitor -) 20 mg PO HS [facility] Last Admin: 09/21/18 21:00 Dose: 20 mg Bacitracin (Bacitracin -) 1 applic TP DAILY [facility] Last Admin: 09/22/18 09:17 Dose: 1 applic Carvedilol (Coreg -) 25 mg PO BID [facility] Last Admin: 09/22/18 09:18 Dose: 25 mg Duloxetine HCl (Cymbalta -) 30 mg PO BID [facility] Last Admin: 09/22/18 09:18 Dose: 30 mg Finasteride (Proscar -) 5 mg PO [facility] Last Admin: 09/21/18 21:00 Dose: 5 mg Sodium Chloride (Normal Saline -) 1,000 mls @ 75 mls/hr IV ASDIR [facility] Last Admin: 09/22/18 09:17 Dose: Not Given Insulin Aspart (Novolog Vial Sliding Scale -) 1 vial SQ Q6HPO [facility]; Protocol Last Admin: 09/22/18 06:10 Dose: Not Given Pantoprazole Sodium (Protonix -) 40 mg PO DAILY [facility] Last Admin: 09/22/18 09:18 Dose: 40 mg Potassium Chloride (Potassium Chloride Oral Liquid) 40 meq PO ONCE ONE Stop: 09/22/18 14:01 - Objective Vital Signs: Vital Signs Temperature 98.6 F 09/22/18 06:00 Pulse Rate 57 L 09/22/18 06:00 Respiratory Rate 20 09/22/18 06:00 Blood Pressure 168/73 09/22/18 06:00 O2 Sat by Pulse Oximetry (%) 96 09/21/18 22:30 Constitutional: Yes: Well Nourished, No Distress, Calm Cardiovascular: Yes: WNL, Regular Rate and Rhythm Respiratory: Yes: WNL, Regular, CTA Bilaterally Gastrointestinal: Yes: WNL, Normal Bowel Sounds, Soft, Other (Abd soft, nt, nd) Labs: CBC, BMP 09/22/18 05:40 09/22/18 05:40 INR, PTT INR 1.16 (0.83-1.09) H 09/17/18 05:30 Problem List - Problems (1) Rectal bleed Assessment/Plan: s/p CTA with extravasation seen in the cecum (likely diverticular) s/p IR embolization. Pt clinically improved, Hb stable with no further bleeding. Pt denies prior colonoscopy. -Recommend continue to closely monitor Hb and for further evidence of bleeding -Monitor and replete electrolytes as needed -Diet as tolerated -No urgent indication for colonoscopy currently as risks may outweigh potential benefits, however pending clinical course this can be pursued in 4-6 weeks once further clinically improved. -If further overt bleeding with acute drop in Hb in the interim please notify GI for possible more urgent intervention. Code(s): K62.5 - HEMORRHAGE OF ANUS AND RECTUM
--- NOTE | 2018-09-22 13:40 | DS ---
Physical Exam: SUBJECTIVE: Patient seen and examined no new events overnight. OBJECTIVE: Vital Signs Period Temp Pulse Resp BP Sys/Gatica Pulse Ox Last 24 Hr 98 F-98.6 F 57-65 20-20 153-168/65-73 96-96 PHYSICAL EXAM GENERAL: Awake, alert, in no acute distress. HEAD: Normal with no signs of trauma. NECK: Normal range of motion, supple without lymphadenopathy, JVD, or masses. LUNGS: Breath sounds equal, clear to auscultation bilaterally. No wheezes, and no crackles. No accessory muscle use. HEART: Regular rate and rhythm, normal S1 and S2 . ABDOMEN: Soft, nontender, not distended, normoactive bowel sounds, no guarding, no rebound, no masses. MUSCULOSKELETAL: Normal range of motion at all joints. No bony deformities or tenderness. UPPER EXTREMITIES: 2+ pulses, warm, well-perfused. LOWER EXTREMITIES: warm, well-perfused. No calf tenderness. PSYCHIATRIC: Cooperative. Good eye contact. SKIN: Warm, dry, Laboratory Results - last 24 hr LABS Laboratory Results - last 24 hr 09/16/18 09/21/18 09/21/18 13:57 13:08 17:02 WBC RBC Hgb Hct MCV MCH MCHC RDW Plt Count MPV Absolute Neuts (auto) Neutrophils % Lymphocytes % Monocytes % Eosinophils % Basophils % Nucleated RBC % Sodium Potassium 3.6 Chloride Carbon Dioxide Anion Gap BUN Creatinine Creat Clearance w eGFR POC Glucometer 260 Random Glucose Calcium Blood Type O POSITIVE Antibody Screen Negative Crossmatch See Detail 09/21/18 09/21/18 09/22/18 20:35 23:56 05:32 WBC RBC Hgb Hct MCV MCH MCHC RDW Plt Count MPV Absolute Neuts (auto) Neutrophils % Lymphocytes % Monocytes % Eosinophils % Basophils % Nucleated RBC % Sodium Potassium Chloride Carbon Dioxide Anion Gap BUN Creatinine Creat Clearance w eGFR POC Glucometer 195 208 155 Random Glucose Calcium Blood Type Antibody Screen Crossmatch 09/22/18 09/22/18 09/22/18 05:40 05:40 12:30 WBC 10.3 H RBC 2.86 L Hgb 9.1 L Hct 25.8 L MCV 90.4 MCH 31.7 MCHC 35.0 RDW 13.8 Plt Count 159 MPV 9.3 Absolute Neuts (auto) 6.3 Neutrophils % 61.3 Lymphocytes % 24.4 Monocytes % 10.1 Eosinophils % 3.6 Basophils % 0.6 Nucleated RBC % 0 Sodium 141 Potassium 3.0 L Chloride 102 Carbon Dioxide 32 Anion Gap 7 L BUN 13 Creatinine 1.2 Creat Clearance w eGFR 58.71 POC Glucometer 247 Random Glucose 155 H Calcium 8.0 L Blood Type Antibody Screen Crossmatch Clinical information given: evaluate for diverticular bleed Multiplanar, multiphase imaging was performed following the intravenous bolus administration of nonionic contrast in addition to noncontrast scanning. Oral contrast was not administered. On arterial and venous phase imaging note is made of intraluminal contrast extravasation within the medial aspect of the cecal lumen. No specific diverticulum are seen in that region. Diverticula are visualized scattered along the length of the colon. Slightly hyperdense fluid is seen within the length of the colon probably representing diluted blood. The remainder of the exam is as discussed on a noncontrast CT study performed 3 hours earlier the same date. Ankylosing spondylitis. Status post right nephrectomy. No definite CT evidence of residual recurrent neoplastic disease. Multiple left renal cortical cysts. The liver, spleen, pancreas and gallbladder demonstrate no discrete abnormality. No aortic aneurysm. No definite lymphadenopathy is seen. Stable bilateral adrenal adenomas as also visualized on a prior CT exam of 2015. Biochemical evaluation is suggested. Moderate to marked prostate enlargement. Dense atherosclerotic coronary artery calcifications. Impression: Contrast extravasation is seen within the cecal lumen consistent with localization of a focal bleeding site. The remainder of the exam is as discussed above. HOSPITAL COURSE: 78 y/o with pmh of htn, hld on aspirin , diverticulosis came to hospital with lower gi bleed. Pt states that he was going to bathroom when he got dizzy and sat down and fell like he had a bowel movement. PT called ems and in hospital found to have bright red blood per rectum. Pt states this is this first episode. Reports he is constipated and have hard stool and have to force. Denies pain in defication. Denies radiation oncology nurse diarrhoea, denies tinisus , denies loss of appetite, denies vomiting or blood in vomiting. Reports 25 pound weight loss since april. States never had colonoscopy. Denies alcohol. Reports smoking for 30 years stopped in 1988. Denies pain meds. In hospital pt has active bleed abd CTA abdomen and pelvis was done which showed bleedind. IR was consulted and pt underwent embolisation. Post embolisation his hb remianed stable. GI was consulted who advised to follow up with them in outpatient. Colonoscopy in hospital was deferred as pt has no bleeding after emboisation and to prevent barotrauma from colonoscopy. Pt need to follow up with GI after discharge to discuss about colonoscopy. Might need to have colonoscopy in 4-5 week once he is clinically improved. Pt was alos started on iron tablets and also got one unit of blood in hospital. Follow up with your pcp with in one week Follow up with Gastroentrologist Dr. More with in one week. You need to discuss about colonoscopy with your gastroentrologist. Follow up with your sawmill moulder operator. We have stopped your aspirin for now because of Bleeding. Please discuses with your pcp and gastroenrologist when can you resume it. We have stopped one of your blood pressure medicine ramipril. Please check your BP daily if it starts going up then consult your doctor to put you back on medicine. Check your blood sugar regularly and make a log. Present log to your doctor. Take all the other medications as you were taking it before. Get repeat cbc and bmp check with your pcp after 4-5 days. We have started you on iron pills. Fall risk precautions. If you develop nausea, vomiting, pain abdomen, bleeding per rectum, lightheadedness, dizziness then call doctor or go to hospital Date of Admission:09/16/18 Date of Discharge: 09/22/18 Minutes to complete discharge: 45 Discharge Summary Reason For Visit: SYNCOPE,RECTAL HEMORRHAGE Current Active Problems Alzheimer disease (Acute) BPH (benign prostatic hyperplasia) (Acute) DM type 2 (diabetes mellitus, type 2) (Acute) Gout (Acute) H/O malignant neoplasm of kidney (Acute) HLD (hyperlipidemia) (Acute) HTN (hypertension) (Acute) Rectal bleed (Acute) Syncope (Acute) Condition: Stable - Instructions Diet, Activity, Other Instructions: Follow up with your pcp with in one week Follow up with Gastroentrologist Dr. More with in one week. You need to discuss about colonoscopy with your gastroentrologist. Follow up with your sawmill moulder operator. We have stopped your aspirin for now because of Bleeding. Please discusss with your pcp and gastroenrologist when can you resume it. We have stopped one of your blood pressure medicine ramipril. Please check your BP daily if it starts going up then consult your doctor to put you back on medicine. Check your blood sugar regularly and make a log. Present log to your doctor. Take all the other medications as you were taking it before. Get repeat cbc and bmp check with your pcp after 4-5 days. We have started you on iron pills. Fall risk precautions. If you develop nausea, vomiting, pain abdomen, bleeding per rectum, lightheadedness, dizziness then call doctor or go to hospital Referrals: Joao Lee MD [Primary Care Provider] - 1 Week Donovan More MD [Staff Physician] - 1 Week Disposition: INTERMEDIATE FACILITY - Home Medications Comprehensive Discharge Medication List: Ambulatory Orders Allopurinol [Zyloprim -] 100 mg PO ASDIR 09/16/18 Amlodipine Besylate 2.5 mg PO DAILY 09/16/18 Atorvastatin Ca [Lipitor] 20 mg PO DAILY 09/16/18 Carvedilol [Coreg -] 25 mg PO BID 09/16/18 Donepezil HCl 10 mg PO DAILY 09/16/18 Duloxetine HCl 30 mg PO BID 09/16/18 Empagliflozin [Jardiance] 25 mg PO DAILY 09/16/18 Finasteride 5 mg PO HS 09/16/18 Glipizide 10 mg PO BID 09/16/18 Mupirocin 1 gm TP PRN 09/16/18 Sitagliptin Phosphate [Januvia] 100 mg PO DAILY 09/16/18 Tamsulosin HCl 0.4 mg PO HS 09/16/18 Ferrous Sulfate 325 mg PO DAILY #30 tablet 09/22/18 This patient is new to me today: No Emergency Visit: Yes ED Registration Date: 09/16/18 Care time: The patient presented to the Emergency Department on the above date and was hospitalized for further evaluation of their emergent condition. Critical Care patient: No - Discharge Referral Referred to [facility] No
[2018-09-22] MEDS ORDERED: SODIUM CHLORIDE 1,000 ML IV SCH (14:11)
--- NOTE | 2018-09-22 14:42 | PN ---
Physical Exam: SUBJECTIVE: Patient seen and examined we ayaka hold his dc for now as pt gets dizzy when he stand orthostatic supine 144/62, sitting 147/67. standing 100/55 we will continue with IV fluid OBJECTIVE: Vital Signs Period Temp Pulse Resp BP Sys/Gatica Pulse Ox Last 24 Hr 98 F-98.6 F 57-65 20-20 153-168/65-73 96-96 GENERAL: Awake, alert, and fully oriented, in no acute distress. HEAD: Normal with no signs of trauma. EARS, NOSE, THROAT: Moist mucous membranes. NECK: Normal range of motion, supple without lymphadenopathy, JVD, or masses. LUNGS: Breath sounds equal, clear to auscultation bilaterally. No wheezes, and no crackles. No accessory muscle use. HEART: Regular rate and rhythm, normal S1 and S2 . ABDOMEN: Soft, nontender, not distended, normoactive bowel sounds, no guarding, no rebound, no masses. Rectal exam no mass palpated. MUSCULOSKELETAL: Normal range of motion at all joints. No bony deformities or tenderness. UPPER EXTREMITIES: 2+ pulses, warm, well-perfused. LOWER EXTREMITIES: warm, well-perfused. No calf tenderness. PSYCHIATRIC: Cooperative. Good eye contact. SKIN: Warm, dry, normal Laboratory Results - last 24 hr 09/16/18 09/21/18 09/21/18 13:57 17:02 20:35 WBC RBC Hgb Hct MCV MCH MCHC RDW Plt Count MPV Absolute Neuts (auto) Neutrophils % Lymphocytes % Monocytes % Eosinophils % Basophils % Nucleated RBC % Sodium Potassium Chloride Carbon Dioxide Anion Gap BUN Creatinine Creat Clearance w eGFR POC Glucometer 260 195 Random Glucose Calcium Blood Type O POSITIVE Antibody Screen Negative Crossmatch See Detail 09/21/18 09/22/18 09/22/18 23:56 05:32 05:40 WBC 10.3 H RBC 2.86 L Hgb 9.1 L Hct 25.8 L MCV 90.4 MCH 31.7 MCHC 35.0 RDW 13.8 Plt Count 159 MPV 9.3 Absolute Neuts (auto) 6.3 Neutrophils % 61.3 Lymphocytes % 24.4 Monocytes % 10.1 Eosinophils % 3.6 Basophils % 0.6 Nucleated RBC % 0 Sodium Potassium Chloride Carbon Dioxide Anion Gap BUN Creatinine Creat Clearance w eGFR POC Glucometer 208 155 Random Glucose Calcium Blood Type Antibody Screen Crossmatch 09/22/18 09/22/18 05:40 12:30 WBC RBC Hgb Hct MCV MCH MCHC RDW Plt Count MPV Absolute Neuts (auto) Neutrophils % Lymphocytes % Monocytes % Eosinophils % Basophils % Nucleated RBC % Sodium 141 Potassium 3.0 L Chloride 102 Carbon Dioxide 32 Anion Gap 7 L BUN 13 Creatinine 1.2 Creat Clearance w eGFR 58.71 POC Glucometer 247 Random Glucose 155 H Calcium 8.0 L Blood Type Antibody Screen Crossmatch Active Medications Generic Name Dose Route Start Last Admin Trade Name Freq PRN Reason Stop Dose Admin Amlodipine Besylate 2.5 mg 09/23/18 10:00 Norvasc - PO DAILY ELEAZAR Atorvastatin Calcium 20 mg 09/19/18 22:00 09/21/18 21:00 Lipitor - PO 20 mg HS ELEAZAR Administration Bacitracin 1 applic 09/19/18 10:00 09/22/18 09:17 Bacitracin - TP 1 applic DAILY ELEAZAR Administration Carvedilol 25 mg 09/19/18 10:00 09/22/18 09:18 Coreg - PO 25 mg BID ELEAZAR Administration Duloxetine HCl 30 mg 09/19/18 10:00 09/22/18 09:18 Cymbalta - PO 30 mg BID ELEAZAR Administration Finasteride 5 mg 09/19/18 22:00 09/21/18 21:00 Proscar - PO 5 mg HS ELEAZAR Administration Sodium Chloride 1,000 mls @ 100 mls/hr 09/22/18 14:11 Normal Saline - IV ASDIR ELEAZAR Insulin Aspart 1 vial 09/19/18 12:00 09/22/18 12:31 Novolog Vial Sliding Scale - SQ 2 units Q6HPO ELEAZAR Administration Protocol Pantoprazole Sodium 40 mg 09/19/18 10:00 09/22/18 09:18 Protonix - PO 40 mg DAILY ELEAZAR Administration ASSESSMENT/PLAN: 78 yom with Alzheimer's dementia, hypertension, hyperlipidemia , diabetes mellitus, renal CA (S/P right nephrectomy) gout, spinal stenosis, and right retinal tear. CVA admitted with near syncope and GI bleed -Acute GI bleed, suspected Lower GI, diverticular bleed high on differential, r/ o mass/AVM, low suspicion for Upper GI bleed no bleeding overnigt. Hb stable two IV canula no 18. got IR guided embolisation: protonix 40 daily IV fluid 100 ml/hr because of orthostatic hypotension regular diet GI on case repeat hb tomorrow pt finished the whole diet without any trouble. Hypokalemia resolved - Near syncope, likely from above postural hypotension present; likley because of acute loss of blood. continue IV fluid. HTN on coreg amlodipie 2.5mg daily -HLD continue lipitor 20 - Alzheimer's dementia - NIDDM BGM insulin sliding scale -Renal Ca s/p right nephrectom -Gout on allopurinol hold for today -h/o CVA on aspirin. but hold for now fluid: ns 100ml/hr electrolyte:repeat in am nutrition; clear liquid dvt peo; scd gi pro: protonix daily dispo: med surg . pt full code 7 Visit type - Emergency Visit Emergency Visit: Yes ED Registration Date: 09/16/18 Care time: The patient presented to the Emergency Department on the above date and was hospitalized for further evaluation of their emergent condition. - New Patient This patient is new to me today: No - Critical Care Critical Care patient: No - Discharge Referral Referred to [facility] No
--- NOTE | 2018-09-22 15:10 | PN ---
Teaching Attending Note Name of Resident: Alessandro Quintana ATTENDING PHYSICIAN STATEMENT I saw and evaluated the patient. I reviewed the resident's note and discussed the case with the resident. I agree with the resident's findings and plan as documented. SUBJECTIVE: Mr Sheehan is without complaint. No cp, sob, n/v. OBJECTIVE: Last Vital Signs Temp Pulse Resp BP Pulse Ox 37.0 C 57 L 20 168/73 96 09/22/18 06:00 09/22/18 06:00 09/22/18 06:00 09/22/18 06:00 09/21/18 22:30 Gen: nad Pulm: ctab w/o w/r/r CV: rrr w/o m/r/g Abd: +bs, s/nt/nd Ext: no c/c/e CBC, BMP 09/22/18 05:40 09/22/18 05:40 ASSESSMENT AND PLAN: -patient was noted to complain of dizziness on standing today -blood pressure decreased and HR increased on standing -hydrate with IVF today -if improved, plan for discharge tomorrow to SNF Problem List - Problems (1) Orthostatic hypotension Code(s): I95.1 - ORTHOSTATIC HYPOTENSION (2) Alzheimer disease Code(s): G30.9 - ALZHEIMER'S DISEASE, UNSPECIFIED; F02.80 - DEMENTIA IN OTH DISEASES CLASSD ELSWHR W/O BEHAVRL DISTURB Qualifiers: Alzheimer's disease onset: unspecified onset (3) BPH (benign prostatic hyperplasia) Code(s): N40.0 - BENIGN PROSTATIC HYPERPLASIA WITHOUT LOWER URINRY TRACT SYMP Qualifiers: Lower urinary tract symptom presence: symptoms present Lower urinary tract symptom detail: nocturia Qualified Code(s): N40.1 - Benign prostatic hyperplasia with lower urinary tract symptoms; R35.1 - Nocturia (4) DM type 2 (diabetes mellitus, type 2) Code(s): E11.9 - TYPE 2 DIABETES MELLITUS WITHOUT COMPLICATIONS (5) Gout Code(s): M10.9 - GOUT, UNSPECIFIED (6) H/O malignant neoplasm of kidney Code(s): Z85.528 - PERSONAL HISTORY OF OTHER MALIGNANT NEOPLASM OF KIDNEY (7) HLD (hyperlipidemia) Code(s): E78.5 - HYPERLIPIDEMIA, UNSPECIFIED (8) HTN (hypertension) Code(s): I10 - ESSENTIAL (PRIMARY) HYPERTENSION Qualifiers: Hypertension type: essential hypertension Qualified Code(s): I10 - Essential (primary) hypertension (9) Rectal bleed Code(s): K62.5 - HEMORRHAGE OF ANUS AND RECTUM
[2018-09-22] MEDS: ATORVASTATIN CA 20 MG TABLET (FP) PO SCH (21:19)
[2018-09-22] MEDS: FINASTERIDE 5 MG TABLET (FP) PO SCH (22:26)
[2018-09-23 08:19] LABS: EOS % 3.6 % (0-4.5); HEMATOCRIT 26.9 % (35.4-49); HEMOGLOBIN 9.4 GM/dL (11.7-16.9); LYMPH % 24.2 % (8-40); MCH 31.7 pg (25.7-33.7); MCHC 34.9 g/dl (32.0-35.9); MEAN CELL VOLUME 90.8 fl (80-96); MEAN PLT VOLUME 9.2 fl (7.5-11.1); MONO % 9.8 % (3.8-10.2); NEUT % 61.4 % (42.8-82.8); PLATELET COUNT 173 K/MM3 (134-434); RBC 2.97 M/mm3 (4.00-5.60); WHITE BLOOD COUNT 10.2 K/mm3 (4.0-10.0)
[2018-09-23 08:52] LABS: ANION GAP 6 MMOL/L (8-16); BLOOD UREA NITROGEN 14 mg/dL (7-18); CALCIUM 8.4 mg/dL (8.5-10.1); CHLORIDE 105 mmol/L (98-107); CO2 31 mmol/L (21-32); CREATININE 1.2 mg/dL (0.55-1.3); GLUCOSE,RANDOM 163 mg/dL (74-106); POTASSIUM 3.2 mmol/L (3.5-5.1); SODIUM 142 mmol/L (136-145)
[2018-09-23] MEDS: INSULIN SLIDING SCALE (NOVOLOG) 1 VIAL SQ SCH ×2 (09:35→11:28)
[2018-09-23] MEDS: BACITRACIN 15 GM TUBE TOPICAL OINTMENT TP SCH (09:36)
[2018-09-23] MEDS: CARVEDILOL 25 MG TABLET (FP) PO SCH (09:37)
[2018-09-23] MEDS: DULoxetine HCL 30 MG CAPSULE.DR (FP) PO SCH (09:37)
[2018-09-23] MEDS: PANTOPRAZOLE 40 MG TABLET (FP) PO SCH (09:37)
[2018-09-23] MEDS ORDERED: POTASSIUM CHLORIDE ORAL LIQUID 20 MEQ/15 ML PO SCH (10:00)
[2018-09-23] MEDS ORDERED: amLODIPine BESYLATE 5 MG TABLET (FP) PO SCH (10:00)
[2018-09-23 12:38] VITALS: BP 146/78; PULSE 74; TEMP 98.3
--- NOTE | 2018-09-23 14:22 | PN ---
Physical Exam: SUBJECTIVE: Patient seen and examined non new events overnight no orthostatic hypotension in morning discussed with daughter in detail. ] OBJECTIVE: Vital Signs Period Temp Pulse Resp BP Sys/Gatica Pulse Ox Last 24 Hr 98 F-98.5 F 64-105 18-20 141-174/63-85 96-97 GENERAL: Awake, alert, in no acute distress. HEAD: Normal with no signs of trauma. NECK: Normal range of motion, supple without lymphadenopathy, JVD, or masses. LUNGS: Breath sounds equal, clear to auscultation bilaterally. No wheezes, and no crackles. No accessory muscle use. HEART: Regular rate and rhythm, normal S1 and S2 . ABDOMEN: Soft, nontender, not distended, normoactive bowel sounds, no guarding, no rebound, no masses. MUSCULOSKELETAL: Normal range of motion at all joints. No bony deformities or tenderness. UPPER EXTREMITIES: 2+ pulses, warm, well-perfused. LOWER EXTREMITIES: warm, well-perfused. No calf tenderness. PSYCHIATRIC: Cooperative. Good eye contact. Laboratory Results - last 24 hr 09/22/18 09/22/18 09/23/18 17:31 21:21 07:08 WBC 10.2 H RBC 2.97 L Hgb 9.4 L Hct 26.9 L MCV 90.8 MCH 31.7 MCHC 34.9 RDW 14.0 Plt Count 173 MPV 9.2 Absolute Neuts (auto) 6.3 Neutrophils % 61.4 Lymphocytes % 24.2 Monocytes % 9.8 Eosinophils % 3.6 Basophils % 1.0 Nucleated RBC % 0 Sodium Potassium Chloride Carbon Dioxide Anion Gap BUN Creatinine Creat Clearance w eGFR POC Glucometer 280 333 Random Glucose Calcium 09/23/18 09/23/18 07:08 11:25 WBC RBC Hgb Hct MCV MCH MCHC RDW Plt Count MPV Absolute Neuts (auto) Neutrophils % Lymphocytes % Monocytes % Eosinophils % Basophils % Nucleated RBC % Sodium 142 Potassium 3.2 L Chloride 105 Carbon Dioxide 31 Anion Gap 6 L BUN 14 Creatinine 1.2 Creat Clearance w eGFR 58.71 POC Glucometer 259 Random Glucose 163 H Calcium 8.4 L Active Medications Generic Name Dose Route Start Last Admin Trade Name Freq PRN Reason Stop Dose Admin Amlodipine Besylate 2.5 mg 09/23/18 10:00 09/23/18 09:37 Norvasc - PO 2.5 mg DAILY ELEAZAR Administration Atorvastatin Calcium 20 mg 09/19/18 22:00 09/22/18 21:19 Lipitor - PO 20 mg HS ELEAZAR Administration Bacitracin 1 applic 09/19/18 10:00 09/23/18 09:36 Bacitracin - TP 1 applic DAILY ELEAZAR Administration Carvedilol 25 mg 09/19/18 10:00 09/23/18 09:37 Coreg - PO 25 mg BID ELEAZAR Administration Duloxetine HCl 30 mg 09/19/18 10:00 09/23/18 09:37 Cymbalta - PO 30 mg BID ELEAZAR Administration Finasteride 5 mg 09/19/18 22:00 09/22/18 22:26 Proscar - PO 5 mg HS ELEAZAR Administration Sodium Chloride 1,000 mls @ 100 mls/hr 09/22/18 14:11 09/22/18 14:53 Normal Saline - IV 100 mls/hr ASDIR ELEAZAR Administration Insulin Aspart 1 vial 09/19/18 12:00 09/23/18 11:28 Novolog Vial Sliding Scale - SQ 4 units Q6HPO ELEAZAR Administration Protocol Pantoprazole Sodium 40 mg 09/19/18 10:00 09/23/18 09:37 Protonix - PO 40 mg DAILY ELEAZAR Administration Potassium Chloride 40 meq 09/23/18 10:00 09/23/18 09:37 Potassium Chloride Oral Liquid PO 09/23/18 22:01 40 meq BID ELEAZAR Administration ASSESSMENT/PLAN: 78 yom with Alzheimer's dementia, hypertension, hyperlipidemia , diabetes mellitus, renal CA (S/P right nephrectomy) gout, spinal stenosis, and right retinal tear. CVA admitted with near syncope and GI bleed -Acute GI bleed, suspected Lower GI, diverticular bleed high on differential, r/ o mass/AVM, low suspicion for Upper GI bleed no bleeding overnigt. Hb stable got IR guided embolisation: protonix 40 daily regular diet Hypokalemia resolved - Near syncope, likely from above postural hypotension resolved continue IV fluid. HTN on coreg amlodipie 2.5mg daily -HLD continue lipitor 20 - Alzheimer's dementia - NIDDM BGM insulin sliding scale -Renal Ca s/p right nephrectom -Gout on allopurinol hold for today -h/o CVA on aspirin. but hold for now fluid: ns 100ml/hr electrolyte:repeat in am nutrition; clear liquid dvt peo; scd gi pro: protonix daily dispo: med surg . pt full code Visit type - Emergency Visit Emergency Visit: Yes ED Registration Date: 09/16/18 Care time: The patient presented to the Emergency Department on the above date and was hospitalized for further evaluation of their emergent condition. - New Patient This patient is new to me today: No - Critical Care Critical Care patient: No
--- NOTE | 2018-09-23 15:05 | PN ---
Teaching Attending Note Name of Resident: Alessandro Quintana ATTENDING PHYSICIAN STATEMENT I saw and evaluated the patient. I reviewed the resident's note and discussed the case with the resident. I agree with the resident's findings and plan as documented. SUBJECTIVE: Mr Sheehan is without complaint today. Denies cp, sob, n/v. OBJECTIVE: Last Vital Signs Temp Pulse Resp BP Pulse Ox 36.8 C 85 20 141/85 97 09/23/18 10:00 09/23/18 10:26 09/23/18 10:00 09/23/18 10:09/23/18 09:00 Gen: nad Pulm: ctab w/o w/r/r CV: rrr w/o m/r/g Abd: +bs, s/nt/nd Ext: no c/c/e CBC, BMP 09/23/18 07:08 09/23/18 07:08 ASSESSMENT AND PLAN: -after 24 IVF, orthostatics resolved -safe for discharge to SNF Problem List - Problems (1) Orthostatic hypotension Code(s): I95.1 - ORTHOSTATIC HYPOTENSION (2) Alzheimer disease Code(s): G30.9 - ALZHEIMER'S DISEASE, UNSPECIFIED; F02.80 - DEMENTIA IN OTH DISEASES CLASSD ELSWHR W/O BEHAVRL DISTURB Qualifiers: Alzheimer's disease onset: unspecified onset (3) BPH (benign prostatic hyperplasia) Code(s): N40.0 - BENIGN PROSTATIC HYPERPLASIA WITHOUT LOWER URINRY TRACT SYMP Qualifiers: Lower urinary tract symptom presence: symptoms present Lower urinary tract symptom detail: nocturia Qualified Code(s): N40.1 - Benign prostatic hyperplasia with lower urinary tract symptoms; R35.1 - Nocturia (4) DM type 2 (diabetes mellitus, type 2) Code(s): E11.9 - TYPE 2 DIABETES MELLITUS WITHOUT COMPLICATIONS (5) Gout Code(s): M10.9 - GOUT, UNSPECIFIED (6) H/O malignant neoplasm of kidney Code(s): Z85.528 - PERSONAL HISTORY OF OTHER MALIGNANT NEOPLASM OF KIDNEY (7) HLD (hyperlipidemia) Code(s): E78.5 - HYPERLIPIDEMIA, UNSPECIFIED (8) HTN (hypertension) Code(s): I10 - ESSENTIAL (PRIMARY) HYPERTENSION Qualifiers: Hypertension type: essential hypertension Qualified Code(s): I10 - Essential (primary) hypertension (9) Rectal bleed Code(s): K62.5 - HEMORRHAGE OF ANUS AND RECTUM
== END 2018-09-23 15:19 | DRG 982 ==
LOC: JER 13:31 → JERBED 18:23 → JICU 21:31 → J4W 09-17 20:14 → J8W 09-19 12:03
PROVIDERS: ADMIT Hospitalist; ATTEND Internal Medicine
PROC: 04Q Lower Arteries, Repair (ICD-10-PCS; principal; 2018-09-16)
PROC: B414YZZ Fluoroscopy of Superior Mesenteric Artery using Other Contrast (ICD-10-PCS; 2018-09-16)
PROC: 30233N1 Transfusion of Nonautologous Red Blood Cells into Peripheral Vein, Percutaneous Approach (ICD-10-PCS; 2018-09-16)
DX: K57.31 Diverticulosis of large intestine without perforation or abscess with bleeding (principal); D62 Acute posthemorrhagic anemia; I24.8 Other forms of acute ischemic heart disease; R45.851 Suicidal ideations; E11.22 Type 2 diabetes mellitus with diabetic chronic kidney disease; I12.9 Hypertensive chronic kidney disease with stage 1 through stage 4 chronic kidney disease, or unspecified chronic kidney disease; N18.2 Chronic kidney disease, stage 2 (mild); E83.42 Hypomagnesemia; E87.6 Hypokalemia; G30.9 Alzheimer's disease, unspecified; Z79.4 Long term (current) use of insulin; F02.80 Dementia in other diseases classified elsewhere, unspecified severity, without behavioral disturbance, psychotic disturbance, mood disturbance, and anxiety; Z86.73 Personal history of transient ischemic attack (TIA), and cerebral infarction without residual deficits; M10.9 Gout, unspecified; Z85.528 Personal history of other malignant neoplasm of kidney; Z87.891 Personal history of nicotine dependence; Z90.5 Acquired absence of kidney; M48.00 Spinal stenosis, site unspecified; R00.1 Bradycardia, unspecified; N40.0 Benign prostatic hyperplasia without lower urinary tract symptoms; B95.7 Other staphylococcus as the cause of diseases classified elsewhere; I95.1 Orthostatic hypotension
CPT/HCPCS: 36415; 36430; 37244; 70450-TC; 74174-TC; 74176-TC; 80048; 80053; 81003; 81015; 82272; 82550; 82962; 83735; 84100; 84132; 84484; 85025; 85027; 85610; 85730; 86850; 86900; 86901; 86922; 87086; 87186; 93005; 93010; 93306-TC; 94761; 97116-GP; 97162-GP; 99283-25; 99285-25; C1769; C1887; C1894; J7030; P9038; P9058

== ENCOUNTER 2018-12-07 07:34 | Day surgery (SDC) | payer OTHER, MEDICARE ==
[2018-12-06 15:55] VITALS: BMI 24.3
[2018-12-07 10:47] VITALS: TEMP 97.8
[2018-12-07 11:34] VITALS: BP 169/76; PULSE 66
--- NOTE | 2018-12-08 15:03 | PATH ---
Surgical Pathology Report Patient Name: FABIO YI [facility] Rec. #: [id number] /Age/Gender: 1940 (Age: 78) / M Account: [id number] Location: ASU-ENDOSCOPY Taken: 12/07/2018 Received: 12/07/2018 Reported: 12/08/2018 Physicians: Tapan Francois D.O. Specimen(s) Received A: POLYPS PROXIMAL TRANSVERSE COLON B: POLYP PROXIMAL DESCENDING C: POLYP SIGMOID AT 25 CM D: POLYPS RECTAL SIGMOID AT 15 CM E: RECTAL POLYPS Clinical History Follow up rectal bleeding Postoperative diagnosis: Rectal polyps, diverticulosis, hemorrhoids Final Diagnosis A. PROXIMAL TRANSVERSE COLON, POLYPS, POLYPECTOMY: TUBULAR ADENOMA(S). B. PROXIMAL DESCENDING COLON, POLYP, POLYPECTOMY: TUBULOVILLOUS ADENOMA. C. SIGMOID AT 25 CM, POLYP, POLYPECTOMY: TUBULAR ADENOMA. D RECTAL SIGMOID AT 15 CM, POLYPS, POLYPECTOMY: HYPERPLASTIC POLYP(S). E. RECTAL POLYPS, POLYPECTOMY: HYPERPLASTIC POLYP(S). Electronically Signed Sandhya Paez M.D. Gross Description A. Received in formalin, labeled "polyps proximal transverse" are 3 messer, irregular portions of soft tissue ranging from 0.3-0.7 cm. in greatest dimension. The specimens are submitted in toto in one cassette. B. Received in formalin, labeled "polyp proximal descending colon" is a brown, polypoid portion of soft tissue measuring 0.8 cm. in greatest dimension. The specimen is submitted in toto in one cassette. C. Received in formalin labeled "polyp sigmoid at 25 cm," is a 0.8 x 0.7 x 0.6 cm messer, polypoid portion of soft tissue. The specimen is bisected and entirely submitted in one cassette. D. Received in formalin labeled "polyps rectal sigmoid at 15 cm," are 2 messer, polypoid portions of soft tissue measuring 0.5 and 0.8 cm in greatest dimension. The specimens are submitted in toto in one cassette. E. Received in formalin, labeled "rectal polyps" are 4 messer, irregular to polypoid portions of soft tissue ranging from 0.2-0.7 cm. in greatest dimension. The specimens are submitted in toto in one cassette. 12/07/201812/07/2018
== END 2018-12-07 11:57 | disposition home or self-care (01) ==
LOC: JASU-ENDO 07:34
PROVIDERS: ATTEND Internal Medicine Gastroenterology
PROC: 0DBL8ZX Excision of Transverse Colon, Via Natural or Artificial Opening Endoscopic, Diagnostic (ICD-10-PCS; 2018-12-07)
PROC: 0DBN8ZX Excision of Sigmoid Colon, Via Natural or Artificial Opening Endoscopic, Diagnostic (ICD-10-PCS; 2018-12-07)
PROC: 0DBP8ZX Excision of Rectum, Via Natural or Artificial Opening Endoscopic, Diagnostic (ICD-10-PCS; 2018-12-07)
PROC: 3E0H8GC Introduction of Other Therapeutic Substance into Lower GI, Via Natural or Artificial Opening Endoscopic (ICD-10-PCS; 2018-12-07)
PROC: 0DBM8ZX Excision of Descending Colon, Via Natural or Artificial Opening Endoscopic, Diagnostic (ICD-10-PCS; principal; 2018-12-07 09:00)
DX: K57.30 Diverticulosis of large intestine without perforation or abscess without bleeding (principal); K62.1 Rectal polyp; D12.4 Benign neoplasm of descending colon; D12.7 Benign neoplasm of rectosigmoid junction; D12.5 Benign neoplasm of sigmoid colon; D12.3 Benign neoplasm of transverse colon
CPT/HCPCS: 82962; 88305-TC

== ENCOUNTER 2019-04-01 14:20 | Emergency (ER) | payer OTHER, MEDICARE ==
[2019-04-01 14:40] VITALS: BP 137/80; PULSE 74; TEMP 97.8; BMI 26.9
--- NOTE | 2019-04-01 14:52 | PDOC ---
History of Present Illness - General Chief Complaint: Pain Stated Complaint: GROIN PAIN Time Seen by Provider: 04/01/19 14:35 History Source: Patient Exam Limitations: Dementia - History of Present Illness Travel History: No Initial Comments: 04/01/19 15:15 78y M hx of alzheimers, htn, hl, niddm, renal ca sp nephrectomy, spinal stenosis , hx of UTIs presents for evaluation of dysuria for the past few days. No associated n/v, abd pain, fever/chills/back pain. History lmited due to the pts memory. denies any cp, sob, paliptations, testicular pain. history provided primarly from the pts daugther who is bedside ROS: limited due to dementia, but denies any complaints GENERAL: The patient is awake, alert, and orietned x 1 HEAD: Normocephalic, atraumatic. EYES: extraocular movements intact, sclera anicteric, conjunctiva clear. ENT: Normal voice, Moist mucous membranes. NECK: Normal range of motion, supple LUNGS: Breath sounds equal, clear to auscultation bilaterally. No wheezes, no rhonchi, no rales. HEART: Regular rate and rhythm, normal S1 and S2 without murmur, rub or gallop. : +firm nontender 2x2x1 mass at base of penis on L, no nerythemadous, non indurated, non fluctuant, no testicular tenderness ABDOMEN: Soft, nontender, No guarding, no rebound. No CVA tenderness EXTREMITIES: Normal range of motion, no edema. NEUROLOGICAL: No facial assymetry, Normal speech, moiving all 4 extremities spontaneosly and symmetrically PSYCH: Normal mood, normal affect. SKIN: Warm, Dry, normal turgor, a/p suspect UTI unclear what his mass is on his groin will obtain US to further eval as pt only has 1 kidney will ck basic labs Past History - Past Medical History Allergies/Adverse Reactions: Allergies Allergy/AdvReac Type Severity Reaction Status Date / Time No Known Drug Allergies Allergy Verified 04/01/19 14:24 Home Medications: Ambulatory Orders Amlodipine Besylate 2.5 mg PO DAILY 04/01/19 Amlodipine Besylate 5 mg PO DAILY 04/01/19 Atorvastatin Ca [Lipitor] 20 mg PO HS 04/01/19 Carvedilol [Coreg -] 25 mg PO BID 04/01/19 Docusate Sodium [Colace -] 100 mg PO DAILY 04/01/19 Donepezil HCl 10 mg PO DAILY 04/01/19 Duloxetine HCl 30 mg PO BID 04/01/19 Empagliflozin [Jardiance] 25 mg PO DAILY 04/01/19 Ferrous Sulfate 325 mg PO DAILY 04/01/19 Glipizide 10 mg PO BID 04/01/19 Mupirocin Ointment [Bactroban] 1 applic TP TID 04/01/19 Nitrofurantoin Monohyd/M-Cryst [Macrobid -] 100 mg PO BID #10 capsule 04/01/19 Sitagliptin Phosphate [Januvia] 100 mg PO DAILY 04/01/19 Anemia: No Asthma: No Cancer: Yes (RENAL CANCER) Cardiac Disorders: No CVA: No COPD: No CHF: No Dementia: Yes Diabetes: Yes (Neuropathy) GI Disorders: Yes (Diverticulitis,) Disorders: Yes (H/O RENAL CANCER, S/P RIGHT NEPHRECTOMY) HTN: Yes Hypercholesterolemia: Yes Liver Disease: No Seizures: No Thyroid Disease: No - Surgical History Abdominal Surgery: No Appendectomy: No Cardiac Surgery: No Cholecystectomy: Yes Lung Surgery: Yes (bronchoscopy) Neurologic Surgery: No Orthopedic Surgery: Yes (RADIOFREQUENCY ABLATION) - Suicide/Smoking/Psychosocial Hx Smoking Status: Yes Smoking History: Unknown if ever smoked Have you smoked in the past 12 months: No Number of Cigarettes Smoked Daily: 20 If you are a former smoker, when did you quit?: 1989 Hx Alcohol Use: No Drug/Substance Use Hx: No (UNABLE TO OBTAIN) Substance Use Type: None Hx Substance Use Treatment: No Abd/GI Specific PMHX - Complaint Specific PMHX GERD: No GI Ulcer Disease: No *Physical Exam - Vital Signs Last Vital Signs Temp Pulse Resp BP Pulse Ox 97.8 F 74 18 137/80 99 04/01/19 14:20 04/01/19 14:20 04/01/19 14:20 04/01/19 14:20 04/01/19 14:20 ED Treatment Course - LABORATORY CBC & Chemistry Diagram: 04/01/19 15:20 04/01/19 15:18 - ADDITIONAL ORDERS Additional order review: Laboratory Results 04/01/19 14:49 Urine Color Yellow Urine Appearance Cloudy Urine pH 6.0 Urine Protein 2+ H Urine Glucose (UA) 3+ Urine Ketones Negative Urine Blood 2+ H Urine Nitrite Negative Urine Bilirubin Negative Urine Urobilinogen 0.2 Ur Leukocyte Esterase 1+ Medical Decision Making - Medical Decision Making 04/01/19 17:27 labs reviewed noted for mild mirela will have pt hydrate orally UA suggestive of UTI will give abx,prior ua sensitive to macrobid US noted for complex cystic mass will have pt fu urology for furrthe evaluation of this mass return precatuions were discussed I discussed the physical exam findings, ancillary test results and final diagnoses with the patient. I answered all of the patient's questions. The patient was satisfied with the care received and felt comfortable with the discharge plan and treatment plan. The patient will call their primary care physician within 24 hours to arrange follow-up and will return to the Emergency Department with any new, persistent or worsening symptoms. *DC/Admit/Observation/Transfer Diagnosis at time of Disposition: Left groin mass UTI (urinary tract infection) Qualifiers: Urinary tract infection type: site unspecified Hematuria presence: with hematuria Qualified Code(s): N39.0 - Urinary tract infection, site not specified - Discharge Dispostion Disposition: HOME Condition at time of disposition: Stable Decision to Admit order: No - Prescriptions Prescriptions: Nitrofurantoin Monohyd/M-Cryst [Macrobid -] 100 mg PO BID #10 capsule - Referrals Referrals: Joao Lee MD [Primary Care Provider] - Rashaad Mcfadden MD [Staff Physician] - - Patient Instructions Printed Discharge Instructions: DI for Urinary Tract Infection (UTI) Additional Instructions: Return to the emergency department immediately with ANY new, persistent or worsening symptoms including worsening abdominal pain, fevers, inability to tolerate oral intake, chest pain, shortness of breath or any other concerns. There was a mass found in your groin. Please follow up with a urolgist for further evaluation and workup. TAke the antibiotics as prescribed Stay well hydrated. You MUST call and follow up with your doctor tomorrow. Your emergency department visit is not complete without a followup with your doctor for reevaluation. Please make sure your doctor reviews the results of your emergency evaluation. Print Language: FRENCH - Post Discharge Activity
[2019-04-01 15:08] LABS: EPITHELIAL CELLS FEW /hpf
[2019-04-01 15:54] LABS: ALBUMIN 3.4 g/dl (3.4-5.0); CALCIUM 8.5 mg/dl (8.5-10); CREATININE 1.5 mg/dl (0.55-1.3); POTASSIUM 4.5 mmol/L (3.5-5.1); TOT PROT 6.1 g/dl (6.4-8.2)
[2019-04-01 16:26] LABS: HEMATOCRIT 41.1 % (35.4-49); HEMOGLOBIN 13.7 GM/dl (11.7-16.9); MCH 29.7 pg (25.7-33.7); MCHC 33.4 g/dl (32.0-35.9); MEAN CELL VOLUME 88.8 fl (80-96); MEAN PLT VOLUME 9.1 fl (7.5-11.1); PLATELET COUNT 253 K/MM3 (134-434); RBC 4.62 M/mm3 (4.00-5.60); RDW 13.5 % (11.9-15.9); WHITE BLOOD COUNT 11.6 K/mm3 (4.0-10.8)
[2019-04-01] MEDS ORDERED: NITROFURANTOIN MACROCRYSTAL 50 MG CAPSULE (FP) PO SCH (17:30)
[2019-04-01] MEDS ORDERED: NITROFURANTOIN MACROCRYSTAL 50 MG CAPSULE (FP) ONE (17:32)
== END 2019-04-01 17:30 | disposition home or self-care (01) ==
LOC: FER 14:20 → SUPCPDRO 14:20 → FER 17:30
DX: R22.9 Localized swelling, mass and lump, unspecified (principal); N39.0 Urinary tract infection, site not specified; I10 Essential (primary) hypertension; E78.5 Hyperlipidemia, unspecified; E11.9 Type 2 diabetes mellitus without complications; Z85.528 Personal history of other malignant neoplasm of kidney; Z90.5 Acquired absence of kidney
CPT/HCPCS: 36415; 76882-TC-RT-FY; 80053; 81003; 81015; 85027; 87077; 87086; 99285-25

== ENCOUNTER 2019-04-08 12:03 | Inpatient (IN) | payer OTHER, MEDICARE ==
[2019-04-08] MEDS ORDERED: PIPERACILLIN/TAZOB 2.25 GM 2.25 GM in DEXTROSE 5%-WATER - 50 ML IVPB ONE (12:39)
[2019-04-08] MEDS ORDERED: VANCOMYCIN 1 GM in D5W (PRE-DOCKED) 1,000 MG/250 ML IVPB ONE (12:40)
--- NOTE | 2019-04-08 12:54 | PDOC ---
History of Present Illness - General Chief Complaint: Blood Pressure Problem Stated Complaint: htn Time Seen by Provider: 04/08/19 12:06 History Source: Patient Exam Limitations: No Limitations - History of Present Illness Initial Comments: 04/08/19 12:43 78 yo male h/o htn DM HLD, bladder/ renal ca s/p nephrectomy here today for concerns of persistant groin pain and redness in inguinal region. pt was seen on 04/01 and evaluated for mass/ cystic lesion base penis, felt to be a cyst. today on evaluation at [facility] by dr florentino, he was concerned for increasing pain, increasing wbc, and elevated BP 200/100. pt does c/o groin inguinal pain and burning stinging pain on urination. pt was started on abx initially macrobid. on 04/01, switched to amxocicillin yesterday for culture growing GBS. no f/c no n /v. pain in groin is severe. no other comlaints. no cp no sob. no headache. no blurry vision. no change to behavior. additional history provided by pt daughter who is present. Past History - Past Medical History Allergies/Adverse Reactions: Allergies Allergy/AdvReac Type Severity Reaction Status Date / Time No Known Drug Allergies Allergy Verified 04/08/19 12:20 Home Medications: Ambulatory Orders Amlodipine Besylate 2.5 mg PO DAILY 04/01/19 Amlodipine Besylate 5 mg PO DAILY 04/01/19 Atorvastatin Ca [Lipitor] 20 mg PO DAILY 04/01/19 Carvedilol [Coreg -] 25 mg PO BID 04/01/19 Docusate Sodium [Colace -] 100 mg PO DAILY 04/01/19 Donepezil HCl 10 mg PO DAILY 04/01/19 Duloxetine HCl 30 mg PO BID 04/01/19 Empagliflozin [Jardiance] 25 mg PO DAILY 04/01/19 Ferrous Sulfate 325 mg PO DAILY 04/01/19 Glipizide 10 mg PO BID 04/01/19 Mupirocin Ointment [Bactroban] 1 applic TP TID 04/01/19 Sitagliptin Phosphate [Januvia] 100 mg PO DAILY 04/01/19 Allopurinol [Zyloprim -] 100 mg PO MOWEFR 04/08/19 Amoxicillin - [Amoxicillin 500mg Capsule -] 500 mg PO TID 04/08/19 Finasteride [Proscar] 5 mg PO HS 04/08/19 Anemia: No Asthma: No Cancer: Yes (RENAL CANCER) Cardiac Disorders: No CVA: No COPD: No CHF: No Dementia: Yes Diabetes: Yes (Neuropathy) GI Disorders: Yes (Diverticulitis,) Disorders: Yes (H/O RENAL CANCER, S/P RIGHT NEPHRECTOMY) HTN: Yes Hypercholesterolemia: Yes Liver Disease: No Seizures: No Thyroid Disease: No - Surgical History Abdominal Surgery: No Appendectomy: No Cardiac Surgery: No Cholecystectomy: Yes Lung Surgery: Yes (bronchoscopy) Neurologic Surgery: No Orthopedic Surgery: Yes (RADIOFREQUENCY ABLATION) - Suicide/Smoking/Psychosocial Hx Smoking Status: Yes Smoking History: Unknown if ever smoked Have you smoked in the past 12 months: No Number of Cigarettes Smoked Daily: 20 If you are a former smoker, when did you quit?: 1989 Information on smoking cessation initiated: No Hx Alcohol Use: No Drug/Substance Use Hx: No Substance Use Type: None Hx Substance Use Treatment: No Review of Systems - Review of Systems Constitutional: No: Chills, Diaphoresis, Fever HEENTM: No: Eye Pain Cardiac (ROS): No: Chest Pain *Physical Exam - Vital Signs Last Vital Signs Temp Pulse Resp BP Pulse Ox 98.1 F 65 20 157/76 98 04/08/19 12:04 04/08/19 12:04 04/08/19 12:04 04/08/19 12:04 04/08/19 12:04 - Physical Exam Comments: 04/08/19 12:54 awake alert lungs clear bilat heart rrr no mrg abd soft nt nd groin . inguinal skin erythema. breakdownn, moist, small satellite candidal like lesions , left side inner thigh with pustules. mild scrotal redness, and tenderness. buttock no skin changes, ext wwp. no edema. no calf tenderness. nuero moves all four ext, alet oriented x 2. Heart Score/ECG Review #1 ECG reviewed & interpreted by me at: 13:49 General ECG Interpretation: Sinus Rhythm, Normal Rate (60), Normal Intervals, No acute ischemic changes ED Treatment Course - LABORATORY CBC & Chemistry Diagram: 04/08/19 12:40 04/08/19 12:40 Medical Decision Making - Medical Decision Making 04/08/19 12:56 78 yo male h/o htn nephrectomy, ckd, DM here with inguinal candidiasis, and concerns for overlying superimposed bacterial infection. due to amount of pain and area of infection concerns for developement to fourners. plan iv abx, admit. topical antifungals. pain control. ua urien cultures. will d/w pt urologist. and pcp dr florentino. 04/08/19 13:[address] Wolfe, pcp dr florentino 04/08/19 13:58 d/w dr florentino, will admit to hospitalist. *DC/Admit/Observation/Transfer Diagnosis at time of Disposition: Candidiasis, Cellulitis - Discharge Dispostion Decision to Admit order: Yes - Referrals - Patient Instructions - Post Discharge Activity
[2019-04-08 13:10] LABS: BASO % 0.6 % (0-2.0); EOS % 2.7 % (0-4.5); HEMATOCRIT 39.8 % (35.4-49); HEMOGLOBIN 13.3 GM/dl (11.7-16.9); LYMPH % 15.3 % (8-40); MCH 29.5 pg (25.7-33.7); MCHC 33.3 g/dl (32.0-35.9); MEAN CELL VOLUME 88.6 fl (80-96); MEAN PLT VOLUME 8.4 fl (7.5-11.1); MONO % 8.8 % (3.8-10.2); NEUT % 72.6 % (42.8-82.8); PLATELET COUNT 260 K/MM3 (134-434); RBC 4.49 M/mm3 (4.00-5.60); RDW 12.9 % (11.9-15.9); WHITE BLOOD COUNT 11.3 K/mm3 (4.0-10.8)
[2019-04-08] MEDS ORDERED: VANCOMYCIN 1,000 MG VIAL (RESTRICTED TO ID ONLY) ONE (13:10)
[2019-04-08 13:14] LABS: ALBUMIN 3.4 g/dl (3.4-5.0); BILIRUBIN,TOTAL 0.6 mg/dl (0.2-1); CALCIUM 8.7 mg/dl (8.5-10); CREATININE 1.2 mg/dl (0.55-1.3); POTASSIUM 3.8 mmol/L (3.5-5.1)
[2019-04-08 13:27] LABS: EPITHELIAL CELLS FEW /hpf
--- NOTE | 2019-04-08 14:07 | HP ---
CHIEF COMPLAINT: Groin pain PCP: Dr. Lee HISTORY OF PRESENT ILLNESS: 78 year-old male with a [facility] siginificant for HTN, HLD, Type II NIDDM, renal cancer s/p right nephrectomy, CKD, BPH, lower GI bleed (09/2018), gout, and Alzheimer's dementia. Patient presented to ED on 04/01 with dysuria, discharged on 10-day course of macrobid. Today he was referred again to the ED by his PCP Dr. Lee for a groin rash, groin pain, painful urination, and elevated BP. Urine culture from 04/01 grew Group B strep and patient was switched from macrobid to amoxicillin yesterday. ER course was notable for: (1) WBC 11.3 Recent Travel: No PAST MEDICAL HISTORY: Hypertension Hyperlipidemia Type II NIDDM Gout Renal cell cancer Spinal stenosis Chronic kidney disease BPH Obesity Alzheimer's dementia Lower GI diverticular bleed (09/2018) PAST SURGICAL HISTORY: Right nephrectomy 2009 Embolization of the ileocolic branch (09/2018) Social History: Smoking: quit 1989 Alcohol: no Drugs: no Family History: Father heart disease Allergies No Known Drug Allergies Allergy (Verified 04/08/19 12:20) HOME MEDICATIONS: Home Medications Medication Instructions Recorded Amlodipine Besylate 2.5 mg PO DAILY 04/01/19 Amlodipine Besylate 5 mg PO DAILY 04/01/19 Atorvastatin Ca [Lipitor] 20 mg PO DAILY 04/01/19 Carvedilol [Coreg -] 25 mg PO BID 04/01/19 Docusate Sodium [Colace -] 100 mg PO DAILY 04/01/19 Donepezil HCl 10 mg PO DAILY 04/01/19 Duloxetine HCl 30 mg PO BID 04/01/19 Empagliflozin [Jardiance] 25 mg PO DAILY 04/01/19 Ferrous Sulfate 325 mg PO DAILY 04/01/19 Glipizide 10 mg PO BID 04/01/19 Mupirocin Ointment [Bactroban] 1 applic TP TID 04/01/19 Sitagliptin Phosphate [Januvia] 100 mg PO DAILY 04/01/19 Allopurinol [Zyloprim -] 100 mg PO MOWEFR 04/08/19 Amoxicillin - [Amoxicillin 500mg 500 mg PO TID 04/08/19 Capsule -] Finasteride [Proscar] 5 mg PO HS 04/08/19 REVIEW OF SYSTEMS: CONSTITUTIONAL: Absent: fever, chills, diaphoresis, generalized weakness, malaise, loss of appetite, weight change HEENT: Absent: rhinorrhea, nasal congestion, throat pain, throat swelling, difficulty swallowing, mouth swelling, ear pain, eye pain, visual changes CARDIOVASCULAR: Absent: chest pain, syncope, palpitations, irregular heart rate, lightheadedness , peripheral edema RESPIRATORY: Absent: cough, shortness of breath, dyspnea with exertion, orthopnea, wheezing, stridor, hemoptysis GASTROINTESTINAL: Absent: abdominal pain, abdominal distension, nausea, vomiting, diarrhea, constipation, melena, hematochezia GENITOURINARY: +pain on urination, groin pain Absent: dysuria, frequency, urgency, hesitancy, hematuria, flank pain, genital pain MUSCULOSKELETAL: Absent: myalgia, arthralgia, joint swelling, back pain, neck pain SKIN: +groin rash Absent: rash, itching, pallor HEMATOLOGIC/IMMUNOLOGIC: Absent: easy bleeding, easy bruising, lymphadenopathy, frequent infections ENDOCRINE: Absent: unexplained weight gain, unexplained weight loss, heat intolerance, cold intolerance NEUROLOGIC: Absent: headache, focal weakness or paresthesias, dizziness, unsteady gait, seizure, mental status changes, bladder or bowel incontinence PSYCHIATRIC: Absent: anxiety, depression, suicidal or homicidal ideation, hallucinations. PHYSICAL EXAMINATION Vital Signs - 24 hr 04/08/19 12:04 Temperature 98.1 F Pulse Rate 65 Respiratory 20 Rate Blood Pressure 157/76 O2 Sat by Pulse 98 Oximetry (%) GENERAL: Awake, alert HEAD: Normal with no signs of trauma. EYES: Pupils equal, round and reactive to light, extraocular movements intact, sclera anicteric, conjunctiva clear. No lid lag. LUNGS: Breath sounds equal, clear to auscultation bilaterally. No wheezes, and no crackles. No accessory muscle use. HEART: Regular rate and rhythm, S1 and S2 ABDOMEN: Soft, nontender, not distended : Scrotal tenderness, erythema, no swelling SKIN: Fungal-type rash, severe, across entire groin extending bilaterally to upper thighs, satellite lesions; small pustules at the outer edges bilaterally; no penile discharge UPPER EXTREMITIES: 2+ pulses, warm, well-perfused. No cyanosis. No clubbing. No peripheral edema. LOWER EXTREMITIES: 2+ pulses, warm, well-perfused. No calf tenderness NEUROLOGICAL: Cranial nerves II-XII intact. Normal speech. Laboratory Results - last 24 hr 04/08/19 04/08/19 04/08/19 12:30 12:40 12:40 WBC 11.3 H RBC 4.49 Hgb 13.3 Hct 39.8 MCV 88.6 MCH 29.5 MCHC 33.3 RDW 12.9 Plt Count 260 MPV 8.4 Absolute Neuts (auto) 8.2 Neutrophils % 72.6 D Lymphocytes % 15.3 D Monocytes % 8.8 Eosinophils % 2.7 Basophils % 0.6 Sodium 139 Potassium 3.8 Chloride 105 Carbon Dioxide 27 Anion Gap 7 L BUN 22.0 H Creatinine 1.2 Est GFR (CKD-EPI)AfAm 67.20 Est GFR (CKD-EPI)NonAf 57.98 Random Glucose 188 H Calcium 8.7 Total Bilirubin 0.6 AST 12 L ALT 14 Alkaline Phosphatase 71 Total Protein 6.0 L Albumin 3.4 Urine Color Yellow Urine Appearance Clear Urine pH 5.5 Urine Protein 1+ H Urine Glucose (UA) 3+ Urine Ketones Negative Urine Blood Negative Urine Nitrite Negative Urine Bilirubin Negative Urine Urobilinogen 0.2 Ur Leukocyte Esterase Negative Urine RBC 0-2 Urine WBC 0-2 Ur Transition Epith Cell Few ASSESSMENT/PLAN: 78 year-old male with a PMH siginificant for HTN, HLD, Type II NIDDM, renal cancer s/p right nephrectomy, CKD, BPH, lower GI bleed (09/2018), gout, and Alzheimer's dementia. Admitted for acute right-sided orchitis, severe groin fungal rash with pustules. Acute right-sided orchitis Orchiepididymitis --US shows acute right-sided orchitis and bilateral epididymal cysts; exquisite right testicular tenderness on exam and positive urine culture support diagnosis --CTAP and bilateral femurs negative for air/gas, unlikely Lv's gangrene --discussed with ID, continue Vanc, Zosyn, Clinda --C&G pending Fungal-type groin rash with pustules --antibiotics as above --topical Nystatin --collect culture from pustules Group B Strep UTI Urinary retention --04/01 culture (+) Group B Strep --patient crying with painful urination and hesitant to pass urine-->bladder scan >300ccs-->del rosario placed --antibiotics as above --strict I&Os Hypertension --continue amlodipine, carvedilol Hyperlipidemia --continue statin Type II NIDDM --Novolog sliding scale coverage CKD Renal cell carcinoma s/p right nephrectomy --Cr 1.2 BPH --continue Proscar h/o lower GI diverticvular bleed --h/h stable Alzheimer's dementia --continue donepezil, duloxetine Gout --continue allopurinol FEN Fluids: PO intake adequate Electrolytes: replete as indicated Nutrition: diabetic, low sodium DVT prophylaxis: avoid chemical prophylaxis due to recent diverticular bleed; SCDs, oob, ambulation Physical therapy Dispo: continues to require inpatient care. Full code. Visit type - Emergency Visit Emergency Visit: Yes ED Registration Date: 04/08/19 Care time: The patient presented to the Emergency Department on the above date and was hospitalized for further evaluation of their emergent condition. - New Patient This patient is new to me today: No - Critical Care Critical Care patient: No
[2019-04-08 16:45] VITALS: BMI 25.0
[2019-04-08] MEDS: NYSTATIN 100,000 UNIT/GM TOPICAL CREAM 15 GM TUBE TP SCH ×2 (17:17→22:12)
[2019-04-08] MEDS: CLINDAMYCIN 600MG PREMIX IVPB 600 MG/50 ML BAG IVPB SCH ×3 (17:18→17:33)
[2019-04-08] MEDS ORDERED: KETOROLAC TROMETHAMINE 15 MG/ML VIAL IVPUSH ONE (22:30)
[2019-04-08] MEDS ORDERED: TAMSULOSIN HCL 0.4 MG CAP PO SCH (22:30)
[2019-04-08] MEDS ORDERED: ACETAMINOPHEN 325 MG TABLET (FP) ONE (22:54)
[2019-04-08] MEDS: VANCOMYCIN HCL 1,250 MG in DEXTROSE 5%-WATER - 250 ML IVPB SCH (23:00)
[2019-04-08] MEDS: PIPERACILLIN/TAZOB 3.375 GM 3.375 GM in DEXTROSE 5%-WATER - 50 ML IVPB SCH (23:00)
[2019-04-08] MEDS ORDERED: PIPERACILLIN/TAZOB 3.375 GM 3.375 GM in DEXTROSE 5%-WATER - 50 ML IVPB SCH (23:30)
[2019-04-08] MEDS ORDERED: VANCOMYCIN HCL 1,250 MG in DEXTROSE 5%-WATER - 250 ML IVPB SCH (23:30)
[2019-04-08] MEDS ORDERED: PIPERACILLIN/TAZOBACTAM 3.375 GM VIAL IVPB ONE (23:40)
[2019-04-08] MEDS ORDERED: DEXTROSE 5%-WATER - 50 ML IVPB ONE (23:40)
[2019-04-09] MEDS: CLINDAMYCIN 600MG PREMIX IVPB 600 MG/50 ML BAG IVPB SCH ×2 (02:00→09:52)
[2019-04-09] MEDS ORDERED: DEXTROSE 5%-WATER - 50 ML IVPB ONE ×2 (07:36→15:49)
[2019-04-09] MEDS ORDERED: PIPERACILLIN/TAZOBACTAM 3.375 GM VIAL IVPB ONE ×2 (07:36→15:48)
[2019-04-09] MEDS: INSULIN SLIDING SCALE (NOVOLOG) 1 VIAL SQ SCH ×3 (07:46→18:54)
[2019-04-09] MEDS ORDERED: INSULIN (NOVOLOG) ASPART 100 UNITS/ML 10ML VIAL ONE (07:46)
[2019-04-09] MEDS: PIPERACILLIN/TAZOB 3.375 GM 3.375 GM in DEXTROSE 5%-WATER - 50 ML IVPB SCH ×2 (07:48→16:20)
[2019-04-09 08:40] LABS: BASO % 0.6 % (0-2.0); EOS % 3.1 % (0-4.5); HEMATOCRIT 41.1 % (35.4-49); HEMOGLOBIN 13.4 GM/dl (11.7-16.9); LYMPH % 14.5 % (8-40); MCH 29.3 pg (25.7-33.7); MCHC 32.7 g/dl (32.0-35.9); MEAN CELL VOLUME 89.4 fl (80-96); MEAN PLT VOLUME 8.8 fl (7.5-11.1); NEUT % 71.8 % (42.8-82.8); PLATELET COUNT 248 K/MM3 (134-434); RBC 4.59 M/mm3 (4.00-5.60); RDW 12.7 % (11.9-15.9); WHITE BLOOD COUNT 10.3 K/mm3 (4.0-10.8)
[2019-04-09 08:46] LABS: INR 1.33 (0.82-1.09); PROTHROMBIN TIME (PATIENT) 14.8 SEC (10.2-13.0)
[2019-04-09 08:59] LABS: ALBUMIN 3.3 g/dl (3.4-5.0); BILIRUBIN,TOTAL 0.7 mg/dl (0.2-1); CALCIUM 8.7 mg/dl (8.5-10); CREATININE 1.3 mg/dl (0.55-1.3); MAGNESIUM 2.1 mg/dL (1.8-2.4); POTASSIUM 3.1 mmol/L (3.5-5.1); TOT PROT 5.7 g/dl (6.4-8.2)
[2019-04-09] MEDS: amLODIPine BESYLATE 5 MG TABLET (FP) PO SCH (09:52)
[2019-04-09] MEDS: DULoxetine HCL 30 MG CAPSULE.DR PO SCH ×2 (09:52→21:53)
[2019-04-09] MEDS: glipiZIDE 10 MG TABLET (FP) PO SCH ×2 (09:52→21:56)
[2019-04-09] MEDS: NYSTATIN 100,000 UNIT/GM TOPICAL CREAM 15 GM TUBE TP SCH ×2 (09:52→21:56)
[2019-04-09] MEDS: CARVEDILOL 25 MG TABLET (FP) PO SCH ×2 (09:53→21:53)
[2019-04-09] MEDS: FERROUS SO4 325 MG TABLET (FP) PO SCH (09:53)
[2019-04-09] MEDS: DOCUSATE SODIUM 100 MG CAPSULE (FP) PO SCH (09:53)
[2019-04-09] MEDS ORDERED: ENOXAPARIN NA (PORCINE) 40 MG/0.4 ML DISP.SYRIN SQ SCH (10:00)
[2019-04-09] MEDS ORDERED: amLODIPine BESYLATE 5 MG TABLET (FP) PO SCH (10:00)
[2019-04-09] MEDS ORDERED: PT OWN MED DRAWER 7, Y5N ONE ×2 (10:46→11:33)
--- NOTE | 2019-04-09 11:03 | PN ---
Physical Exam: SUBJECTIVE: Patient seen and examined OBJECTIVE: Vital Signs Period Temp Pulse Resp BP Sys/Gatica Pulse Ox Last 24 Hr 97.6 F-98.5 F 56-76 16-20 150-161/63-84 94-99 GENERAL: Awake, alert HEAD: Normal with no signs of trauma. EYES: Pupils equal, round and reactive to light, extraocular movements intact, sclera anicteric, conjunctiva clear. No lid lag. LUNGS: Breath sounds equal, clear to auscultation bilaterally. No wheezes, and no crackles. No accessory muscle use. HEART: Regular rate and rhythm, S1 and S2 ABDOMEN: Soft, nontender, not distended : Scrotal tenderness, erythema, no swelling, Del Rosario in place SKIN: Fungal-type rash, severe, across entire groin extending bilaterally to upper thighs, satellite lesions; small pustules at the outer edges bilaterally; no penile discharge UPPER EXTREMITIES: 2+ pulses, warm, well-perfused. No cyanosis. No clubbing. No peripheral edema. LOWER EXTREMITIES: 2+ pulses, warm, well-perfused. No calf tenderness NEUROLOGICAL: Cranial nerves II-XII intact. Normal speech. Laboratory Results - last 24 hr 04/08/19 04/08/19 04/08/19 12:30 12:40 12:40 WBC 11.3 H RBC 4.49 Hgb 13.3 Hct 39.8 MCV 88.6 MCH 29.5 MCHC 33.3 RDW 12.9 Plt Count 260 MPV 8.4 Absolute Neuts (auto) 8.2 Neutrophils % 72.6 D Lymphocytes % 15.3 D Monocytes % 8.8 Eosinophils % 2.7 Basophils % 0.6 PT with INR INR PTT (Actin FS) Sodium 139 Potassium 3.8 Chloride 105 Carbon Dioxide 27 Anion Gap 7 L BUN 22.0 H Creatinine 1.2 Est GFR (CKD-EPI)AfAm 67.20 Est GFR (CKD-EPI)NonAf 57.98 POC Glucometer Random Glucose 188 H Lactic Acid Calcium 8.7 Magnesium Total Bilirubin 0.6 AST 12 L ALT 14 Alkaline Phosphatase 71 Total Protein 6.0 L Albumin 3.4 Urine Color Yellow Urine Appearance Clear Urine pH 5.5 Urine Protein 1+ H Urine Glucose (UA) 3+ Urine Ketones Negative Urine Blood Negative Urine Nitrite Negative Urine Bilirubin Negative Urine Urobilinogen 0.2 Ur Leukocyte Esterase Negative Urine RBC 0-2 Urine WBC 0-2 Ur Transition Epith Cell Few 04/08/19 04/08/19 04/08/19 12:50 16:20 17:01 WBC RBC Hgb Hct MCV MCH MCHC RDW Plt Count MPV Absolute Neuts (auto) Neutrophils % Lymphocytes % Monocytes % Eosinophils % Basophils % PT with INR INR PTT (Actin FS) 29.6 Sodium Potassium Chloride Carbon Dioxide Anion Gap BUN Creatinine Est GFR (CKD-EPI)AfAm Est GFR (CKD-EPI)NonAf POC Glucometer 137 Random Glucose Lactic Acid 0.8 Calcium Magnesium Total Bilirubin AST ALT Alkaline Phosphatase Total Protein Albumin Urine Color Urine Appearance Urine pH Urine Protein Urine Glucose (UA) Urine Ketones Urine Blood Urine Nitrite Urine Bilirubin Urine Urobilinogen Ur Leukocyte Esterase Urine RBC Urine WBC Ur Transition Epith Cell 04/08/19 04/09/19 04/09/19 23:00 06:21 07:49 WBC 10.3 RBC 4.59 Hgb 13.4 Hct 41.1 MCV 89.4 MCH 29.3 MCHC 32.7 RDW 12.7 Plt Count 248 MPV 8.8 Absolute Neuts (auto) 7.4 Neutrophils % 71.8 Lymphocytes % 14.5 Monocytes % 10.0 Eosinophils % 3.1 Basophils % 0.6 PT with INR INR PTT (Actin FS) Sodium Potassium Chloride Carbon Dioxide Anion Gap BUN Creatinine Est GFR (CKD-EPI)AfAm Est GFR (CKD-EPI)NonAf POC Glucometer 339 Random Glucose Lactic Acid Calcium Magnesium Total Bilirubin AST ALT Alkaline Phosphatase Total Protein Albumin Urine Color Yellow Urine Appearance Clear Urine pH 6.5 Urine Protein Negative Urine Glucose (UA) 2+ Urine Ketones Negative Urine Blood Negative Urine Nitrite Negative Urine Bilirubin Negative Urine Urobilinogen 0.2 Ur Leukocyte Esterase Negative Urine RBC Urine WBC Ur Transition Epith Cell 04/09/19 04/09/19 04/09/19 07:49 07:49 09:10 WBC RBC Hgb Hct MCV MCH MCHC RDW Plt Count MPV Absolute Neuts (auto) Neutrophils % Lymphocytes % Monocytes % Eosinophils % Basophils % PT with INR 14.8 H INR 1.33 H PTT (Actin FS) Sodium 135 L Potassium 3.1 L Chloride 101 Carbon Dioxide 24 Anion Gap 10 BUN 19.0 H Creatinine 1.3 Est GFR (CKD-EPI)AfAm 61.00 Est GFR (CKD-EPI)NonAf 52.63 POC Glucometer 249 Random Glucose 350 H Lactic Acid Calcium 8.7 Magnesium 2.1 Total Bilirubin 0.7 AST 15 ALT 13 Alkaline Phosphatase 70 Total Protein 5.7 L Albumin 3.3 L Urine Color Urine Appearance Urine pH Urine Protein Urine Glucose (UA) Urine Ketones Urine Blood Urine Nitrite Urine Bilirubin Urine Urobilinogen Ur Leukocyte Esterase Urine RBC Urine WBC Ur Transition Epith Cell Active Medications Generic Name Dose Route Start Last Admin Trade Name Freq PRN Reason Stop Dose Admin Allopurinol 100 mg 04/11/19 10:00 Zyloprim - PO MoWeFr@1000 [facility] Amlodipine Besylate 5 mg 04/09/19 10:00 04/09/19 09:52 Norvasc - PO 5 mg DAILY [facility] Administration Atorvastatin Calcium 20 mg 04/09/19 22:00 Lipitor - PO HS [facility] Carvedilol 25 mg 04/09/19 10:00 04/09/19 09:53 Coreg - PO 25 mg BID [facility] Administration Docusate Sodium 100 mg 04/09/19 10:00 04/09/19 09:53 Colace - PO 100 mg DAILY [facility] Administration Donepezil HCl 10 mg 04/09/19 22:00 Aricept - PO HS [facility] Duloxetine HCl 30 mg 04/09/19 10:00 04/09/19 09:52 Cymbalta - PO 30 mg BID [facility] Administration Ferrous Sulfate 325 mg 04/09/19 10:00 04/09/19 09:53 Feosol - PO 325 mg DAILY [facility] Administration Finasteride 5 mg 04/09/19 22:00 Proscar - PO HS [facility] Glipizide 10 mg 04/09/19 10:00 04/09/19 09:52 Glucotrol - PO 10 mg BID [facility] Administration Clindamycin Phosphate 600 mg in 50 mls @ 100 mls/hr 04/08/19 14:30 04/09/19 09:52 Cleocin 600 Mg Premix Ivpb - IVPB 100 mls/hr Q8H-IV [facility] Administration Protocol Piperacillin Sod/Tazobactam 50 mls @ 100 mls/hr 04/08/19 23:30 Sod 3.375 gm/ Dextrose IVPB Q8H [facility] Vancomycin HCl 1,250 mg/ 250 mls @ 125 mls/hr 04/08/19 23:30 Dextrose IVPB Q12H [facility] Piperacillin Sod/Tazobactam 50 mls @ 100 mls/hr 04/08/19 23:45 04/09/19 07:48 Sod 3.375 gm/ Dextrose IVPB 04/09/19 16:14 100 mls/hr Q8H [facility] Administration Vancomycin HCl 1,250 mg/ 250 mls @ 125 mls/hr 04/08/19 23:45 04/08/19 23:00 Dextrose IVPB 04/09/19 13:44 125 mls/hr Q12H [facility] Administration Insulin Aspart 1 vial 04/09/19 07:00 04/09/19 07:46 Novolog Vial Sliding Scale - SQ 8 unit TIDAC [facility] Administration Protocol Nystatin 1 applic 04/08/19 14:00 04/09/19 09:52 Mycostatin Cream - TP 1 applic BID [facility] Administration Sitagliptin Phosphate 100 mg 04/09/19 10:08 04/09/19 10:09 Januvia - PO 100 mg DAILY@0700 [facility] Administration ASSESSMENT/PLAN: Acute right-sided orchitis Orchiepididymitis --US shows acute right-sided orchitis and bilateral epididymal cysts; exquisite right testicular tenderness on exam and positive urine culture support diagnosis --CTAP and bilateral femurs negative for air/gas, unlikely Lv's gangrene --discussed with ID, continue Vanc, Zosyn, start Capsofungin --C&G pending --Consulted Urology Fungal-type groin rash with pustules --antibiotics as above --topical Nystatin --collected culture from pustules Group B Strep UTI Urinary retention --04/01 culture (+) Group B Strep --patient crying with painful urination and hesitant to pass urine-->bladder scan >300ccs-->edl rosario placed --antibiotics as above --strict I&Os Hypertension --continue amlodipine, carvedilol Hyperlipidemia --continue statin Type II NIDDM --Novolog sliding scale coverage --PO Metformin and GLipizide CKD Renal cell carcinoma s/p right nephrectomy --Cr 1.2 BPH --continue Proscar h/o lower GI diverticvular bleed --h/h stable Alzheimer's dementia --continue donepezil, duloxetine Gout --continue allopurinol FEN Fluids: PO intake adequate Electrolytes: replete as indicated Nutrition: diabetic, low sodium DVT prophylaxis: avoid chemical prophylaxis due to recent diverticular bleed; SCDs, oob, ambulation Physical therapy Dispo: continues to require inpatient care. Full code. Visit type - Emergency Visit Emergency Visit: Yes ED Registration Date: 04/08/19 Care time: The patient presented to the Emergency Department on the above date and was hospitalized for further evaluation of their emergent condition. - New Patient This patient is new to me today: Yes Date on this admission: 04/11/19 - Critical Care Critical Care patient: No
[2019-04-09] MEDS: VANCOMYCIN HCL 1,250 MG in DEXTROSE 5%-WATER - 250 ML IVPB SCH (11:40)
--- NOTE | 2019-04-09 11:42 | CON.ID ---
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 ) Rheumatology: Yes: Gout Endocrine: Yes: Diabetes Mellitus (non-insulin dependent. ) - Past Surgical History Past Surgical History: Yes: Cataract Removal, Nephrectomy - Alcohol/Substance Use Hx Alcohol Use: No - Smoking History Smoking history: Unknown if ever smoked Have you smoked in the past 12 months: No Aproximately how many cigarettes per day: 20 If you are a former smoker, when did you quit?: 1989 - Social History Usual Living Arrangement: [facility] ADL: Support Services Occupation: [employer] business History of Recent Travel: No Home Medications - Allergies Allergies/Adverse Reactions: Allergies Allergy/AdvReac Type Severity Reaction Status Date / Time No Known Drug Allergies Allergy Verified 04/08/19 12:20 - Home Medications Home Medications: Ambulatory Orders Amlodipine Besylate 2.5 mg PO DAILY 04/01/19 Amlodipine Besylate 5 mg PO DAILY 04/01/19 Atorvastatin Ca [Lipitor] 20 mg PO DAILY 04/01/19 Carvedilol [Coreg -] 25 mg PO BID 04/01/19 Docusate Sodium [Colace -] 100 mg PO DAILY 04/01/19 Donepezil HCl 10 mg PO DAILY 04/01/19 Duloxetine HCl 30 mg PO BID 04/01/19 Empagliflozin [Jardiance] 25 mg PO DAILY 04/01/19 Ferrous Sulfate 325 mg PO DAILY 04/01/19 Glipizide 10 mg PO BID 04/01/19 Mupirocin Ointment [Bactroban] 1 applic TP TID 04/01/19 Sitagliptin Phosphate [Januvia] 100 mg PO DAILY 04/01/19 Allopurinol [Zyloprim -] 100 mg PO MOWEFR 04/08/19 Amoxicillin - [Amoxicillin 500mg Capsule -] 500 mg PO TID 04/08/19 Finasteride [Proscar] 5 mg PO HS 04/08/19 Physical Exam Vital Signs: Vital Signs Temperature 97.9 F 04/09/19 06:48 Pulse Rate 73 04/09/19 06:48 Respiratory Rate 16 04/09/19 06:48 Blood Pressure 154/84 04/09/19 06:48 O2 Sat by Pulse Oximetry (%) 98 04/09/19 06:48 Labs: CBC, BMP 04/09/19 07:49 04/09/19 07:49
[2019-04-09] MEDS ORDERED: CASPOFUNGIN ACETATE 50 MG in SODIUM CHLORIDE 250 ML IVPB SCH (12:00)
--- NOTE | 2019-04-09 18:59 | EKG ---
Test Reason : Blood Pressure : / mmHG Vent. Rate : 060 BPM Atrial Rate : 060 BPM P-R Int : 148 ms QRS Dur : 144 ms QT Int : 460 ms P-R-T Axes : 041 078 042 degrees QTc Int : 460 ms NORMAL SINUS RHYTHM RIGHT BUNDLE BRANCH BLOCK ABNORMAL ECG WHEN COMPARED WITH ECG OF 16-SEP-2018 14:01, RBBB NOW PRESENT Confirmed by JOSE ALFREDO NELSON MD ([id number]) on 04/09/2019 6:59:36 PM Referred By: DR ESCALANTE Confirmed By:JOSE ALFREDO NELSON MD
[2019-04-09] MEDS ORDERED: POTASSIUM CHLORIDE TABS 20 MEQ TABLET.ER (FP) PO ONE ×2 (20:28→20:30)
[2019-04-09] MEDS ORDERED: glipiZIDE 5 MG TABLET (FP) ONE (21:48)
[2019-04-09] MEDS: FINASTERIDE 5 MG TABLET (FP) PO SCH (21:53)
[2019-04-09] MEDS: ATORVASTATIN CA 20 MG TABLET (FP) PO SCH (21:53)
[2019-04-09] MEDS ORDERED: DONEPEZIL HCL 10 MG TABLET (FP) PO SCH (22:00)
[2019-04-10] MEDS ORDERED: POTASSIUM CHLORIDE TABS 20 MEQ TABLET.ER (FP) PO ONE (02:45)
[2019-04-10] MEDS ORDERED: sitaGLIPtin PHOSPHATE 50 MG TABLET PO SCH (07:00)
[2019-04-10] MEDS: INSULIN SLIDING SCALE (NOVOLOG) 1 VIAL SQ SCH ×4 (07:30→22:49)
[2019-04-10] MEDS ORDERED: hydrALAZINE HCL 20 MG/ML VIAL IVPUSH ONE (09:10)
[2019-04-10] MEDS ORDERED: glipiZIDE 5 MG TABLET (FP) ONE (09:16)
[2019-04-10 09:44] LABS: ALBUMIN 3.6 g/dl (3.4-5.0); BILIRUBIN,TOTAL 1.1 mg/dl (0.2-1); MAGNESIUM 2.3 mg/dL (1.8-2.4); POTASSIUM 4.4 mmol/L (3.5-5.1); TOT PROT 6.2 g/dl (6.4-8.2)
[2019-04-10 09:50] LABS: HEMATOCRIT 45.6 % (35.4-49); MCH 29.7 pg (25.7-33.7); MCHC 32.8 g/dl (32.0-35.9); MEAN CELL VOLUME 90.4 fl (80-96); MEAN PLT VOLUME 9.5 fl (7.5-11.1); PLATELET COUNT 278 K/MM3 (134-434); RBC 5.05 M/mm3 (4.00-5.60); RDW 13.4 % (11.9-15.9); WHITE BLOOD COUNT 17.7 K/mm3 (4.0-10.8)
[2019-04-10] MEDS: FERROUS SO4 325 MG TABLET (FP) PO SCH (10:00)
[2019-04-10] MEDS: NYSTATIN 100,000 UNIT/GM TOPICAL CREAM 15 GM TUBE TP SCH ×2 (10:24→21:28)
[2019-04-10] MEDS: CARVEDILOL 25 MG TABLET (FP) PO SCH ×2 (10:38→21:27)
[2019-04-10] MEDS: DULoxetine HCL 30 MG CAPSULE.DR PO SCH ×2 (10:38→21:27)
[2019-04-10] MEDS: DOCUSATE SODIUM 100 MG CAPSULE (FP) PO SCH (10:38)
[2019-04-10 11:48] LABS: LYMPH % 6.6 % (8-40)
[2019-04-10 11:49] LABS: MONO % 6.4 % (3.8-10.2)
[2019-04-10] MEDS: FLUCONAZOLE 200 MG/D5W 100 ML IVPB SCH (12:00)
[2019-04-10] MEDS ORDERED: REFRIGERATED ANITBIOTICS ONE ×2 (14:06→15:17)
--- NOTE | 2019-04-10 15:45 | PN ---
Progress Note, Physician History of Present Illness: clinically patient looks stable calm - Current Medication List Current Medications: Active Medications Allopurinol (Zyloprim -) 100 mg PO MoWeFr@1000 [facility] Amlodipine Besylate (Norvasc -) 5 mg PO DAILY [facility] Last Admin: 04/09/19 09:52 Dose: 5 mg Atorvastatin Calcium (Lipitor -) 20 mg PO HS [facility] Last Admin: 04/09/19 21:53 Dose: 20 mg Carvedilol (Coreg -) 25 mg PO BID [facility] Last Admin: 04/10/19 10:38 Dose: 25 mg Docusate Sodium (Colace -) 100 mg PO DAILY [facility] Last Admin: 04/10/19 10:38 Dose: 100 mg Duloxetine HCl (Cymbalta -) 30 mg PO BID [facility] Last Admin: 04/10/19 10:38 Dose: 30 mg Ferrous Sulfate (Feosol -) 325 mg PO DAILY [facility] Last Admin: 04/09/19 09:53 Dose: 325 mg Finasteride (Proscar -) 5 mg PO [facility] Last Admin: 04/09/19 21:53 Dose: 5 mg Piperacillin Sod/Tazobactam (Sod 3.375 gm/ Dextrose) 50 mls @ 100 mls/hr IVPB Q8H [facility] Vancomycin HCl 1,250 mg/ (Dextrose) 250 mls @ 125 mls/hr IVPB Q12H [facility] Fluconazole (Diflucan 200 Mg/D5w Premixed Ivpb -) 100 mls @ 100 mls/hr IVPB DAILY [facility] Insulin Aspart (Novolog Vial Sliding Scale -) 1 vial SQ ACHS [facility]; Protocol Nystatin (Mycostatin Cream -) 1 applic TP BID [facility] Last Admin: 04/09/19 21:56 Dose: 1 applic - Objective Vital Signs: Vital Signs Temperature 98.1 F 04/10/19 14:25 Pulse Rate 69 04/10/19 14:25 Respiratory Rate 18 04/10/19 14:25 Blood Pressure 166/77 04/10/19 14:25 O2 Sat by Pulse Oximetry (%) 98 04/10/19 14:25 Constitutional: Yes: No Distress, Moderate Distress Cardiovascular: Yes: Regular Rate and Rhythm Respiratory: Yes: Regular, CTA Bilaterally Gastrointestinal: Yes: Normal Bowel Sounds, Soft Musculoskeletal: Yes: Other (groin redness and small pustules noted) Extremities: Yes: WNL Integumentary: Yes: Erythema (slightly better), Other Neurological: Yes: Alert Psychiatric: Yes: Alert, Other Labs: CBC, BMP 04/10/19 07:45 04/10/19 07:45 INR, PTT INR 1.33 (0.82-1.09) H 04/09/19 07:49 Assessment/Plan 78 year-old male with a PMH siginificant for HTN, HLD, Type II NIDDM, renal cancer s/p right nephrectomy, CKD, BPH, lower GI bleed (09/2018), gout, and Alzheimer's dementia. Admitted for acute right-sided orchitis, severe groin fungal rash with pustules. Acute right-sided orchitis groin rash Fungal-type groin rash with pustules UTI Hypertension Hyperlipidemia Type II NIDDM CKD BPH dementia plan repeat cbc if high will consider adding clinda also will see what is wbc tomorrow continue abx monitor closely creatinine
[2019-04-10 16:43] LABS: HEMATOCRIT 46.8 % (35.4-49); HEMOGLOBIN 15.4 GM/dl (11.7-16.9); MCH 29.1 pg (25.7-33.7); MCHC 32.8 g/dl (32.0-35.9); MEAN CELL VOLUME 88.8 fl (80-96); MEAN PLT VOLUME 8.8 fl (7.5-11.1); PLATELET COUNT 348 K/MM3 (134-434); RBC 5.27 M/mm3 (4.00-5.60); RDW 13.2 % (11.9-15.9); WHITE BLOOD COUNT 25.6 K/mm3 (4.0-10.8)
[2019-04-10] MEDS ORDERED: DEXTROSE 5%-WATER - 50 ML IVPB ONE ×2 (16:52→21:18)
[2019-04-10] MEDS ORDERED: PIPERACILLIN/TAZOBACTAM 2.25 GM VIAL IVPB ONE ×2 (16:52→21:17)
[2019-04-10 16:56] LABS: ALBUMIN 3.6 g/dl (3.4-5.0); BILIRUBIN,TOTAL 0.7 mg/dl (0.2-1); CALCIUM 9.5 mg/dl (8.5-10); MAGNESIUM 2.3 mg/dL (1.8-2.4); POTASSIUM 4.1 mmol/L (3.5-5.1); TOT PROT 6.5 g/dl (6.4-8.2)
[2019-04-10] MEDS ORDERED: VANCOMYCIN HCL 1,250 MG in DEXTROSE 5%-WATER - 250 ML IVPB ONE (17:00)
[2019-04-10] MEDS: PIPERACILLIN/TAZOB 2.25 GM 2.25 GM in DEXTROSE 5%-WATER - 50 ML IVPB SCH ×2 (17:00→21:26)
[2019-04-10 18:54] LABS: PLATELET ESTIMATE ADEQUATE
[2019-04-10] MEDS: ATORVASTATIN CA 20 MG TABLET (FP) PO SCH (21:27)
[2019-04-10] MEDS: FINASTERIDE 5 MG TABLET (FP) PO SCH (21:27)
--- NOTE | 2019-04-10 23:22 | PN ---
Physical Exam: SUBJECTIVE: Patient seen and examined OBJECTIVE: Vital Signs Period Temp Pulse Resp BP Sys/Gatica Pulse Ox Last 24 Hr 97.9 F-98.9 F 62-102 17-20 146-199/67-103 98-100 GENERAL: Awake, alert HEAD: Normal with no signs of trauma. EYES: Pupils equal, round and reactive to light, extraocular movements intact, sclera anicteric, conjunctiva clear. No lid lag. LUNGS: Breath sounds equal, clear to auscultation bilaterally. No wheezes, and no crackles. No accessory muscle use. HEART: Regular rate and rhythm, S1 and S2 ABDOMEN: Soft, nontender, not distended : Scrotal tenderness, erythema, no swelling, [place] Ros[place] in place SKIN: Fungal-type rash, severe, across entire groin extending bilaterally to upper thighs, satellite lesions; small pustules at the outer edges bilaterally; no penile discharge UPPER EXTREMITIES: 2+ pulses, warm, well-perfused. No cyanosis. No clubbing. No peripheral edema. LOWER EXTREMITIES: 2+ pulses, warm, well-perfused. No calf tenderness NEUROLOGICAL: Cranial nerves II-XII intact. Normal speech. Laboratory Results - last 24 hr 04/10/19 04/10/19 04/10/19 06:00 07:18 07:45 WBC 17.7 H RBC 5.05 Hgb 15.0 Hct 45.6 MCV 90.4 MCH 29.7 MCHC 32.8 RDW 13.4 Plt Count 278 MPV 9.5 Absolute Neuts (auto) 15.5 Neutrophils % 86.0 H Neutrophils % (Manual) Band Neutrophils % Lymphocytes % 6.6 L D Lymphocytes % (Manual) Monocytes % 6.4 Monocytes % (Manual) Eosinophils % 1.0 Basophils % 0.0 Platelet Estimate Sodium Potassium Chloride Carbon Dioxide Anion Gap BUN Creatinine Est GFR (CKD-EPI)AfAm Est GFR (CKD-EPI)NonAf POC Glucometer 476 Random Glucose Hemoglobin A1c % 8.4 H Calcium Magnesium Total Bilirubin AST ALT Alkaline Phosphatase Total Protein Albumin 04/10/19 04/10/19 04/10/19 07:45 09:07 10:17 WBC RBC Hgb Hct MCV MCH MCHC RDW Plt Count MPV Absolute Neuts (auto) Neutrophils % Neutrophils % (Manual) Band Neutrophils % Lymphocytes % Lymphocytes % (Manual) Monocytes % Monocytes % (Manual) Eosinophils % Basophils % Platelet Estimate Sodium 139 Potassium 4.4 Chloride 105 Carbon Dioxide 20 L Anion Gap 14 BUN 26.0 H Creatinine 2.0 H Est GFR (CKD-EPI)AfAm 36.24 Est GFR (CKD-EPI)NonAf 31.26 POC Glucometer 554 503 Random Glucose 468 H* Hemoglobin A1c % Calcium 9.0 Magnesium 2.3 Total Bilirubin 1.1 H AST 18 ALT 15 Alkaline Phosphatase 74 Total Protein 6.2 L Albumin 3.6 04/10/19 04/10/19 04/10/19 10:53 11:47 16:00 WBC RBC Hgb Hct MCV MCH MCHC RDW Plt Count MPV Absolute Neuts (auto) Neutrophils % Neutrophils % (Manual) Band Neutrophils % Lymphocytes % Lymphocytes % (Manual) Monocytes % Monocytes % (Manual) Eosinophils % Basophils % Platelet Estimate Sodium 143 Potassium 4.1 Chloride 108 H Carbon Dioxide 25 Anion Gap 10 BUN 31.0 H Creatinine 2.0 H Est GFR (CKD-EPI)AfAm 36.24 Est GFR (CKD-EPI)NonAf 31.26 POC Glucometer 437 329 Random Glucose 62 L Hemoglobin A1c % Calcium 9.5 Magnesium 2.3 Total Bilirubin 0.7 AST 19 ALT 15 Alkaline Phosphatase 74 Total Protein 6.5 Albumin 3.6 04/10/19 04/10/19 04/10/19 16:00 17:05 17:51 WBC 25.6 H RBC 5.27 Hgb 15.4 Hct 46.8 MCV 88.8 MCH 29.1 MCHC 32.8 RDW 13.2 Plt Count 348 D MPV 8.8 Absolute Neuts (auto) Neutrophils % Neutrophils % (Manual) 87.0 H Band Neutrophils % 4.0 Lymphocytes % Lymphocytes % (Manual) 4.0 L Monocytes % Monocytes % (Manual) 5 Eosinophils % Basophils % Platelet Estimate Adequate Sodium Potassium Chloride Carbon Dioxide Anion Gap BUN Creatinine Est GFR (CKD-EPI)AfAm Est GFR (CKD-EPI)NonAf POC Glucometer 58 120 Random Glucose Hemoglobin A1c % Calcium Magnesium Total Bilirubin AST ALT Alkaline Phosphatase Total Protein Albumin 04/10/19 04/10/19 20:10 22:43 WBC RBC Hgb Hct MCV MCH MCHC RDW Plt Count MPV Absolute Neuts (auto) Neutrophils % Neutrophils % (Manual) Band Neutrophils % Lymphocytes % Lymphocytes % (Manual) Monocytes % Monocytes % (Manual) Eosinophils % Basophils % Platelet Estimate Sodium Potassium Chloride Carbon Dioxide Anion Gap BUN Creatinine Est GFR (CKD-EPI)AfAm Est GFR (CKD-EPI)NonAf POC Glucometer 203 238 Random Glucose Hemoglobin A1c % Calcium Magnesium Total Bilirubin AST ALT Alkaline Phosphatase Total Protein Albumin Active Medications Generic Name Dose Route Start Last Admin Trade Name Dony PRN Reason Stop Dose Admin Allopurinol 100 mg 04/11/19 10:00 Zyloprim - PO MoWeFr@1000 [facility] Amlodipine Besylate 5 mg 04/09/19 10:00 04/09/19 09:52 Norvasc - PO 5 mg DAILY [facility] Administration Atorvastatin Calcium 20 mg 04/09/19 22:00 04/10/19 21:27 Lipitor - PO 20 mg HS [facility] Administration Carvedilol 25 mg 04/09/19 10:00 04/10/19 21:27 Coreg - PO 25 mg BID [facility] Administration Docusate Sodium 100 mg 04/09/19 10:00 04/10/19 10:38 Colace - PO 100 mg DAILY [facility] Administration Duloxetine HCl 30 mg 04/09/19 10:00 04/10/19 21:27 Cymbalta - PO 30 mg BID [facility] Administration Ferrous Sulfate 325 mg 04/09/19 10:00 04/10/19 10:00 Feosol - PO 325 mg DAILY [facility] Administration Finasteride 5 mg 04/09/19 22:00 04/10/19 21:27 Proscar - PO 5 mg HS [facility] Administration Fluconazole 100 mls @ 100 mls/hr 04/10/19 12:00 04/10/19 12:00 Diflucan 200 Mg/D5w Premixed Ivpb - IVPB 100 mls/hr DAILY [facility] Administration Piperacillin Sod/Tazobactam 50 mls @ 100 mls/hr 04/10/19 17:00 04/10/19 21:26 Sod 2.25 gm/ Dextrose IVPB 100 mls/hr Q6H-IV [facility] Administration Insulin Aspart 1 vial 04/10/19 11:15 04/10/19 22:49 Novolog Vial Sliding Scale - SQ 4 units ACHS [facility] Administration Protocol Nystatin 1 applic 04/08/19 14:00 04/10/19 21:28 Mycostatin Cream - TP 1 applic BID [facility] Administration ASSESSMENT/PLAN: Acute right-sided orchitis Orchiepididymitis --US shows acute right-sided orchitis and bilateral epididymal cysts; exquisite right testicular tenderness on exam and positive urine culture support diagnosis --CTAP and bilateral femurs negative for air/gas, unlikely Lv's gangrene -- ID Following (Bobde), continue Vanc, Zosyn, stop Capsofungin due to rise in creatinine 2.0 --Start Fluconozale 200mg Daily --Stop Aricpet due to possible Prolong QT interval with Fluconozale. --Place on continuous cardiac monitoring --C&G pending --Awating Consulted Urology --Check PM labs Fungal-type groin rash with pustules --antibiotics as above --topical Nystatin --collected culture from pustules Group B Strep UTI Urinary retention --04/01 culture (+) Group B Strep --patient crying with painful urination and hesitant to pass urine-->bladder scan >300ccs-->del rosario placed --antibiotics as above --strict I&Os Hypertension --continue amlodipine, carvedilol Hyperlipidemia --continue statin Type II NIDDM --Novolog sliding scale coverage -- Stop PO Metformin and GLipizide CKD Renal cell carcinoma s/p right nephrectomy --Cr 2.0 BPH --continue Proscar h/o lower GI diverticvular bleed --h/h stable Alzheimer's dementia --continue duloxetine Gout --continue allopurinol FEN Fluids: PO intake adequate Electrolytes: replete as indicated Nutrition: diabetic, low sodium DVT prophylaxis: avoid chemical prophylaxis due to recent diverticular bleed; SCDs, oob, ambulation Physical therapy Dispo: continues to require inpatient care. Full code. Visit type - Emergency Visit Emergency Visit: Yes ED Registration Date: 04/08/19 Care time: The patient presented to the Emergency Department on the above date and was hospitalized for further evaluation of their emergent condition. - New Patient This patient is new to me today: No - Critical Care Critical Care patient: No
[2019-04-11] MEDS ORDERED: PIPERACILLIN/TAZOBACTAM 2.25 GM VIAL IVPB ONE ×4 (01:49→21:02)
[2019-04-11] MEDS ORDERED: DEXTROSE 5%-WATER - 50 ML IVPB ONE ×4 (01:49→21:03)
[2019-04-11] MEDS: PIPERACILLIN/TAZOB 2.25 GM 2.25 GM in DEXTROSE 5%-WATER - 50 ML IVPB SCH ×4 (02:04→21:21)
[2019-04-11] MEDS: INSULIN SLIDING SCALE (NOVOLOG) 1 VIAL SQ SCH ×4 (06:31→22:51)
[2019-04-11 08:24] LABS: BASO % 1.1 % (0-2.0); EOS % 3.5 % (0-4.5); HEMATOCRIT 44.6 % (35.4-49); HEMOGLOBIN 14.8 GM/dl (11.7-16.9); LYMPH % 12.2 % (8-40); MCH 29.7 pg (25.7-33.7); MCHC 33.2 g/dl (32.0-35.9); MEAN CELL VOLUME 89.5 fl (80-96); MONO % 7.5 % (3.8-10.2); NEUT % 75.7 % (42.8-82.8); PLATELET COUNT 310 K/MM3 (134-434); RBC 4.98 M/mm3 (4.00-5.60); RDW 13.4 % (11.9-15.9); WHITE BLOOD COUNT 19.9 K/mm3 (4.0-10.8)
[2019-04-11 08:48] LABS: ALBUMIN 3.3 g/dl (3.4-5.0); BILIRUBIN,TOTAL 1.1 mg/dl (0.2-1); CREATININE 2.2 mg/dl (0.55-1.3); MAGNESIUM 2.5 mg/dL (1.8-2.4); POTASSIUM 3.8 mmol/L (3.5-5.1)
[2019-04-11] MEDS: DOCUSATE SODIUM 100 MG CAPSULE (FP) PO SCH ×2 (09:02→10:48)
[2019-04-11] MEDS: CARVEDILOL 25 MG TABLET (FP) PO SCH ×3 (09:02→21:21)
[2019-04-11] MEDS: DULoxetine HCL 30 MG CAPSULE.DR PO SCH ×2 (09:02→21:21)
[2019-04-11] MEDS: ALLOPURINOL 100 MG TABLET (FP) PO SCH (09:02)
[2019-04-11] MEDS: FERROUS SO4 325 MG TABLET (FP) PO SCH (09:02)
[2019-04-11] MEDS: amLODIPine BESYLATE 5 MG TABLET (FP) PO SCH (09:02)
[2019-04-11] MEDS: NYSTATIN 100,000 UNIT/GM TOPICAL CREAM 15 GM TUBE TP SCH ×2 (09:03→21:22)
[2019-04-11] MEDS: FLUCONAZOLE 200 MG/D5W 100 ML IVPB SCH (09:03)
[2019-04-11] MEDS ORDERED: amLODIPine BESYLATE 2.5 MG TABLET (FP) PO SCH (10:00)
[2019-04-11] MEDS ORDERED: INSULIN (NOVOLOG) ASPART 100 UNITS/ML 10ML VIAL ONE (11:26)
[2019-04-11] MEDS: SODIUM CHLORIDE 1,000 ML IV SCH (11:50)
--- NOTE | 2019-04-11 12:26 | PN ---
Physical Exam: SUBJECTIVE: Patient seen and examined OBJECTIVE: Vital Signs Period Temp Pulse Resp BP Sys/Gatica Pulse Ox Last 24 Hr 97.7 F-98.9 F 68-88 16-20 137-171/64-80 97-98 GENERAL: The patient is awake, alert. A&Ox2. Knows in hospital. Year ("it's a long time"). Some responses nonsensical. Knows family's names. HEAD: Normal with no signs of trauma. LUNGS: Breath sounds equal, clear to auscultation bilaterally, no wheezes, no crackles, no accessory muscle use. HEART: Regular rate and rhythm, S1, S2 ABDOMEN: Soft, nontender, nondistended, normoactive bowel sounds EXTREMITIES: 2+ pulses, warm, well-perfused, no edema. NEUROLOGICAL: Cranial nerves II through XII grossly intact. Speech is clearly articulated; gait not observed. SKIN: SKIN: erythema and swelling of testicles worse, exquisitely tender Laboratory Results - last 24 hr 04/10/19 04/10/19 04/10/19 06:00 16:00 16:00 WBC 25.6 H RBC 5.27 Hgb 15.4 Hct 46.8 MCV 88.8 MCH 29.1 MCHC 32.8 RDW 13.2 Plt Count 348 D MPV 8.8 Absolute Neuts (auto) Neutrophils % Neutrophils % (Manual) 87.0 H Band Neutrophils % 4.0 Lymphocytes % Lymphocytes % (Manual) 4.0 L Monocytes % Monocytes % (Manual) 5 Eosinophils % Basophils % Platelet Estimate Adequate Sodium 143 Potassium 4.1 Chloride 108 H Carbon Dioxide 25 Anion Gap 10 BUN 31.0 H Creatinine 2.0 H Est GFR (CKD-EPI)AfAm 36.24 Est GFR (CKD-EPI)NonAf 31.26 POC Glucometer Random Glucose 62 L Hemoglobin A1c % 8.4 H Calcium 9.5 Magnesium 2.3 Total Bilirubin 0.7 AST 19 ALT 15 Alkaline Phosphatase 74 Total Protein 6.5 Albumin 3.6 04/10/19 04/10/19 04/10/19 17:05 17:51 20:10 WBC RBC Hgb Hct MCV MCH MCHC RDW Plt Count MPV Absolute Neuts (auto) Neutrophils % Neutrophils % (Manual) Band Neutrophils % Lymphocytes % Lymphocytes % (Manual) Monocytes % Monocytes % (Manual) Eosinophils % Basophils % Platelet Estimate Sodium Potassium Chloride Carbon Dioxide Anion Gap BUN Creatinine Est GFR (CKD-EPI)AfAm Est GFR (CKD-EPI)NonAf POC Glucometer 58 120 203 Random Glucose Hemoglobin A1c % Calcium Magnesium Total Bilirubin AST ALT Alkaline Phosphatase Total Protein Albumin 04/10/19 04/11/19 04/11/19 22:43 06:20 08:15 WBC 19.9 H RBC 4.98 Hgb 14.8 Hct 44.6 MCV 89.5 MCH 29.7 MCHC 33.2 RDW 13.4 Plt Count 310 MPV 8.0 Absolute Neuts (auto) 15.1 Neutrophils % 75.7 Neutrophils % (Manual) Band Neutrophils % Lymphocytes % 12.2 D Lymphocytes % (Manual) Monocytes % 7.5 Monocytes % (Manual) Eosinophils % 3.5 D Basophils % 1.1 D Platelet Estimate Sodium Potassium Chloride Carbon Dioxide Anion Gap BUN Creatinine Est GFR (CKD-EPI)AfAm Est GFR (CKD-EPI)NonAf POC Glucometer 238 231 Random Glucose Hemoglobin A1c % Calcium Magnesium Total Bilirubin AST ALT Alkaline Phosphatase Total Protein Albumin 04/11/19 04/11/19 08:15 11:22 WBC RBC Hgb Hct MCV MCH MCHC RDW Plt Count MPV Absolute Neuts (auto) Neutrophils % Neutrophils % (Manual) Band Neutrophils % Lymphocytes % Lymphocytes % (Manual) Monocytes % Monocytes % (Manual) Eosinophils % Basophils % Platelet Estimate Sodium 142 Potassium 3.8 Chloride 109 H Carbon Dioxide 23 Anion Gap 10 BUN 31.0 H Creatinine 2.2 H Est GFR (CKD-EPI)AfAm 32.29 Est GFR (CKD-EPI)NonAf 27.86 POC Glucometer 302 Random Glucose 228 H Hemoglobin A1c % Calcium 9.0 Magnesium 2.5 H Total Bilirubin 1.1 H AST 14 L ALT 14 Alkaline Phosphatase 66 Total Protein 6.0 L Albumin 3.3 L Active Medications Generic Name Dose Route Start Last Admin Trade Name Freq PRN Reason Stop Dose Admin Allopurinol 100 mg 04/11/19 10:00 04/11/19 09:02 Zyloprim - PO 100 mg MoWeFr@1000 [facility] Administration Amlodipine Besylate 10 mg 04/12/19 10:00 Norvasc - PO DAILY [facility] Atorvastatin Calcium 20 mg 04/09/19 22:00 04/10/19 21:27 Lipitor - PO 20 mg HS [facility] Administration Carvedilol 25 mg 04/09/19 10:00 04/10/19 21:27 Coreg - PO 25 mg BID [facility] Administration Docusate Sodium 100 mg 04/09/19 10:00 04/11/19 10:48 Colace - PO Not Given DAILY [facility] Duloxetine HCl 30 mg 04/09/19 10:00 04/11/19 09:02 Cymbalta - PO 30 mg BID [facility] Administration Ferrous Sulfate 325 mg 04/09/19 10:00 04/11/19 09:02 Feosol - PO 325 mg DAILY [facility] Administration Finasteride 5 mg 04/09/19 22:00 04/10/19 21:27 Proscar - PO 5 mg HS [facility] Administration 5 Fluconazole 100 mls @ 100 mls/hr 04/10/19 12:00 04/11/19 09:03 Diflucan 200 Mg/D5w Premixed Ivpb - IVPB 100 mls/hr DAILY [facility] Administration Piperacillin Sod/Tazobactam 50 mls @ 100 mls/hr 04/10/19 17:00 04/11/19 08:43 Sod 2.25 gm/ Dextrose IVPB 100 mls/hr Q6H-IV [facility] Administration Sodium Chloride 1,000 mls @ 75 mls/hr 04/11/19 10:45 04/11/19 11:50 Normal Saline - IV 75 mls/hr ASDIR [facility] Administration Insulin Aspart 1 vial 04/10/19 11:15 04/11/19 11:49 Novolog Vial Sliding Scale - SQ 8 units ACHS [facility] Administration Protocol Nystatin 1 applic 04/08/19 14:00 04/11/19 09:03 Mycostatin Cream - TP 1 applic BID [facility] Administration ASSESSMENT/PLAN: 78 year-old male with a H siginificant for HTN, HLD, Type II NIDDM, renal cancer s/p right nephrectomy, CKD, BPH, lower GI bleed (09/2018), gout, and Alzheimer's dementia. Admitted for acute right-sided orchitis, severe groin fungal rash with pustules. Acute right-sided orchitis Orchiepididymitis --WBC peaked 25.6k on 04/10, trending down 19.9k today, afebrile --US shows acute right-sided orchitis and bilateral epididymal cysts --CTAP and bilateral femurs negative for air/gas; no abscess --testicular erythema and swelling more pronounced today --C&G pending --discussed with Dr. Cartwright, continue Zosyn (04/10-->) and Fluconazole (04/10-->) --discussed with Dr. Trevizo, will see patient today Mass left groin/base of penis --mass was seen on US in ED on 04/01 --subsequently seen by Dr. Trevizo in office, cyst removed --urology consult pending; find out if cyst was sent for culture Fungal-type groin rash with pustules --rash improved --cultures negative to date --antibiotics as above --topical Nystatin --NO DIAPER Group B Strep UTI --04/01 culture (+) Group B Strep --antibiotics as above ARMANI on CKD Urinary retention BPH --Cr 1.2 on admission, has risen to 2.2 today --del rosario was dc'd this morning, 2 hours later >1000ccs on bladder scan --replace del rosario now --continue Proscar --urine studies pending --renal and urology following Hypertension --BP consistently elevated --increase amlodipine from 7.5 to 10mg daily, continue carvedilol Hyperlipidemia --continue statin Type II NIDDM --Novolog sliding scale coverage h/o lower GI diverticvular bleed Alzheimer's dementia --per family patient is at baseline functioning --continue donepezil, duloxetine Gout --continue allopurinol FEN Fluids: NS@75mL/hr Electrolytes: replete as indicated Nutrition: diabetic, low sodium DVT prophylaxis: avoid chemical prophylaxis due to recent diverticular bleed; SCDs, oob, ambulation Physical therapy Dispo: continues to require inpatient care. Full code. Visit type - Emergency Visit Emergency Visit: Yes ED Registration Date: 04/08/19 Care time: The patient presented to the Emergency Department on the above date and was hospitalized for further evaluation of their emergent condition. - New Patient This patient is new to me today: No - Critical Care Critical Care patient: No
--- NOTE | 2019-04-11 12:40 | PN ---
Progress Note, Physician History of Present Illness: patient stable in room says he feels much better eating well wbc trending down - Current Medication List Current Medications: Active Medications Allopurinol (Zyloprim -) 100 mg PO MoWeFr@1000 [facility] Last Admin: 04/11/19 09:02 Dose: 100 mg Amlodipine Besylate (Norvasc -) 10 mg PO DAILY [facility] Atorvastatin Calcium (Lipitor -) 20 mg PO HS [facility] Last Admin: 04/10/19 21:27 Dose: 20 mg Carvedilol (Coreg -) 25 mg PO BID [facility] Last Admin: 04/11/19 09:05 Dose: 25 mg Docusate Sodium (Colace -) 100 mg PO DAILY [facility] Last Admin: 04/11/19 10:48 Dose: Not Given Duloxetine HCl (Cymbalta -) 30 mg PO BID [facility] Last Admin: 04/11/19 09:02 Dose: 30 mg Ferrous Sulfate (Feosol -) 325 mg PO DAILY [facility] Last Admin: 04/11/19 09:02 Dose: 325 mg Finasteride (Proscar -) 5 mg PO HS [facility] Last Admin: 04/10/19 21:27 Dose: 5 mg Fluconazole (Diflucan 200 Mg/D5w Premixed Ivpb -) 100 mls @ 100 mls/hr IVPB DAILY [facility] Last Admin: 04/11/19 09:03 Dose: 100 mls/hr Piperacillin Sod/Tazobactam (Sod 2.25 gm/ Dextrose) 50 mls @ 100 mls/hr IVPB Q6H-IV [facility] Last Admin: 04/11/19 08:43 Dose: 100 mls/hr Sodium Chloride (Normal Saline -) 1,000 mls @ 75 mls/hr IV ASDIR [facility] Last Admin: 04/11/19 11:50 Dose: 75 mls/hr Insulin Aspart (Novolog Vial Sliding Scale -) 1 vial SQ ACHS [facility]; Protocol Last Admin: 04/11/19 11:49 Dose: 8 units Nystatin (Mycostatin Cream -) 1 applic TP BID [facility] Last Admin: 04/11/19 09:03 Dose: 1 applic - Objective Vital Signs: Vital Signs Temperature 97.9 F 04/11/19 10:40 Pulse Rate 78 04/11/19 10:40 Respiratory Rate 16 04/11/19 10:40 Blood Pressure 137/64 04/11/19 10:40 O2 Sat by Pulse Oximetry (%) 98 04/11/19 09:07 Constitutional: Yes: No Distress, Calm Cardiovascular: Yes: S1, S2 Respiratory: Yes: Regular, CTA Bilaterally Gastrointestinal: Yes: Normal Bowel Sounds, Soft Musculoskeletal: Yes: WNL Extremities: Yes: Other Neurological: Yes: Alert, Other Labs: CBC, BMP 04/11/19 08:15 04/11/19 08:15 INR, PTT INR 1.33 (0.82-1.09) H 04/09/19 07:49 Assessment/Plan 78 year-old male with a PMH siginificant for HTN, HLD, Type II NIDDM, renal cancer s/p right nephrectomy, CKD, BPH, lower GI bleed (09/2018), gout, and Alzheimer's dementia. Admitted for acute right-sided orchitis, severe groin fungal rash with pustules. Acute right-sided orchitis groin rash Fungal-type groin rash with pustules UTI Hypertension Hyperlipidemia Type II NIDDM CKD BPH dementia plan will add clinda continue zosyn rest as per the team monitor wbc
--- NOTE | 2019-04-11 13:12 | CONSULT ---
Consult - text type - Consultation Consultation Note: Renal Consult for Acute Kidney Injury This is a 78 year old gentleman with history of unilateral nephrectomy for RCC, hypertension, hyperlpidemia, CKD, BPH, gout and dementia who presented with dysuria, groin pain and found to have orichitis and developed acute kidney injury during the hospital admission. Pt has CKD at baseline (eGFR 56) and has only one kidney. Denies any NSAID use. No contrast exposure this admission. Has had del rosario cather in place up until this AM. Denies any fever or chills. No chest pain, abd pain, N/V/D. PMhx: as above Allergies: NKDA Family Hx: NC Social Hx: No T/A/D ROS: as per HPI Home Medications Medication Instructions Recorded Amlodipine Besylate 2.5 mg PO DAILY 04/01/19 Amlodipine Besylate 5 mg PO DAILY 04/01/19 Atorvastatin Ca [Lipitor] 20 mg PO DAILY 04/01/19 Carvedilol [Coreg -] 25 mg PO BID 04/01/19 Docusate Sodium [Colace -] 100 mg PO DAILY 04/01/19 Donepezil HCl 10 mg PO DAILY 04/01/19 Duloxetine HCl 30 mg PO BID 04/01/19 Empagliflozin [Jardiance] 25 mg PO DAILY 04/01/19 Ferrous Sulfate 325 mg PO DAILY 04/01/19 Glipizide 10 mg PO BID 04/01/19 Mupirocin Ointment [Bactroban] 1 applic TP TID 04/01/19 Sitagliptin Phosphate [Januvia] 100 mg PO DAILY 04/01/19 Allopurinol [Zyloprim -] 100 mg PO MOWEFR 04/08/19 Amoxicillin - [Amoxicillin 500mg 500 mg PO TID 04/08/19 Capsule -] Finasteride [Proscar] 5 mg PO HS 04/08/19 Vital Signs Temperature 97.9 F 04/11/19 10:40 Pulse Rate 78 04/11/19 10:40 Respiratory Rate 16 04/11/19 10:40 Blood Pressure 137/64 04/11/19 10:40 O2 Sat by Pulse Oximetry (%) 98 04/11/19 09:07 NAD Awake and alert neck supple, no JVD RRR, no M/R CTA, no rales or wheeze soft NT/ND + bladder distension no LE edema CBC, BMP 04/11/19 08:15 04/11/19 08:15 Current Medications Allopurinol (Zyloprim -) 100 mg PO MoWeFr@1000 [facility] Last Admin: 04/11/19 09:02 Dose: 100 mg Amlodipine Besylate (Norvasc -) 10 mg PO DAILY [facility] Atorvastatin Calcium (Lipitor -) 20 mg PO HS [facility] Last Admin: 04/10/19 21:27 Dose: 20 mg Carvedilol (Coreg -) 25 mg PO BID [facility] Last Admin: 04/11/19 09:05 Dose: 25 mg Docusate Sodium (Colace -) 100 mg PO DAILY [facility] Last Admin: 04/11/19 10:48 Dose: Not Given Duloxetine HCl (Cymbalta -) 30 mg PO BID [facility] Last Admin: 04/11/19 09:02 Dose: 30 mg Ferrous Sulfate (Feosol -) 325 mg PO DAILY [facility] Last Admin: 04/11/19 09:02 Dose: 325 mg Finasteride (Proscar -) 5 mg PO HS [facility] Last Admin: 04/10/19 21:27 Dose: 5 mg Fluconazole (Diflucan 200 Mg/D5w Premixed Ivpb -) 100 mls @ 100 mls/hr IVPB DAILY [facility] Last Admin: 04/11/19 09:03 Dose: 100 mls/hr Piperacillin Sod/Tazobactam (Sod 2.25 gm/ Dextrose) 50 mls @ 100 mls/hr IVPB Q6H-IV [facility] Last Admin: 04/11/19 08:43 Dose: 100 mls/hr Sodium Chloride (Normal Saline -) 1,000 mls @ 75 mls/hr IV ASDIR [facility] Last Admin: 04/11/19 11:50 Dose: 75 mls/hr Clindamycin Phosphate (Cleocin 300 Mg Premix Ivpb) 300 mg in 50 mls @ 100 mls/ hr IVPB Q8H-IV [facility]; Protocol Insulin Aspart (Novolog Vial Sliding Scale -) 1 vial SQ ACHS [facility]; Protocol Last Admin: 04/11/19 11:49 Dose: 8 units Nystatin (Mycostatin Cream -) 1 applic TP BID [facility] Last Admin: 04/11/19 09:03 Dose: 1 applic 78 year old gentleman with history of unilateral nephrectomy for RCC, hypertension, hyperlpidemia, CKD, BPH, gout and dementia who presented with dysuria, groin pain and found to have orichitis and developed acute kidney injury during the hospital admission. 1. Acute Kidney injury secondary to fluid shifts/Pre-renal injury vs. urinary retention vs. AIN 2. CKD stage 3 3. Orchitis 4. Hypertension 5. BPH Check urine studies for FENa, UPCR Check bladder scan to r/o retention urology follow up continue isotonic saline at present rate antibioitcs as per ID continue proscar, consider addition of Flomax if no contraindication Thank you Garland Guerrero DO
[2019-04-11] MEDS: CLINDAMYCIN 300 MG PREMIX IVPB 300 MG/50 ML BAG IVPB SCH ×2 (13:42→18:48)
[2019-04-11] MEDS: FINASTERIDE 5 MG TABLET (FP) PO SCH (21:21)
[2019-04-11] MEDS: ATORVASTATIN CA 20 MG TABLET (FP) PO SCH (21:21)
[2019-04-12] MEDS: CLINDAMYCIN 300 MG PREMIX IVPB 300 MG/50 ML BAG IVPB SCH ×3 (02:00→17:36)
[2019-04-12] MEDS: PIPERACILLIN/TAZOB 2.25 GM 2.25 GM in DEXTROSE 5%-WATER - 50 ML IVPB SCH ×4 (03:51→21:16)
[2019-04-12 08:25] LABS: BASO % 0.5 % (0-2.0); HEMATOCRIT 37.9 % (35.4-49); HEMOGLOBIN 12.6 GM/dl (11.7-16.9); MCH 29.9 pg (25.7-33.7); MCHC 33.3 g/dl (32.0-35.9); MEAN CELL VOLUME 89.9 fl (80-96); MEAN PLT VOLUME 8.8 fl (7.5-11.1); NEUT % 65.5 % (42.8-82.8); PLATELET COUNT 239 K/MM3 (134-434); RBC 4.22 M/mm3 (4.00-5.60); RDW 13.1 % (11.9-15.9); WHITE BLOOD COUNT 13.7 K/mm3 (4.0-10.8)
[2019-04-12 08:57] LABS: ALBUMIN 2.8 g/dl (3.4-5.0); BILIRUBIN,TOTAL 0.7 mg/dl (0.2-1); CALCIUM 8.4 mg/dl (8.5-10); CREATININE 1.9 mg/dl (0.55-1.3); MAGNESIUM 2.1 mg/dL (1.8-2.4); POTASSIUM 3.4 mmol/L (3.5-5.1)
[2019-04-12] MEDS ORDERED: PT OWN MED DRAWER 7, Y5N ONE ×2 (09:26→16:22)
[2019-04-12] MEDS ORDERED: DEXTROSE 5%-WATER - 50 ML IVPB ONE ×3 (09:27→20:41)
[2019-04-12] MEDS ORDERED: PIPERACILLIN/TAZOBACTAM 2.25 GM VIAL IVPB ONE ×3 (09:27→20:41)
[2019-04-12] MEDS: CARVEDILOL 25 MG TABLET (FP) PO SCH ×2 (09:33→21:16)
[2019-04-12] MEDS: FLUCONAZOLE 200 MG/D5W 100 ML IVPB SCH (09:33)
[2019-04-12] MEDS: FERROUS SO4 325 MG TABLET (FP) PO SCH (09:33)
[2019-04-12] MEDS: DOCUSATE SODIUM 100 MG CAPSULE (FP) PO SCH (09:33)
[2019-04-12] MEDS: DULoxetine HCL 30 MG CAPSULE.DR PO SCH ×2 (09:33→21:16)
[2019-04-12] MEDS: amLODIPine BESYLATE 10 MG TABLET (FP) PO SCH (09:33)
[2019-04-12] MEDS: NYSTATIN 100,000 UNIT/GM TOPICAL CREAM 15 GM TUBE TP SCH ×2 (09:34→22:41)
--- NOTE | 2019-04-12 09:35 | PN ---
Physical Exam: SUBJECTIVE: Patient seen and examined at bedside. OBJECTIVE: Vital Signs Period Temp Pulse Resp BP Sys/Gatica Pulse Ox Last 24 Hr 97.7 F-98 F 63-78 16-18 124-137/53-65 97-99 GENERAL: The patient is awake, alert. A&Ox2. HEAD: Normal with no signs of trauma. LUNGS: CTA HEART: Regular rate and rhythm, S1, S2 ABDOMEN: Soft, nontender, nondistended, normoactive bowel sounds EXTREMITIES: 2+ pulses, warm, well-perfused, no edema. NEUROLOGICAL: Cranial nerves II through XII grossly intact. Speech is clearly articulated; gait not observed. SKIN: SKIN: Laboratory Results - last 24 hr 04/09/19 04/11/19 04/11/19 09:00 11:22 13:30 WBC RBC Hgb Hct MCV MCH MCHC RDW Plt Count MPV Absolute Neuts (auto) Neutrophils % Lymphocytes % Monocytes % Eosinophils % Basophils % Sodium Potassium Chloride Carbon Dioxide Anion Gap BUN Creatinine Est GFR (CKD-EPI)AfAm Est GFR (CKD-EPI)NonAf POC Glucometer 302 Random Glucose Calcium Magnesium Total Bilirubin AST ALT Alkaline Phosphatase Total Protein Albumin Ur Random Creatinine U Random Total Protein 31.2 H C. trachomatis (LAURIE) Negative N. gonorrhoeae (LAURIE) Negative 04/11/19 04/11/19 04/11/19 13:30 16:19 21:26 WBC RBC Hgb Hct MCV MCH MCHC RDW Plt Count MPV Absolute Neuts (auto) Neutrophils % Lymphocytes % Monocytes % Eosinophils % Basophils % Sodium Potassium Chloride Carbon Dioxide Anion Gap BUN Creatinine Est GFR (CKD-EPI)AfAm Est GFR (CKD-EPI)NonAf POC Glucometer 252 179 Random Glucose Calcium Magnesium Total Bilirubin AST ALT Alkaline Phosphatase Total Protein Albumin Ur Random Creatinine 58.2 U Random Total Protein C. trachomatis (LAURIE) N. gonorrhoeae (LAURIE) 04/12/19 04/12/19 04/12/19 06:49 07:06 07:06 WBC 13.7 H RBC 4.22 Hgb 12.6 Hct 37.9 D MCV 89.9 MCH 29.9 MCHC 33.3 RDW 13.1 Plt Count 239 D MPV 8.8 Absolute Neuts (auto) 9.0 Neutrophils % 65.5 Lymphocytes % 19.0 D Monocytes % 9.0 Eosinophils % 6.0 H Basophils % 0.5 Sodium 139 Potassium 3.4 L Chloride 108 H Carbon Dioxide 25 Anion Gap 6 L BUN 30.0 H Creatinine 1.9 H Est GFR (CKD-EPI)AfAm 38.55 Est GFR (CKD-EPI)NonAf 33.26 POC Glucometer 149 Random Glucose 143 H Calcium 8.4 L Magnesium 2.1 Total Bilirubin 0.7 AST 14 L ALT 13 Alkaline Phosphatase 58 Total Protein 5.0 L Albumin 2.8 L Ur Random Creatinine U Random Total Protein C. trachomatis (LAURIE) N. gonorrhoeae (LAURIE) Active Medications Generic Name Dose Route Start Last Admin Trade Name Freq PRN Reason Stop Dose Admin Allopurinol 100 mg 04/11/19 10:00 04/11/19 09:02 Zyloprim - PO 100 mg MoWeFr@1000 [facility] Administration Amlodipine Besylate 10 mg 04/12/19 10:00 Norvasc - PO DAILY [facility] Atorvastatin Calcium 20 mg 04/09/19 22:00 04/11/19 21:21 Lipitor - PO 20 mg HS [facility] Administration Carvedilol 25 mg 04/09/19 10:00 04/11/19 21:21 Coreg - PO 25 mg BID [facility] Administration Docusate Sodium 100 mg 04/09/19 10:00 04/11/19 10:48 Colace - PO Not Given DAILY [facility] Duloxetine HCl 30 mg 04/09/19 10:00 04/11/19 21:21 Cymbalta - PO 30 mg BID [facility] Administration Ferrous Sulfate 325 mg 04/09/19 10:00 04/11/19 09:02 Feosol - PO 325 mg DAILY [facility] Administration Finasteride 5 mg 04/09/19 22:00 04/11/19 21:21 Proscar - PO 5 mg HS [facility] Administration Fluconazole 100 mls @ 100 mls/hr 04/10/19 12:00 04/11/19 09:03 Diflucan 200 Mg/D5w Premixed Ivpb - IVPB 100 mls/hr DAILY [facility] Administration Piperacillin Sod/Tazobactam 50 mls @ 100 mls/hr 04/10/19 17:00 04/12/19 03:51 Sod 2.25 gm/ Dextrose IVPB 100 mls/hr Q6H-IV [facility] Administration Sodium Chloride 1,000 mls @ 75 mls/hr 04/11/19 10:45 04/11/19 11:50 Normal Saline - IV 75 mls/hr ASDIR [facility] Administration Clindamycin Phosphate 300 mg in 50 mls @ 100 mls/hr 04/11/19 12:45 04/12/19 02:00 Cleocin 300 Mg Premix Ivpb IVPB 100 mls/hr Q8H-IV [facility] Administration Protocol Insulin Aspart 1 vial 04/10/19 11:15 04/11/19 22:51 Novolog Vial Sliding Scale - SQ 2 units ACHS [facility] Administration Protocol Nystatin 1 applic 04/08/19 14:00 04/11/19 21:22 Mycostatin Cream - TP 1 applic BID [facility] Administration ASSESSMENT/PLAN 78 year-old male with a PMH siginificant for HTN, HLD, Type II NIDDM, renal cancer s/p right nephrectomy, CKD, BPH, lower GI bleed (09/2018), gout, and Alzheimer's dementia. Admitted for acute right-sided orchitis, severe groin fungal rash. Acute right-sided orchitis Orchiepididymitis --WBC peaked 25.6k on 04/10, trending down 13.7k today, afebrile --US shows acute right-sided orchitis and bilateral epididymal cysts --CTAP and bilateral femurs negative for air/gas; no abscess --testicular erythema and swelling persist --C&G negative --continue Zosyn (04/10-->), Fluconazole (04/10-->), and Clinda (04/11-->) --urology consult still pending Mass left groin/base of penis --mass was seen on US in ED on 04/01 --subsequently seen by Dr. Trevizo in office, cyst removed --urology consult pending; find out if cyst was sent for culture Fungal-type groin rash with pustules --rash improved --cultures (+) yeast and (+) staph --antibiotics as above --topical Nystatin --NO DIAPER Group B Strep UTI --04/01 culture (+) Group B Strep --antibiotics as above ARMANI on CKD Urinary retention BPH --Cr 1.2 on admission, peak 2.2 on 04/11, trending down 1.9 today --failed voiding trial on 04/11, del rosario replaced --continue Proscar --renal and urology following Hypertension --BP better controlled --continue amlodipine, carvedilol Hyperlipidemia --continue statin Type II NIDDM --Novolog sliding scale coverage h/o lower GI diverticvular bleed Alzheimer's dementia --periods of agitation, per family patient is at baseline functioning --continue donepezil, duloxetine Gout --continue allopurinol FEN Fluids: NS@75mL/hr Electrolytes: replete as indicated Nutrition: diabetic, low sodium DVT prophylaxis: avoid chemical prophylaxis due to recent diverticular bleed; SCDs, oob, ambulation Physical therapy: walked 100 feet on 04/11 Dispo: continues to require inpatient care. Full code. Visit type - Emergency Visit Emergency Visit: Yes ED Registration Date: 04/08/19 Care time: The patient presented to the Emergency Department on the above date and was hospitalized for further evaluation of their emergent condition. - New Patient This patient is new to me today: No - Critical Care Critical Care patient: No
[2019-04-12] MEDS: INSULIN SLIDING SCALE (NOVOLOG) 1 VIAL SQ SCH ×3 (10:39→16:40)
[2019-04-12] MEDS ORDERED: INSULIN (NOVOLOG) ASPART 100 UNITS/ML 10ML VIAL ONE ×2 (11:58→16:43)
[2019-04-12] MEDS: SODIUM CHLORIDE 1,000 ML IV SCH (13:00)
--- NOTE | 2019-04-12 15:25 | PN ---
Progress Note (short form) - Note Progress Note: Renal follow up for ARMANI Pt seen and examined at the bedside awake and alert offers no acute complaints had del rosario placed yesterday after he was noted to have large bladder volume with inability to void denies any sob, chest pain, fever o chills Vital Signs Temperature 97.9 F 04/12/19 14:06 Pulse Rate 61 04/12/19 14:06 Respiratory Rate 18 04/12/19 14:06 Blood Pressure 112/51 L 04/12/19 14:06 O2 Sat by Pulse Oximetry (%) 100 04/12/19 14:06 Vital Signs Temperature 97.9 F 04/12/19 14:06 Pulse Rate 61 04/12/19 14:06 Respiratory Rate 18 04/12/19 14:06 Blood Pressure 112/51 L 04/12/19 14:06 O2 Sat by Pulse Oximetry (%) 100 04/12/19 14:06 NAD Awake and alert neck supple, no JVD RRR, no M/R CTA, no rales or wheeze soft NT/ND + bladder distension no LE edema Del Rosario in place CBC, BMP 04/12/19 07:06 04/12/19 07:06 Current Medications Allopurinol (Zyloprim -) 100 mg PO MoWeFr@1000 [facility] Last Admin: 04/11/19 09:02 Dose: 100 mg Amlodipine Besylate (Norvasc -) 10 mg PO DAILY [facility] Last Admin: 04/12/19 09:33 Dose: 10 mg Atorvastatin Calcium (Lipitor -) 20 mg PO [facility] Last Admin: 04/11/19 21:21 Dose: 20 mg Carvedilol (Coreg -) 25 mg PO BID [facility] Last Admin: 04/12/19 09:33 Dose: 25 mg Docusate Sodium (Colace -) 100 mg PO DAILY [facility] Last Admin: 04/12/19 09:33 Dose: 100 mg Duloxetine HCl (Cymbalta -) 30 mg PO BID [facility] Last Admin: 04/12/19 09:33 Dose: 30 mg Ferrous Sulfate (Feosol -) 325 mg PO DAILY [facility] Last Admin: 04/12/19 09:33 Dose: 325 mg Finasteride (Proscar -) 5 mg PO [facility] Last Admin: 04/11/19 21:21 Dose: 5 mg Fluconazole (Diflucan 200 Mg/D5w Premixed Ivpb -) 100 mls @ 100 mls/hr IVPB DAILY [facility] Last Admin: 04/12/19 09:33 Dose: 100 mls/hr Piperacillin Sod/Tazobactam (Sod 2.25 gm/ Dextrose) 50 mls @ 100 mls/hr IVPB Q6H-IV [facility] Last Admin: 04/12/19 09:33 Dose: 100 mls/hr Sodium Chloride (Normal Saline -) 1,000 mls @ 75 mls/hr IV ASDIR [facility] Last Admin: 04/11/19 11:50 Dose: 75 mls/hr Clindamycin Phosphate (Cleocin 300 Mg Premix Ivpb) 300 mg in 50 mls @ 100 mls/ hr IVPB Q8H-IV [facility]; Protocol Last Admin: 04/12/19 09:33 Dose: 100 mls/hr Insulin Aspart (Novolog Vial Sliding Scale -) 1 vial SQ ACHS [facility]; Protocol Last Admin: 04/12/19 11:45 Dose: 10 units Nystatin (Mycostatin Cream -) 1 applic TP BID [facility] Last Admin: 04/12/19 09:34 Dose: 1 applic 78 year old gentleman with history of unilateral nephrectomy for RCC, hypertension, hyperlpidemia, CKD, BPH, gout and dementia who presented with dysuria, groin pain and found to have orichitis and developed acute kidney injury during the hospital admission. 1. Acute Kidney injury secondary to fluid shifts/Pre-renal injury vs. urinary retention vs. AIN 2. CKD stage 3 3. Orchitis 4. Hypertension 5. BPH Renal function with moderate improvement in the last 24 hours and urine output is good UA is bland and unlikely that patient has a acute GN no significant proteniuria noted Mantain del rosario for now as BUN/Cr not at baseline antibioitcs as per ID continue proscar, consider addition of Flomax if no contraindication urology follow up Thank you Garland Guerrero DO
[2019-04-12] MEDS: ATORVASTATIN CA 20 MG TABLET (FP) PO SCH (21:16)
[2019-04-12] MEDS: FINASTERIDE 5 MG TABLET (FP) PO SCH (21:16)
[2019-04-13] MEDS: CLINDAMYCIN 300 MG PREMIX IVPB 300 MG/50 ML BAG IVPB SCH ×3 (02:41→19:29)
[2019-04-13] MEDS: PIPERACILLIN/TAZOB 2.25 GM 2.25 GM in DEXTROSE 5%-WATER - 50 ML IVPB SCH ×4 (02:41→22:35)
[2019-04-13] MEDS: INSULIN SLIDING SCALE (NOVOLOG) 1 VIAL SQ SCH ×4 (02:41→22:21)
[2019-04-13] MEDS ORDERED: INSULIN (NOVOLOG) ASPART 100 UNITS/ML 10ML VIAL ONE (07:21)
[2019-04-13 07:37] LABS: HEMOGLOBIN 12.5 GM/dl (11.7-16.9); RBC 4.27 M/mm3 (4.00-5.60); WHITE BLOOD COUNT 12.7 K/mm3 (4.0-10.8)
[2019-04-13 07:38] LABS: BASO % 0.5 % (0-2.0); EOS % 5.2 % (0-4.5); HEMATOCRIT 38.1 % (35.4-49); LYMPH % 18.6 % (8-40); MCH 29.3 pg (25.7-33.7); MCHC 32.9 g/dl (32.0-35.9); MEAN CELL VOLUME 89.2 fl (80-96); NEUT % 65.7 % (42.8-82.8); PLATELET COUNT 249 K/MM3 (134-434); RDW 12.9 % (11.9-15.9)
[2019-04-13 07:48] LABS: ALBUMIN 2.9 g/dl (3.4-5.0); BILIRUBIN,TOTAL 0.7 mg/dl (0.2-1); CALCIUM 8.6 mg/dl (8.5-10); CREATININE 1.5 mg/dl (0.55-1.3); MAGNESIUM 1.8 mg/dL (1.8-2.4); POTASSIUM 3.3 mmol/L (3.5-5.1); TOT PROT 5.3 g/dl (6.4-8.2)
[2019-04-13] MEDS ORDERED: DEXTROSE 5%-WATER - 50 ML IVPB ONE ×2 (09:34→21:47)
[2019-04-13] MEDS ORDERED: PIPERACILLIN/TAZOBACTAM 2.25 GM VIAL IVPB ONE ×2 (09:34→21:47)
[2019-04-13] MEDS: DULoxetine HCL 30 MG CAPSULE.DR PO SCH ×2 (09:37→22:21)
[2019-04-13] MEDS: FERROUS SO4 325 MG TABLET (FP) PO SCH (09:38)
[2019-04-13] MEDS: amLODIPine BESYLATE 10 MG TABLET (FP) PO SCH (09:38)
[2019-04-13] MEDS: CARVEDILOL 25 MG TABLET (FP) PO SCH ×2 (09:38→22:24)
[2019-04-13] MEDS: ALLOPURINOL 100 MG TABLET (FP) PO SCH (09:38)
[2019-04-13] MEDS: NYSTATIN 100,000 UNIT/GM TOPICAL CREAM 15 GM TUBE TP SCH ×2 (09:57→22:22)
--- NOTE | 2019-04-13 10:10 | PN ---
Progress Note, Physician History of Present Illness: improving dementia wbc trending down - Current Medication List Current Medications: Active Medications Allopurinol (Zyloprim -) 100 mg PO MoWeFr@1000 [facility] Last Admin: 04/13/19 09:38 Dose: 100 mg Amlodipine Besylate (Norvasc -) 10 mg PO DAILY [facility] Last Admin: 04/13/19 09:38 Dose: 10 mg Atorvastatin Calcium (Lipitor -) 20 mg PO HS [facility] Last Admin: 04/12/19 21:16 Dose: 20 mg Carvedilol (Coreg -) 25 mg PO BID [facility] Last Admin: 04/13/19 09:38 Dose: 25 mg Docusate Sodium (Colace -) 100 mg PO DAILY [facility] Last Admin: 04/12/19 09:33 Dose: 100 mg Duloxetine HCl (Cymbalta -) 30 mg PO BID [facility] Last Admin: 04/13/19 09:37 Dose: 30 mg Ferrous Sulfate (Feosol -) 325 mg PO DAILY [facility] Last Admin: 04/13/19 09:38 Dose: 325 mg Finasteride (Proscar -) 5 mg PO [facility] Last Admin: 04/12/19 21:16 Dose: 5 mg Piperacillin Sod/Tazobactam (Sod 2.25 gm/ Dextrose) 50 mls @ 100 mls/hr IVPB Q6H-IV [facility] Last Admin: 04/13/19 09:38 Dose: 100 mls/hr Sodium Chloride (Normal Saline -) 1,000 mls @ 75 mls/hr IV ASDIR [facility] Last Admin: 04/12/19 13:00 Dose: 75 mls/hr Clindamycin Phosphate (Cleocin 300 Mg Premix Ivpb) 300 mg in 50 mls @ 100 mls/ hr IVPB Q8H-IV [facility]; Protocol Last Admin: 04/13/19 02:41 Dose: 100 mls/hr Fluconazole (Diflucan 200 Mg/Ns Premixed Ivpb -) 100 mls @ 100 mls/hr IVPB DAILY [facility] Insulin Aspart (Novolog Vial Sliding Scale -) 1 vial SQ ACHS [facility]; Protocol Last Admin: 04/13/19 02:41 Dose: Not Given Nystatin (Mycostatin Cream -) 1 applic TP BID [facility] Last Admin: 04/13/19 09:57 Dose: 1 applic - Objective Vital Signs: Vital Signs Temperature 98.6 F 04/13/19 09:23 Pulse Rate 74 04/13/19 09:23 Respiratory Rate 18 04/13/19 09:23 Blood Pressure 145/57 L 04/13/19 09:23 O2 Sat by Pulse Oximetry (%) 99 04/13/19 09:23 Constitutional: Yes: No Distress, Calm Cardiovascular: Yes: S1, S2 Respiratory: Yes: Regular, CTA Bilaterally Gastrointestinal: Yes: Normal Bowel Sounds, Soft Genitourinary: Yes: Other (rash and tenderness improving) Musculoskeletal: Yes: WNL Extremities: Yes: WNL Neurological: Yes: Alert, Oriented Psychiatric: Yes: Alert, Oriented Labs: CBC, BMP 04/13/19 07:20 04/13/19 07:20 INR, PTT INR 1.33 (0.82-1.09) H 04/09/19 07:49 Assessment/Plan 78 year-old male with a PMH siginificant for HTN, HLD, Type II NIDDM, renal cancer s/p right nephrectomy, CKD, BPH, lower GI bleed (09/2018), gout, and Alzheimer's dementia. Admitted for acute right-sided orchitis, severe groin fungal rash with pustules. Acute right-sided orchitis groin rash Fungal-type groin rash with pustules UTI Hypertension Hyperlipidemia Type II NIDDM CKD BPH dementia plan continue abx monitor wbc rest as per the team
--- NOTE | 2019-04-13 10:11 | PN ---
Progress Note, Physician History of Present Illness: patient stable uncooperative foleys draianing a lot - Current Medication List Current Medications: Active Medications Allopurinol (Zyloprim -) 100 mg PO MoWeFr@1000 [facility] Last Admin: 04/13/19 09:38 Dose: 100 mg Amlodipine Besylate (Norvasc -) 10 mg PO DAILY [facility] Last Admin: 04/13/19 09:38 Dose: 10 mg Atorvastatin Calcium (Lipitor -) 20 mg PO HS [facility] Last Admin: 04/12/19 21:16 Dose: 20 mg Carvedilol (Coreg -) 25 mg PO BID [facility] Last Admin: 04/13/19 09:38 Dose: 25 mg Docusate Sodium (Colace -) 100 mg PO DAILY [facility] Last Admin: 04/12/19 09:33 Dose: 100 mg Duloxetine HCl (Cymbalta -) 30 mg PO BID [facility] Last Admin: 04/13/19 09:37 Dose: 30 mg Ferrous Sulfate (Feosol -) 325 mg PO DAILY [facility] Last Admin: 04/13/19 09:38 Dose: 325 mg Finasteride (Proscar -) 5 mg PO HS [facility] Last Admin: 04/12/19 21:16 Dose: 5 mg Piperacillin Sod/Tazobactam (Sod 2.25 gm/ Dextrose) 50 mls @ 100 mls/hr IVPB Q6H-IV [facility] Last Admin: 04/13/19 09:38 Dose: 100 mls/hr Sodium Chloride (Normal Saline -) 1,000 mls @ 75 mls/hr IV ASDIR [facility] Last Admin: 04/12/19 13:00 Dose: 75 mls/hr Clindamycin Phosphate (Cleocin 300 Mg Premix Ivpb) 300 mg in 50 mls @ 100 mls/ hr IVPB Q8H-IV [facility]; Protocol Last Admin: 04/13/19 02:41 Dose: 100 mls/hr Fluconazole (Diflucan 200 Mg/Ns Premixed Ivpb -) 100 mls @ 100 mls/hr IVPB DAILY [facility] Insulin Aspart (Novolog Vial Sliding Scale -) 1 vial SQ ACHS [facility]; Protocol Last Admin: 04/13/19 02:41 Dose: Not Given Nystatin (Mycostatin Cream -) 1 applic TP BID [facility] Last Admin: 04/13/19 09:57 Dose: 1 applic - Objective Vital Signs: Vital Signs Temperature 98.6 F 04/13/19 09:23 Pulse Rate 74 04/13/19 09:23 Respiratory Rate 18 04/13/19 09:23 Blood Pressure 145/57 L 04/13/19 09:23 O2 Sat by Pulse Oximetry (%) 99 04/13/19 09:23 Constitutional: Yes: No Distress, Calm, Other (uncooperative) Cardiovascular: Yes: S1, S2 Respiratory: Yes: Regular, CTA Bilaterally Gastrointestinal: Yes: Normal Bowel Sounds, Soft Musculoskeletal: Yes: WNL Extremities: Yes: Other Neurological: Yes: Alert, Other (dementia) Labs: CBC, BMP 04/13/19 07:20 04/13/19 07:20 INR, PTT INR 1.33 (0.82-1.09) H 04/09/19 07:49 Assessment/Plan 78 year-old male with a PMH siginificant for HTN, HLD, Type II NIDDM, renal cancer s/p right nephrectomy, CKD, BPH, lower GI bleed (09/2018), gout, and Alzheimer's dementia. Admitted for acute right-sided orchitis, severe groin fungal rash with pustules. Acute right-sided orchitis groin rash Fungal-type groin rash with pustules UTI Hypertension Hyperlipidemia Type II NIDDM CKD BPH dementia plan continue abx monitor wbc
[2019-04-13] MEDS: DOCUSATE SODIUM 100 MG CAPSULE (FP) PO SCH (10:25)
[2019-04-13] MEDS: POTASSIUM CHLORIDE TABS 20 MEQ TABLET.ER (FP) PO SCH ×2 (12:37→17:44)
--- NOTE | 2019-04-13 12:49 | DS ---
Physical Exam: SUBJECTIVE: Patient seen and examined OBJECTIVE: Vital Signs Period Temp Pulse Resp BP Sys/Gatica Pulse Ox Last 24 Hr 97.9 F-98.6 F 61-74 18-18 112-148/51-63 95-100 PHYSICAL EXAM GENERAL: The patient is awake, alert, and fully oriented, in no acute distress. HEAD: Normal with no signs of trauma. EYES: PERRL, extraocular movements intact, sclera anicteric, conjunctiva clear. ENT: Ears normal, nares patent, oropharynx clear without exudates, moist mucous membranes. NECK: Trachea midline, full range of motion, supple. LUNGS: Breath sounds equal, clear to auscultation bilaterally, no wheezes, no crackles, no accessory muscle use. HEART: Regular rate and rhythm, S1, S2 without murmur, rub or gallop. ABDOMEN: Soft, nontender, nondistended, normoactive bowel sounds, no guarding, no rebound, no hepatosplenomegaly, no masses. EXTREMITIES: 2+ pulses, warm, well-perfused, no edema. NEUROLOGICAL: Cranial nerves II through XII grossly intact. Normal speech, gait not observed. PSYCH: Normal mood, normal affect. SKIN: Warm, dry, normal turgor, no rashes or lesions noted. LABS Laboratory Results - last 24 hr 04/12/19 04/12/19 04/12/19 11:53 12:50 16:39 WBC RBC Hgb Hct MCV MCH MCHC RDW Plt Count MPV Absolute Neuts (auto) Neutrophils % Lymphocytes % Monocytes % Eosinophils % Basophils % Sodium Potassium Chloride Carbon Dioxide Anion Gap BUN Creatinine Est GFR (CKD-EPI)AfAm Est GFR (CKD-EPI)NonAf POC Glucometer 366 191 Random Glucose Calcium Magnesium Total Bilirubin AST ALT Alkaline Phosphatase Total Protein Albumin Ur Random Urea Nitrogn 472 04/12/19 04/13/19 04/13/19 20:47 06:22 07:20 WBC 12.7 H RBC 4.27 Hgb 12.5 Hct 38.1 MCV 89.2 MCH 29.3 MCHC 32.9 RDW 12.9 Plt Count 249 MPV 9.0 Absolute Neuts (auto) 8.2 Neutrophils % 65.7 Lymphocytes % 18.6 Monocytes % 10.0 Eosinophils % 5.2 H Basophils % 0.5 Sodium Potassium Chloride Carbon Dioxide Anion Gap BUN Creatinine Est GFR (CKD-EPI)AfAm Est GFR (CKD-EPI)NonAf POC Glucometer 140 227 Random Glucose Calcium Magnesium Total Bilirubin AST ALT Alkaline Phosphatase Total Protein Albumin Ur Random Urea Nitrogn 04/13/19 04/13/19 07:20 12:05 WBC RBC Hgb Hct MCV MCH MCHC RDW Plt Count MPV Absolute Neuts (auto) Neutrophils % Lymphocytes % Monocytes % Eosinophils % Basophils % Sodium 139 Potassium 3.3 L Chloride 105 Carbon Dioxide 27 Anion Gap 7 L BUN 24.0 H Creatinine 1.5 H Est GFR (CKD-EPI)AfAm 51.31 Est GFR (CKD-EPI)NonAf 44.27 POC Glucometer 206 Random Glucose 215 H Calcium 8.6 Magnesium 1.8 Total Bilirubin 0.7 AST 14 L ALT 13 Alkaline Phosphatase 55 Total Protein 5.3 L Albumin 2.9 L Ur Random Urea Nitrogn HOSPITAL COURSE: Date of Admission:04/08/19 Date of Discharge: 04/13/19 Minutes to complete discharge: 35 Discharge Summary Reason For Visit: CANDIADIASIS/CELLULITIS Current Active Problems Candidiasis (Acute) Cellulitis (Acute) Condition: Improved - Instructions Diet, Activity, Other Instructions: Patient is being discharged to your facility with a PICC line for administration of IV antibiotics as set forth in this discharge packet. Patient will need to be seen by his PCP Dr. Martinez when the antibiotics are complete. Patient is also being discharged with a del rosario catheter. He will need to be seen by his urologist Dr. Trevizo. Referrals: Vincenzo Cooley MD [Staff Physician] - Disposition: [facility] - Home Medications Comprehensive Discharge Medication List: Ambulatory Orders Atorvastatin Ca [Lipitor] 20 mg PO DAILY 04/01/19 Carvedilol [Coreg -] 25 mg PO BID 04/01/19 Docusate Sodium [Colace -] 100 mg PO DAILY 04/01/19 Duloxetine HCl 30 mg PO BID 04/01/19 Empagliflozin [Jardiance] 25 mg PO DAILY 04/01/19 Ferrous Sulfate 325 mg PO DAILY 04/01/19 Glipizide 10 mg PO BID 04/01/19 Mupirocin Ointment [Bactroban 2% Ointment -] 1 applic TP TID 04/01/19 Sitagliptin Phosphate [Januvia] 100 mg PO DAILY 04/01/19 Allopurinol [Zyloprim -] 100 mg PO MOWEFR 04/08/19 Finasteride [Proscar] 5 mg PO HS 04/08/19 Amlodipine Besylate 10 mg PO DAILY #30 tablet 04/13/19 Clindamycin in 0.9 % Sod Chlor [Clindamycin 300 mg/50 ml-Ns] 300 mg IV Q8H #36 vial 04/13/19 Fluconazole in NaCl,Iso-Osm [Fluconazole-NaCl 200 mg/100 ml] 200 mg IV DAILY # 36 vial 04/13/19 Nystatin Cream [Mycostatin Cream -] 1 applic TP BID applic 04/13/19 Piperacillin Sodium/Tazobactam [Zosyn 3.375 Gram Vial] 3.375 gm IV Q8H #30 vial 04/13/19 This patient is new to me today: No Emergency Visit: Yes ED Registration Date: 04/08/19 Care time: The patient presented to the Emergency Department on the above date and was hospitalized for further evaluation of their emergent condition. Critical Care patient: No - Discharge Referral Referred to [facility] Med P.C.: No
[2019-04-13] MEDS: SODIUM CHLORIDE 1,000 ML IV SCH (19:28)
[2019-04-13] MEDS: FLUCONAZOLE 200 MG/NS 100 ML IVPB SCH (19:30)
[2019-04-13] MEDS ORDERED: AMOX TR/POT CLAV 875MG/125MG TABLETS (FP) PO ONE (22:15)
[2019-04-13] MEDS: FINASTERIDE 5 MG TABLET (FP) PO SCH (22:21)
[2019-04-13] MEDS: FLUCONAZOLE 100 MG TABLET (UD) PO SCH (22:22)
[2019-04-13] MEDS: CLINDAMYCIN HCL 150 MG CAPSULE (FP) PO SCH (22:22)
[2019-04-13] MEDS: ATORVASTATIN CA 20 MG TABLET (FP) PO SCH (22:24)
[2019-04-14] MEDS: CLINDAMYCIN 300 MG PREMIX IVPB 300 MG/50 ML BAG IVPB SCH ×2 (06:56→13:47)
[2019-04-14] MEDS: PIPERACILLIN/TAZOB 2.25 GM 2.25 GM in DEXTROSE 5%-WATER - 50 ML IVPB SCH ×3 (06:56→14:24)
[2019-04-14] MEDS: INSULIN SLIDING SCALE (NOVOLOG) 1 VIAL SQ SCH ×2 (06:57→13:46)
[2019-04-14] MEDS: CLINDAMYCIN HCL 150 MG CAPSULE (FP) PO SCH ×2 (06:57→13:50)
[2019-04-14] MEDS ORDERED: AMOX TR/POT CLAV 875MG/125MG TABLETS (FP) PO SCH (08:00)
[2019-04-14] MEDS: NYSTATIN 100,000 UNIT/GM TOPICAL CREAM 15 GM TUBE TP SCH (09:00)
[2019-04-14] MEDS: CARVEDILOL 25 MG TABLET (FP) PO SCH (09:00)
[2019-04-14] MEDS: amLODIPine BESYLATE 10 MG TABLET (FP) PO SCH (09:03)
[2019-04-14] MEDS ORDERED: diazePAM 5 MG TABLET PO ONE (09:05)
[2019-04-14] MEDS ORDERED: PORTA CATH FLUSH 10 ML IVPUSH PRN (09:07)
[2019-04-14] MEDS: FLUCONAZOLE 100 MG TABLET (UD) PO SCH (10:00)
[2019-04-14] MEDS: FERROUS SO4 325 MG TABLET (FP) PO SCH (10:49)
--- NOTE | 2019-04-14 13:12 | PN ---
Progress Note (short form) - Note Progress Note: Renal follow up for ARMANI Pt seen and examined no acute complaints making urine via del rosario for d/c to rehab today Vital Signs Temperature 97.8 F 04/14/19 06:00 Pulse Rate 82 04/14/19 06:00 Respiratory Rate 18 04/14/19 06:00 Blood Pressure 163/67 04/14/19 06:00 O2 Sat by Pulse Oximetry (%) 97 04/13/19 22:00 Intake & Output 04/11/19 04/12/19 04/13/19 04/14/19 23:59 23:59 23:59 23:59 Intake Total 2115 1875 1260 Output Total 2130 3000 4850 1300 Balance -15 -1125 -3590 -1300 NAD Awake and alert neck supple, no JVD RRR, no M/R CTA, no rales or wheeze soft NT/ND + bladder distension no LE edema Del Rosario in place CBC, BMP 04/13/19 07:20 04/13/19 07:20 Current Medications Allopurinol (Zyloprim -) 100 mg PO MoWeFr@1000 [facility] Last Admin: 04/13/19 09:38 Dose: 100 mg Amlodipine Besylate (Norvasc -) 10 mg PO DAILY [facility] Last Admin: 04/14/19 09:03 Dose: 10 mg Amoxicillin/Clavulanate Potassium (Augmentin - 875mg Tablet) 1 tab PO BID@0800, 1730 [facility] Last Admin: 04/14/19 09:03 Dose: 1 tab Atorvastatin Calcium (Lipitor -) 20 mg PO HS [facility] Last Admin: 04/13/19 22:24 Dose: 20 mg Carvedilol (Coreg -) 25 mg PO BID [facility] Last Admin: 04/13/19 22:24 Dose: 25 mg Clindamycin HCl (Cleocin -) 300 mg PO TID [facility] Last Admin: 04/14/19 06:57 Dose: 300 mg Docusate Sodium (Colace -) 100 mg PO DAILY [facility] Last Admin: 04/13/19 10:25 Dose: Not Given Duloxetine HCl (Cymbalta -) 30 mg PO BID [facility] Last Admin: 04/13/19 22:21 Dose: 30 mg Ferrous Sulfate (Feosol -) 325 mg PO DAILY [facility] Last Admin: 04/13/19 09:38 Dose: 325 mg Finasteride (Proscar -) 5 mg PO HS [facility] Last Admin: 04/13/19 22:21 Dose: 5 mg Fluconazole (Diflucan -) 100 mg PO DAILY [facility] Last Admin: 04/13/19 22:22 Dose: 100 mg IV Flush (Dre-Cath Flush) 10 ml IVPUSH PRN PRN PRN Reason: Protocol Piperacillin Sod/Tazobactam (Sod 2.25 gm/ Dextrose) 50 mls @ 100 mls/hr IVPB Q6H-IV [facility] Last Admin: 04/14/19 06:56 Dose: Not Given Clindamycin Phosphate (Cleocin 300 Mg Premix Ivpb) 300 mg in 50 mls @ 100 mls/ hr IVPB Q8H-IV [facility]; Protocol Last Admin: 04/14/19 06:56 Dose: Not Given Fluconazole (Diflucan 200 Mg/Ns Premixed Ivpb -) 100 mls @ 100 mls/hr IVPB DAILY [facility] Last Admin: 04/13/19 19:30 Dose: Not Given Insulin Aspart (Novolog Vial Sliding Scale -) 1 vial SQ ACHS [facility]; Protocol Last Admin: 04/14/19 06:57 Dose: 4 units Nystatin (Mycostatin Cream -) 1 applic TP BID [facility] Last Admin: 04/13/19 22:22 Dose: 1 applic 78 year old gentleman with history of unilateral nephrectomy for RCC, hypertension, hyperlpidemia, CKD, BPH, gout and dementia who presented with dysuria, groin pain and found to have orichitis and developed acute kidney injury during the hospital admission. 1. Acute Kidney injury secondary to fluid shifts/Pre-renal injury vs. urinary retention vs. AIN 2. CKD stage 3 3. Orchitis 4. Hypertension 5. BPH Renal function improved and pt is making urine without difficulty via del rosario Maintain del rosario for now. Continue Proscar. Urology evalulation as an outpatient. can d/c IVF. Repeat BMP in 2-3 days as an outpatient. UA is bland and unlikely that patient has a acute GN no significant proteniuria noted antibioitcs as per ID Thank you Garland Guerrero DO
--- NOTE | 2019-04-14 13:16 | DS ---
Physical Exam: SUBJECTIVE: Patient seen and examined oob to chair. OBJECTIVE: Vital Signs Period Temp Pulse Resp BP Sys/Gatica Pulse Ox Last 24 Hr 97.8 F-98.5 F 63-82 16-18 138-178/64-72 97-98 PHYSICAL EXAM GENERAL: The patient is awake, alert. A&Ox2. HEAD: Normal with no signs of trauma. LUNGS: CTA HEART: Regular rate and rhythm, S1, S2 ABDOMEN: Soft, nontender, nondistended, normoactive bowel sounds EXTREMITIES: 2+ pulses, warm, well-perfused, no edema. NEUROLOGICAL: Cranial nerves II through XII grossly intact. Speech is clearly articulated; gait not observed. LABS CBCD WBC 12.7 K/mm3 (4.0-10.8) H 04/13/19 07:20 RBC 4.27 M/mm3 (4.00-5.60) 04/13/19 07:20 Hgb 12.5 GM/dl (11.7-16.9) 04/13/19 07:20 Hct 38.1 % (35.4-49) 04/13/19 07:20 MCV 89.2 fl (80-96) 04/13/19 07:20 MCHC 32.9 g/dl (32.0-35.9) 04/13/19 07:20 RDW 12.9 % (11.9-15.9) 04/13/19 07:20 Plt Count 249 K/MM3 (134-434) 04/13/19 07:20 MPV 9.0 fl (7.5-11.1) 04/13/19 07:20 CMP Sodium 139 mmol/L (136-145) 04/13/19 07:20 Potassium 3.3 mmol/L (3.5-5.1) L 04/13/19 07:20 Chloride 105 mmol/L (98-107) 04/13/19 07:20 Carbon Dioxide 27 mmol/L (21-32) 04/13/19 07:20 Anion Gap 7 MMOL/L (8-16) L 04/13/19 07:20 BUN 24.0 mg/dl (7-18) H 04/13/19 07:20 Creatinine 1.5 mg/dl (0.55-1.3) H 04/13/19 07:20 Calcium 8.6 mg/dl (8.5-10) 04/13/19 07:20 Total Bilirubin 0.7 mg/dl (0.2-1) 04/13/19 07:20 AST 14 U/L (15-37) L 04/13/19 07:20 ALT 13 U/L (13-61) 04/13/19 07:20 Alkaline Phosphatase 55 U/L (45-117) 04/13/19 07:20 Total Protein 5.3 g/dl (6.4-8.2) L 04/13/19 07:20 Albumin 2.9 g/dl (3.4-5.0) L 04/13/19 07:20 HOSPITAL COURSE: Date of Admission:04/08/19 Date of Discharge: 04/14/19 Pre hospital course 78 year-old male with a PMH siginificant for HTN, HLD, Type II NIDDM, renal cancer s/p right nephrectomy, CKD, BPH, lower GI bleed (09/2018), gout, and Alzheimer's dementia. Patient presented to [facility] on 04/01 with dysuria, discharged on 10-day course of macrobid. Today he was referred again to the ED by his PCP Dr. Lee for a groin rash, groin pain, painful urination, and elevated BP. Urine culture from 04/01 grew Group B strep and patient was switched from macrobid to amoxicillin yesterday. ER course (1) WBC 11.3 Subsequent hospital course 78 year-old male with a PMH siginificant for HTN, HLD, Type II NIDDM, renal cancer s/p right nephrectomy, CKD, BPH, lower GI bleed (09/2018), gout, and Alzheimer's dementia. Admitted for acute right-sided orchitis, severe groin fungal rash. Acute right-sided orchitis Orchiepididymitis --WBC peaked 25.6k on 04/10, trended down to 12.7k; was afebrile throughout hospital stay --US showed acute right-sided orchitis and bilateral epididymal cysts --CTAP and bilateral femurs negative for air/gas; no abscess --C&G negative --treated with Zosyn (04/10-->), Fluconazole (04/10-->), and Clinda (04/11-->) Mass left groin/base of penis --mass was seen on US in ED on 04/01 --subsequently seen by Dr. Trevizo in office, cyst removed last week Fungal groin rash --cultures (+) yeast and (+) staph --antibiotics as above --topical Nystatin Group B Strep UTI --04/01 culture (+) Group B Strep --antibiotics as above ARMANI on CKD Urinary retention BPH --Cr 1.2 on admission, peak 2.2 on 04/11, trended down to 1.5 at time of discharge --failed voiding trial on 04/11, del rosario replaced --continued Proscar --discharged with del rosario in place, will need urology outpatient followup once infection resolved Hypertension --BP controlled --continued amlodipine, carvedilol Hyperlipidemia --continued statin Type II NIDDM --Novolog sliding scale coverage h/o lower GI diverticvular bleed --stable Alzheimer's dementia --periods of agitation, per family patient at baseline functioning --continued donepezil, duloxetine Gout --continued allopurinol Minutes to complete discharge: 35 Discharge Summary Reason For Visit: CANDIADIASIS/CELLULITIS Current Active Problems Candidiasis (Acute) Cellulitis (Acute) Condition: Improved - Instructions Diet, Activity, Other Instructions: Patient is being discharged to your facility with a PICC line for administration of IV antibiotics as set forth in this discharge packet. Patient will need to be seen by his PCP Dr. Martinez when the antibiotics are complete and arrangements made for discontinuance of PICC line. Patient is also being discharged with a del rosario catheter. He will need to be seen by a urologist when his antibiotic course is finished. Dr. Mckeon and LALITHA Isabel are aware of this discharge plan. Please coordinate care with them. Referrals: Theresa Snyder NP [Nurse Practitioner] - Gutierrez Mckeon MD [Non Staff, Medical] - Disposition: [facility]ARE HOME FACILITY - Home Medications Comprehensive Discharge Medication List: Ambulatory Orders Atorvastatin Ca [Lipitor] 20 mg PO DAILY 04/01/19 Carvedilol [Coreg -] 25 mg PO BID 04/01/19 Docusate Sodium [Colace -] 100 mg PO DAILY 04/01/19 Duloxetine HCl 30 mg PO BID 04/01/19 Empagliflozin [Jardiance] 25 mg PO DAILY 04/01/19 Ferrous Sulfate 325 mg PO DAILY 04/01/19 Glipizide 10 mg PO BID 04/01/19 Mupirocin Ointment [Bactroban 2% Ointment -] 1 applic TP TID 04/01/19 Sitagliptin Phosphate [Januvia] 100 mg PO DAILY 04/01/19 Allopurinol [Zyloprim -] 100 mg PO MOWEFR 04/08/19 Finasteride [Proscar] 5 mg PO HS 04/08/19 Amlodipine Besylate 10 mg PO DAILY #30 tablet 04/13/19 Clindamycin in 0.9 % Sod Chlor [Clindamycin 300 mg/50 ml-Ns] 300 mg IV Q8H #36 vial 04/13/19 Fluconazole in NaCl,Iso-Osm [Fluconazole-NaCl 200 mg/100 ml] 200 mg IV DAILY # 36 vial 04/13/19 Nystatin Cream [Mycostatin Cream -] 1 applic TP BID applic 04/13/19 Piperacillin Sodium/Tazobactam [Zosyn 3.375 Gram Vial] 3.375 gm IV Q8H #30 vial 04/13/19 This patient is new to me today: No Emergency Visit: Yes ED Registration Date: 04/08/19 Care time: The patient presented to the Emergency Department on the above date and was hospitalized for further evaluation of their emergent condition. Critical Care patient: No - Discharge Referral Referred to [facility] Med P.C.: No
[2019-04-14] MEDS: DOCUSATE SODIUM 100 MG CAPSULE (FP) PO SCH (13:47)
[2019-04-14] MEDS: DULoxetine HCL 30 MG CAPSULE.DR PO SCH (13:48)
[2019-04-14] MEDS: FLUCONAZOLE 200 MG/NS 100 ML IVPB SCH (13:49)
--- NOTE | 2019-04-14 13:50 | PN ---
Progress Note, Physician - Current Medication List Current Medications: Active Medications Allopurinol (Zyloprim -) 100 mg PO MoWeFr@1000 [facility] Last Admin: 04/13/19 09:38 Dose: 100 mg Amlodipine Besylate (Norvasc -) 10 mg PO DAILY [facility] Last Admin: 04/14/19 09:03 Dose: 10 mg Amoxicillin/Clavulanate Potassium (Augmentin - 875mg Tablet) 1 tab PO BID@0800, 1730 [facility] Last Admin: 04/14/19 09:03 Dose: 1 tab Atorvastatin Calcium (Lipitor -) 20 mg PO HS [facility] Last Admin: 04/13/19 22:24 Dose: 20 mg Carvedilol (Coreg -) 25 mg PO BID [facility] Last Admin: 04/13/19 22:24 Dose: 25 mg Clindamycin HCl (Cleocin -) 300 mg PO TID [facility] Last Admin: 04/14/19 06:57 Dose: 300 mg Docusate Sodium (Colace -) 100 mg PO DAILY [facility] Last Admin: 04/13/19 10:25 Dose: Not Given Duloxetine HCl (Cymbalta -) 30 mg PO BID [facility] Last Admin: 04/13/19 22:21 Dose: 30 mg Ferrous Sulfate (Feosol -) 325 mg PO DAILY [facility] Last Admin: 04/13/19 09:38 Dose: 325 mg Finasteride (Proscar -) 5 mg PO [facility] Last Admin: 04/13/19 22:21 Dose: 5 mg Fluconazole (Diflucan -) 100 mg PO DAILY [facility] Last Admin: 04/13/19 22:22 Dose: 100 mg IV Flush (Dre-Cath Flush) 10 ml IVPUSH PRN PRN PRN Reason: Protocol Piperacillin Sod/Tazobactam (Sod 2.25 gm/ Dextrose) 50 mls @ 100 mls/hr IVPB Q6H-IV [facility] Last Admin: 04/14/19 06:56 Dose: Not Given Clindamycin Phosphate (Cleocin 300 Mg Premix Ivpb) 300 mg in 50 mls @ 100 mls/ hr IVPB Q8H-IV [facility]; Protocol Last Admin: 04/14/19 06:56 Dose: Not Given Fluconazole (Diflucan 200 Mg/Ns Premixed Ivpb -) 100 mls @ 100 mls/hr IVPB DAILY [facility] Last Admin: 04/13/19 19:30 Dose: Not Given Insulin Aspart (Novolog Vial Sliding Scale -) 1 vial SQ ACHS [facility]; Protocol Last Admin: 04/14/19 06:57 Dose: 4 units Nystatin (Mycostatin Cream -) 1 applic TP BID [facility] Last Admin: 04/13/19 22:22 Dose: 1 applic - Objective Vital Signs: Vital Signs Temperature 97.8 F 04/14/19 06:00 Pulse Rate 82 04/14/19 06:00 Respiratory Rate 18 04/14/19 06:00 Blood Pressure 163/67 04/14/19 06:00 O2 Sat by Pulse Oximetry (%) 97 04/13/19 22:00 Labs: CBC, BMP 04/13/19 07:20 04/13/19 07:20 INR, PTT INR 1.33 (0.82-1.09) H 04/09/19 07:49
[2019-04-14] MEDS ORDERED: PIPERACILLIN/TAZOBACTAM 2.25 GM VIAL IVPB ONE (14:02)
[2019-04-14] MEDS ORDERED: DEXTROSE 5%-WATER - 50 ML IVPB ONE (14:02)
[2019-04-14 14:17] VITALS: BP 153/67; PULSE 68; TEMP 97.6
--- NOTE | 2019-04-15 14:06 | HOSP ---
Subjective - Review of Symptoms Events since last encounter: Spoke with Leslie in microbiology. Asked her to send out wound cultures growing yeast-like organism to [facility] for further analysis. Advised Lalita Hutson. 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
== END 2019-04-14 16:18 | DRG 728 ==
LOC: FER 12:03 → FM/S 13:57 → OBSVTOIN 13:57 → INTOOBSV 13:57
PROVIDERS: ADMIT Internal Medicine; ATTEND Nurse Practitioner Acute Care
PROC: 0T9B70Z Drainage of Bladder with Drainage Device, Via Natural or Artificial Opening (ICD-10-PCS; principal; 2019-04-08)
PROC: 0JH63XZ Insertion of Tunneled Vascular Access Device into Chest Subcutaneous Tissue and Fascia, Percutaneous Approach (ICD-10-PCS; 2019-04-14)
PROC: 05HM33Z Insertion of Infusion Device into Right Internal Jugular Vein, Percutaneous Approach (ICD-10-PCS; 2019-04-14)
PROC: B513ZZA Fluoroscopy of Right Jugular Veins, Guidance (ICD-10-PCS; 2019-04-14)
DX: N45.2 Orchitis (principal); N39.0 Urinary tract infection, site not specified; N17.9 Acute kidney failure, unspecified; R33.9 Retention of urine, unspecified; I12.9 Hypertensive chronic kidney disease with stage 1 through stage 4 chronic kidney disease, or unspecified chronic kidney disease; E11.22 Type 2 diabetes mellitus with diabetic chronic kidney disease; E11.40 Type 2 diabetes mellitus with diabetic neuropathy, unspecified; N18.3 Chronic kidney disease, stage 3 (moderate); L08.0 Pyoderma; B37.2 Candidiasis of skin and nail; B95.1 Streptococcus, group B, as the cause of diseases classified elsewhere; E78.5 Hyperlipidemia, unspecified; Z90.5 Acquired absence of kidney; Z79.84 Long term (current) use of oral hypoglycemic drugs; Z85.528 Personal history of other malignant neoplasm of kidney; Z85.51 Personal history of malignant neoplasm of bladder; K57.30 Diverticulosis of large intestine without perforation or abscess without bleeding; Z87.891 Personal history of nicotine dependence; G30.9 Alzheimer's disease, unspecified; F02.80 Dementia in other diseases classified elsewhere, unspecified severity, without behavioral disturbance, psychotic disturbance, mood disturbance, and anxiety; N40.0 Benign prostatic hyperplasia without lower urinary tract symptoms; M48.00 Spinal stenosis, site unspecified; M10.9 Gout, unspecified
CPT/HCPCS: 36415; 36558; 71045-TC-FY; 73700-TC-RT; 74176-TC; 76870-TC; 80053; 81003; 81015; 82565; 82962; 83036; 83605; 83735; 84156; 84540; 85025; 85027; 85610; 85730; 87040; 87045; 87046; 87070; 87077; 87086; 87106; 87186; 87205; 87491; 87591; 93005; 97116-GP; 97162-GP; 99283-25; J0637; J7030

== ENCOUNTER 2019-05-06 18:45 | Emergency (ER) | payer OTHER, MEDICARE ==
[2019-05-06 19:58] VITALS: BP 151/82; PULSE 76; TEMP 98.7; BMI 25.0
[2019-05-06 20:30] LABS: BASO % 0.9 % (0-2.0); HEMATOCRIT 42.4 % (35.4-49); HEMOGLOBIN 13.9 GM/dl (11.7-16.9); LYMPH % 26.1 % (8-40); MCHC 32.8 g/dl (32.0-35.9); MEAN CELL VOLUME 91.5 fl (80-96); MEAN PLT VOLUME 9.1 fl (7.5-11.1); MONO % 8.4 % (3.8-10.2); NEUT % 58.6 % (42.8-82.8); PLATELET COUNT 199 K/MM3 (134-434); RBC 4.64 M/mm3 (4.00-5.60); RDW 14.3 % (11.9-15.9); WHITE BLOOD COUNT 11.2 K/mm3 (4.0-10.8)
[2019-05-06 20:33] LABS: EPITHELIAL CELLS FEW /hpf
[2019-05-06 20:37] LABS: ALBUMIN 3.8 g/dl (3.4-5.0); BILIRUBIN,TOTAL 0.6 mg/dl (0.2-1); CALCIUM 8.9 mg/dl (8.5-10); CREATININE 1.9 mg/dl (0.55-1.3); POTASSIUM 4.3 mmol/L (3.5-5.1); TOT PROT 6.1 g/dl (6.4-8.2)
[2019-05-06] MEDS ORDERED: CEFTRIAXONE 500 MG in DEXTROSE 5%-WATER - 50 ML IVPB ONE (20:44)
--- NOTE | 2019-05-06 21:11 | PDOC ---
Documentation entered by Margaret Robertson SCRIBE, acting as scribe for More Mclaughlin MD. More Mclaughlin MD: This documentation has been prepared by the Marcelo saldaña Xhesika, SCRIBE, under my direction and personally reviewed by me in its entirety. I confirm that the documentation accurately reflects all work, treatment, procedures, and medical decision making performed by me. History of Present Illness - General Chief Complaint: Urinary Catheter Problem Stated Complaint: UTI History Source: Patient Exam Limitations: Dementia - History of Present Illness Initial Comments: 05/06/19 19:16 The patient is a 78 year old male, with no significant PMH of alzheimers, htn, hl, niddm, renal ca s/p nephrectomy, spinal stenosis, hx of UTIs who presents to the emergency department [facility] from [facility] with urinary retention. Patient is a poor historian due to his alzheimers, however, as per [place] documents patient recently has a urinary catheter removed. PAST SURGICAL HISTORY: bronchoscopy, RADIOFREQUENCY ABLATION, Cholecystectomy FAMILY HISTORY: no pertinent history SOCIAL HISTORY: Pt lives in [place] MEDICATIONS: reviewed ALLERGIES: As per nursing notes 05/06/19 19:41 Assessment and plan: This is a 78-year-old male who [facility] in with [facility]. Patient at his baseline is demented however does seem to be able to answer questions but is confused. Patient was without complaints but did have approximately a liter of urine in his bladder. Patient had an indwelling catheter that was removed but it is unclear as to when. Patient had a normal exam otherwise and will follow-up labs CBC, comp, UA. Plan is patient will most likely be discharged back to his [facility]. 05/06/19 21:08 Patient is white count is mildly elevated 11.2. Patient is afebrile. Patient does have a urinary tract infection. Patient given a dose of IM ceftriaxone as he refused IV ceftriaxone. Patient discharged on Cipro. Patient does have some elevation of his renal function that is an acute on chronic component with a slightly more elevated BUN. The elevated BUN is most likely secondary to his urinary retention and will likely improve now that he has a Sheikh again. Patient does have an appointment to follow-up with his urologist next week. Patient discharged back to his [facility]it[facility]. Past History - Past Medical History Allergies/Adverse Reactions: Allergies Allergy/AdvReac Type Severity Reaction Status Date / Time No Known Drug Allergies Allergy Verified 04/08/19 12:20 Home Medications: Ambulatory Orders Atorvastatin Ca [Lipitor] 20 mg PO DAILY 04/01/19 Carvedilol [Coreg -] 25 mg PO BID 04/01/19 Docusate Sodium [Colace -] 100 mg PO DAILY 04/01/19 Duloxetine HCl 30 mg PO BID 04/01/19 Empagliflozin [Jardiance] 25 mg PO DAILY 04/01/19 Ferrous Sulfate 325 mg PO DAILY 04/01/19 Glipizide 10 mg PO BID 04/01/19 Mupirocin Ointment [Bactroban 2% Ointment -] 1 applic TP TID 04/01/19 Sitagliptin Phosphate [Januvia] 100 mg PO DAILY 04/01/19 Allopurinol [Zyloprim -] 100 mg PO MOWEFR 04/08/19 Finasteride [Proscar] 5 mg PO HS 04/08/19 Amlodipine Besylate 10 mg PO DAILY #30 tablet 04/13/19 Clindamycin in 0.9 % Sod Chlor [Clindamycin 300 mg/50 ml-Ns] 300 mg IV Q8H #36 vial 04/13/19 Fluconazole in NaCl,Iso-Osm [Fluconazole-NaCl 200 mg/100 ml] 200 mg IV DAILY # 36 vial 04/13/19 Nystatin Cream [Mycostatin Cream -] 1 applic TP BID applic 04/13/19 Piperacillin Sodium/Tazobactam [Zosyn 3.375 Gram Vial] 3.375 gm IV Q8H #30 vial 04/13/19 Ciprofloxacin HCl [Cipro] 500 mg PO BID #14 tablet 05/06/19 Anemia: No Asthma: No Cancer: Yes (RENAL CANCER) Cardiac Disorders: No CVA: No COPD: No CHF: No Dementia: Yes Diabetes: Yes (Neuropathy) GI Disorders: Yes (Diverticulitis,) Disorders: Yes (H/O RENAL CANCER, S/P RIGHT NEPHRECTOMY) HTN: Yes Hypercholesterolemia: Yes Liver Disease: No Seizures: No Thyroid Disease: No - Surgical History Abdominal Surgery: No Appendectomy: No Cardiac Surgery: No Cholecystectomy: Yes Lung Surgery: Yes (bronchoscopy) Neurologic Surgery: No Orthopedic Surgery: Yes (RADIOFREQUENCY ABLATION) - Psycho Social/Smoking Cessation Hx Smoking Status: Yes Smoking History: Unknown if ever smoked Have you smoked in the past 12 months: No Number of Cigarettes Smoked Daily: 20 If you are a former smoker, when did you quit?: 1989 Alcohol Use: No Drug/Substance Use Hx: No Substance Use Type: None Hx Substance Use Treatment: No Abd/GI Specific PMHX - Complaint Specific PMHX GERD: No GI Ulcer Disease: No Review of Systems - Review of Systems Able to Perform ROS?: Yes Comments:: 05/06/19 19:18 Limited secondary to patients dementia. General: No fevers or chills, no weakness, no weight loss CardioVascular: No chest pain or shortness of breath Respiratory:No cough, or wheezing. Genitourinary: + urinary retention. No dysuria, hematuria, or frequency All other systems reviewed and normal *Physical Exam - Physical Exam Comments: 05/06/19 19:20 General: Well-nourished well-developed individual, no acute distress HEENT: Throat: Normal, tonsils normal, no erythema or exudate Neck: Supple, no meningeal signs, no lymphadenopathy Eyes::Pupils equal reactive and round, extraocular motion intact Chest: Nontender to palpation Cardiac: S1-S2 normal, regular rate and rhythm, no murmurs rubs or gallops Respiratory: Lungs clear to auscultation bilateral Abdomen: Soft, nondistended, normal bowel sounds, nontender to palpation diffusely Extremities: Warm, dry, no cyanosis, clubbing, or edema Skin: No rashes Neuro: Alert and oriented x3, nonfocal exam, grossly intact Psych: Normal mood and affect ED Treatment Course - LABORATORY CBC & Chemistry Diagram: 05/06/19 20:05 05/06/19 20:05 Discharge - Discharge Information Problems reviewed: Yes Clinical Impression/Diagnosis: Acute cystitis Qualifiers: Hematuria presence: without hematuria Qualified Code(s): N30.00 - Acute cystitis without hematuria Condition: Good Disposition: [facility] - Admission No - Additional Discharge Information Prescriptions: Ciprofloxacin HCl [Cipro] 500 mg PO BID #14 tablet - Follow up/Referral Referrals: Apolinar Josue MD [Primary Care Provider] - - Patient Discharge Instructions Additional Instructions: Get the prescription filled for ciprofloxacin and take 1 tablet twice a day for 7 days.. Drink plenty of fluids and stay well-hydrated. Keep your appointment with the urologist for next week. Return to the emergency department immediately with ANY new, persistent or worsening symptoms. Continue any medications as previously prescribed by your physician. You should follow up with your primary doctor as soon as possible regarding today's emergency department visit. . Please make sure your doctor reviews the results of your emergency evaluation. Thank you for coming to the Emergency Department today for your care. It was a pleasure to see you today. Please note that your evaluation is INCOMPLETE until you follow-up with your doctor. - Post Discharge Activity
== END 2019-05-07 00:12 ==
LOC: FER 18:45
PROC: 3E03329 Introduction of Other Anti-infective into Peripheral Vein, Percutaneous Approach (ICD-10-PCS; principal; 2019-05-06)
PROC: 0T9B70Z Drainage of Bladder with Drainage Device, Via Natural or Artificial Opening (ICD-10-PCS; 2019-05-06)
DX: N30.00 Acute cystitis without hematuria (principal); G30.9 Alzheimer's disease, unspecified; F02.80 Dementia in other diseases classified elsewhere, unspecified severity, without behavioral disturbance, psychotic disturbance, mood disturbance, and anxiety; F05 Delirium due to known physiological condition; I10 Essential (primary) hypertension; E78.5 Hyperlipidemia, unspecified; E11.9 Type 2 diabetes mellitus without complications; Z85.53 Personal history of malignant neoplasm of renal pelvis; Z90.5 Acquired absence of kidney; Z87.440 Personal history of urinary (tract) infections
CPT/HCPCS: 36415; 51702; 80053; 81003; 81015; 85025; 87086; 87186; 96365; 99283-25